=== PATIENT | male | born 1955 | race American Indian/Alaskan Native ===

== ENCOUNTER 2018-04-17 15:12 | Inpatient (IN) | payer MEDICARE ==
--- NOTE | 2018-04-17 16:30 | Emergency Department Report ---
HPI - General Chief Complaint: Weakness Time Seen by Provider: 04/17/18 16:12 - HPI HPI: Room 7 The patient is 62-year-old male presented with a chief complaint weakness. The patient states he's had weakness and shortness of breath since yesterday. Pat jasmyn states he had an intermittent nosebleed throughout the night until early this morning. Patient denies cough or history of fever. Patient denies chest pain but admits to bilateral stump pain from his bilateral AKA's. Location: [See above] Duration: Constant since yesterday Quality: Weakness Severity: Moderate Modifying factors: [see above] Context: [see above] Mode of transportation: [not driving] ED Past Medical Hx - Past Medical History Previous Medical History?: Yes Hx Hypertension: Yes Hx Heart Attack/AMI: Yes Hx Congestive Heart Failure: Yes Hx Diabetes: Yes Hx Renal Disease: Yes (ZULLY) Hx Arthritis: Yes Hx Psychiatric Treatment: Yes (depression) Hx Asthma: Yes Hx COPD: Yes Additional medical history: angina, atrial fib, CAD, DVT, atrial flutter, Anemia, GI bleed, polysubstance abuse, hyperkalemia, hyponatremia, thrombocytopenia, PVD, Alcohol, cocaine, marijuana abuse - Surgical History Past Surgical History?: Yes Hx Coronary Stent: Yes (x4) Hx Pacemaker: Yes Additional Surgical History: Bilateral AKA - Family History Family history: no significant - Social History Smoking Status: Current Every Day Smoker (1/7 pack per day) Substance Use Type: None ED Review of Systems ROS: Stated complaint: WEAKNESS/NOSE BLEED Other details as noted in HPI Constitutional: weakness Eyes: denies: eye pain ENT: denies: throat pain Respiratory: shortness of breath Cardiovascular: denies: chest pain Endocrine: no symptoms reported Gastrointestinal: other (decreased appetite). denies: abdominal pain Genitourinary: denies: dysuria Musculoskeletal: myalgia Neurological: denies: headache Physical Exam - Physical Exam Vital Signs: Vital Signs 04/17/18 15:12 Temperature 98.5 F Pulse Rate 83 Respiratory 17 Rate Blood Pressure 131/40 O2 Sat by Pulse 97 Oximetry Physical Exam: GENERAL: The patient is well-developed well-nourished male lying on stretcher not appearing to be in acute distress. [] HEENT: Normocephalic. Atraumatic. Extraocular motions are intact. Patient has moist mucous membranes. NECK: Supple. Trachea midline CHEST/LUNGS: Clear to auscultation. There is no respiratory distress noted. HEART/CARDIOVASCULAR: Regular. There is no tachycardia. There is no gallop rub or murmur. ABDOMEN: Abdomen is soft, nontender. Patient has normal bowel sounds. There is no abdominal distention. SKIN: There is no rash. There is no diaphoresis. NEURO: The patient is awake, alert, and oriented. The patient is cooperative. The patient has normal speech MUSCULOSKELETAL: There is no evidence of acute injury. ED Course Vital Signs 04/17/18 15:12 Temperature 98.5 F Pulse Rate 83 Respiratory 17 Rate Blood Pressure 131/40 O2 Sat by Pulse 97 Oximetry ED Medical Decision Making - Lab Data Result diagrams: 04/17/18 16:52 04/17/18 16:52 Laboratory Tests 04/17/18 04/17/18 04/17/18 16:52 16:52 16:52 WBC 5.7 RBC 1.85 L Hgb 5.3 L* Hct 15.9 L* MCV 86 MCH 29 MCHC 34 RDW 19.7 H Plt Count 162 Lymph % (Auto) 20.1 [place] % (Auto) 5.7 Eos % (Auto) 0.7 Baso % (Auto) 0.5 Lymph # 1.1 L [place] # 0.3 Eos # 0.0 Baso # 0.0 Seg Neutrophils % 73.0 H Seg Neutrophils # 4.1 PT 59.6 H INR 6.93 H* APTT 69.9 H* D-Dimer 613.63 H Sodium 150 H Potassium 2.9 L* Chloride 111.2 H Carbon Dioxide 25 Anion Gap 17 BUN 47 H Creatinine 1.3 Estimated GFR > 60 BUN/Creatinine Ratio 36 Glucose 119 H Calcium 8.2 L Magnesium Total Bilirubin 0.60 AST 20 ALT 10 Alkaline Phosphatase 82 Total Creatine Kinase 35 L CK-MB (CK-2) 2.0 CK-MB (CK-2) Rel Index 5.7 H Troponin T 0.084 H NT-Pro-B Natriuret Pep 3276 H Total Protein 6.8 Albumin 3.0 L Albumin/Globulin Ratio 0.8 Triglycerides 69 Cholesterol 89 LDL Cholesterol Direct 46 L HDL Cholesterol 35 L Cholesterol/HDL Ratio 2.54 TSH Free T4 Urine Color Urine Turbidity Urine pH Ur Specific [place] Urine Protein Urine Glucose (UA) Urine Ketones Urine Blood Urine Nitrite Urine Bilirubin Urine Urobilinogen Ur Leukocyte Esterase Urine WBC (Auto) Urine RBC (Auto) U Epithel Cells (Auto) Urine Bacteria (Auto) 04/17/18 04/17/18 04/17/18 16:52 16:52 17:34 WBC RBC Hgb Hct MCV MCH MCHC RDW Plt Count Lymph % (Auto) [place] % (Auto) Eos % (Auto) Baso % (Auto) Lymph # Benson # Eos # Baso # Seg Neutrophils % Seg Neutrophils # PT INR APTT D-Dimer Sodium Potassium Chloride Carbon Dioxide Anion Gap BUN Creatinine Estimated GFR BUN/Creatinine Ratio Glucose Calcium Magnesium 1.40 L Total Bilirubin AST ALT Alkaline Phosphatase Total Creatine Kinase CK-MB (CK-2) CK-MB (CK-2) Rel Index Troponin T NT-Pro-B Natriuret Pep Total Protein Albumin Albumin/Globulin Ratio Triglycerides Cholesterol LDL Cholesterol Direct HDL Cholesterol Cholesterol/HDL Ratio TSH 1.390 Free T4 1.51 H Urine Color Yellow Urine Turbidity Clear Urine pH 5.0 Ur Specific [place] 1.009 Urine Protein <15 mg/dl Urine Glucose (UA) Neg Urine Ketones Neg Urine Blood Neg Urine Nitrite Pos Urine Bilirubin Neg Urine Urobilinogen 2.0 Ur Leukocyte Esterase Mod Urine WBC (Auto) 101.0 H Urine RBC (Auto) 1.0 U Epithel Cells (Auto) 1.0 Urine Bacteria (Auto) 1+ - EKG Data -: EKG Interpreted by Me EKG shows normal: sinus rhythm Rate: normal - EKG Data When compared to previous EKG there are: previous EKG unavailable Interpretation: nonspecific ST-T wave hernan (T-wave inversions in V5, V6, 1, aVL) - Radiology Data Radiology results: report reviewed (chest x-ray), image reviewed (chest x-ray) interpreted by me: Chest x-ray-right pleural effusion [facility] [address] [place] [address] XRay Report Signed Patient: ROXANE BARNHART MR#: [id number] : 1955 Acct:[id number] Age/Sex: 62 / M ADM Date: 04/17/18 Loc: ED Attending Dr: Ordering Physician: ANDREY VORA MD Date of Service: 04/17/18 Procedure(s): XR chest 1V ap Accession Number(s): [id number] cc: ANDREY VORA MD Fluoro Time In Minutes: FINAL REPORT EXAM: XR CHEST 1V AP HISTORY: shortness of breath COMPARISON: None. TECHNIQUE: Single frontal view of the chest FINDINGS: Left-sided defibrillator and median sternotomy wires are intact. There is mild cardiomegaly. There are streaky perihilar opacities. There is a small right pleural effusion. No pneumothorax. No acute bony or soft tissue abnormality. There are surgical clips in the right axilla. IMPRESSION: Findings of congestive heart failure, including mild cardiomegaly, interstitial edema, and small right pleural effusion. Transcribed By: DELVIN Dictated By: DK CASTANO MD Electronically Authenticated By: DK CASTANO MD Signed Date/Time: 04/17/181641 DD/ 40 TD/TT: 04/17/181640 - Differential Diagnosis symptomatic anemia, hyponatremia, GI bleed, hypothyroidism Critical care attestation.: If time is entered above; I have spent that time in minutes in the direct care of this critically ill patient, excluding procedure time. ED Disposition Clinical Impression: Weakness, Pleural effusion, Symptomatic anemia, Hypokalemia, UTI (urinary tract infection) Disposition: OP ADMIT IP TO THIS HOSP Is pt being admited?: Yes Does the pt Need Aspirin: No Condition: Fair Time of Disposition: 17:54 (hospitalist paged (Dr Hatch))
--- NOTE | 2018-04-17 16:42 | XRay Report ---
FINAL REPORT EXAM: XR CHEST 1V AP HISTORY: shortness of breath COMPARISON: None. TECHNIQUE: Single frontal view of the chest FINDINGS: Left-sided defibrillator and median sternotomy wires are intact. There is mild cardiomegaly. There are streaky perihilar opacities. There is a small right pleural effusion. No pneumothorax. No acute bony or soft tissue abnormality. There are surgical clips in the right axilla. IMPRESSION: Findings of congestive heart failure, including mild cardiomegaly, interstitial edema, and small righ t pleural effusion.
[2018-04-17 17:06] LABS: Basophils % (Auto) 0.5 % (0.0-1.8); Eosinophils % (Auto) 0.7 % (0.0-4.3); Lymphocytes # (Auto) 1.1 K/mm3 (1.2-5.4); Lymphocytes % (Auto) 20.1 % (13.4-35.0); Mean Corpuscular HGB Conc 34 % (32-34); Mean Corpuscular Volume 86 fl (84-94); Monocytes # (Auto) 0.3 K/mm3 (0.0-0.8); Monocytes % (Auto) 5.7 % (0.0-7.3); Platelet Count 162 K/mm3 (140-440); Red Blood Count 1.85 M/mm3 (3.65-5.03); Red Cell Distribution Width 19.7 % (13.2-15.2)
[2018-04-17] MEDS ORDERED: NORCO 5/325 PO ONE (17:16)
[2018-04-17 17:29] LABS: Alanine Aminotransferase 10 units/L (7-56)
[2018-04-17 17:36] LABS: Free T4 (Free Thyroxine) 1.51 ng/dL (0.76-1.46)
[2018-04-17 17:37] LABS: Hemoglobin 5.3 gm/dl (11.8-15.2)
[2018-04-17] MEDS ORDERED: NACL 0.9% 500 ML 500 ML IV ONE (17:37)
[2018-04-17 17:38] LABS: Hematocrit 15.9 % (35.5-45.6); INR 6.93 (0.87-1.13); Partial Thromboplastin Time 69.9 Sec. (24.2-36.6)
[2018-04-17] MEDS ORDERED: MAGNESIUM SULFATE 2GM/50ML 2 GM/50 ML BAG IV ONE (17:39)
[2018-04-17 17:45] LABS: BUN/Creatinine Ratio 36; Blood Urea Nitrogen 47 mg/dL (9-20); Calcium 8.2 mg/dL (8.4-10.2); Hemolysis Index 5
[2018-04-17] MEDS ORDERED: K-DUR PO ONE (17:54)
[2018-04-17 17:56] LABS: Bacteria,Urine 1+ /HPF (Negative); Bilirubin,Urine NEG (Negative); Blood,Urine NEG (Negative); Color,Urine Yellow (Yellow); Protein,Urine <15 mg/dL mg/dL (Negative)
[2018-04-17 18:00] LABS: Chol/HDL Ratio 2.54 %; HDL Cholesterol 35 mg/dL (40-59); LDL Cholesterol,Direct 46 mg/dL (50-130)
[2018-04-17] MEDS ORDERED: LEVAQUIN 750MG/150ML 750 MG/150 ML BAG IV ONE (18:27)
[2018-04-17] MEDS ORDERED: DILAUDID IV ONE (18:40)
[2018-04-17] MEDS ORDERED: ZOFRAN IV ONE (18:40)
[2018-04-17] MEDS ORDERED: ZOFRAN ONE (18:43)
[2018-04-17] MEDS ORDERED: DILAUDID ONE (18:43)
[2018-04-17] MEDS ORDERED: NACL 0.9% 250ML 250 ML ONE (20:26)
[2018-04-17] MEDS ORDERED: SODIUM CHLORIDE FLUSH SYRINGE 10 ML IV PRN (22:36)
[2018-04-17] MEDS ORDERED: D50W (25GM) Syringe IV PRN (22:36)
--- NOTE | 2018-04-18 00:26 | History and Physical Report ---
History of Present Illness Date of examination: 04/17/18 Date of admission: 04/17/18 18:25 History of present illness: 62-year-old man with a history of hypertension, coronary artery disease, CHF, diabetes, chronic kidney disease, depression, asthma, COPD, A. fib on Coumadin comes emergency room with complaints of nosebleed yesterday 2 days, he had multiple episodes. He currently has no nosebleed Review of systems Constitutional: no weight loss, chills, fever Ears, eyes, nose, mouth and throat: no nasal congestion, no nasal discharge, no sinus pressure, no vision change, no red eye. Neck: No neck pain or rigidity. Cardiovascular: no palpitations, chest pain Respiratory: no cough, shortness of breath Gastrointestinal: no hematochezia, abdominal pain Genitourinary : no frequency , no hematuria Musculoskeletal: no joint swelling or muscle ache Integumentary: no rash, no pruritis Neurological: no parathesias, no focal weakness Endocrine: no cold or heat intolerance, no polyuria or polydipsia Hematologic/Lymphatic: no easy bruising, no easy bleeding, no gland swelling Allergic/Immunologic: no urticaria, no angioedema. PAST MEDICAL HISTORY:hypertension, coronary artery disease, CHF, diabetes, chronic kidney disease, depression, asthma, COPD, A. fib PAST SURGICAL HISTORY: Pacemaker, bilateral AKA SOCIAL HISTORY: Denies alcohol, drugs, tobacco FAMILY HISTORY: Hypertension Medications and Allergies Allergies Allergy/AdvReac Type Severity Reaction Status Date / Time No Known Allergies Allergy Verified 04/17/18 15:59 Active Meds: Active Medications Acetaminophen (Tylenol) 650 mg PO Q4H PRN PRN Reason: Pain MILD(1-3)/Fever >100.5/SCHULZ Dextrose (D50w (25gm) Syringe) 50 ml IV PRN PRN PRN Reason: Hypoglycemia Ceftriaxone Sodium (Rocephin/Ns 1 Gm/50 Ml) 1 gm in 50 mls @ 100 mls/hr IV Q24HR SUN; Protocol Insulin Human Lispro (Humalog) 0 unit SUB-Q ACHS SUN; Protocol Ondansetron HCl (Zofran) 4 mg IV Q8H PRN PRN Reason: Nausea And Vomiting Sodium Chloride (Sodium Chloride Flush Syringe 10 Ml) 10 ml IV BID SUN Sodium Chloride (Sodium Chloride Flush Syringe 10 Ml) 10 ml IV PRN PRN PRN Reason: LINE FLUSH Exam - Physical Exam Narrative exam: General Apperance: The patient lying in bed, breathing comfortable HEENT: Normocephalic, atraumatic. Pupils equally round and reactive to light, EOMI, no sclericterus or JVD or thyromegaly or nodule. , no carotid bruit, mucous membranes moist, no exudate or erythema Heart: S1-S2, regular is rhythm Lungs: Clear to auscultation bilaterally, breathing comfortable Abdomen: Positive bowel sounds, soft, nontender, nondistended, no organomegaly Extremities: Bilateral AKA, No edema cyanosis clubbing Skin: no rash, nodule, warm and dry Neuro: cranial nerves 2-12 intact, speech is fluent, motor/sensory intact - Constitutional Vitals: Temp Pulse Resp BP Pulse Ox 97.6 F 78 17 129/68 98 04/17/18 22:25 04/17/18 22:25 04/17/18 22:25 04/17/18 22:25 04/17/18 22:25 Results - Labs CBC & Chem 7: 04/17/18 16:52 04/17/18 16:52 Labs: Abnormal lab results 04/17/18 04/17/18 04/17/18 Range/Units 16:52 16:52 16:52 RBC 1.85 L (3.65-5.03) M/mm3 Hgb 5.3 L* (11.8-15.2) gm/dl Hct 15.9 L* (35.5-45.6) % RDW 19.7 H (13.2-15.2) % Lymph # 1.1 L (1.2-5.4) K/mm3 Seg Neutrophils % 73.0 H (40.0-70.0) % PT 59.6 H (12.2-14.9) Sec. INR 6.93 H* (0.87-1.13) APTT 69.9 H* (24.2-36.6) Sec. D-Dimer 613.63 H (0-234) ng/mlDDU Sodium 150 H (137-145) mmol/L Potassium 2.9 L* (3.6-5.0) mmol/L Chloride 111.2 H (98-107) mmol/L BUN 47 H (9-20) mg/dL Glucose 119 H (75-100) mg/dL Calcium 8.2 L (8.4-10.2) mg/dL Magnesium (1.7-2.3) mg/dL Total Creatine Kinase 35 L (55-170) units/L CK-MB (CK-2) Rel Index 5.7 H (0-4) Troponin T 0.084 H (0.00-0.029) ng/mL NT-Pro-B Natriuret Pep 3276 H (0-900) pg/mL Albumin 3.0 L (3.9-5) g/dL LDL Cholesterol Direct 46 L (50-130) mg/dL HDL Cholesterol 35 L (40-59) mg/dL Free T4 (0.76-1.46) ng/dL Urine WBC (Auto) (0.0-6.0) /HPF Crossmatch 04/17/18 04/17/18 04/17/18 Range/Units 16:52 16:52 16:52 RBC (3.65-5.03) M/mm3 Hgb (11.8-15.2) gm/dl Hct (35.5-45.6) % RDW (13.2-15.2) % Lymph # (1.2-5.4) K/mm3 Seg Neutrophils % (40.0-70.0) % PT (12.2-14.9) Sec. INR (0.87-1.13) APTT (24.2-36.6) Sec. D-Dimer (0-234) ng/mlDDU Sodium (137-145) mmol/L Potassium (3.6-5.0) mmol/L Chloride (98-107) mmol/L BUN (9-20) mg/dL Glucose (75-100) mg/dL Calcium (8.4-10.2) mg/dL Magnesium 1.40 L (1.7-2.3) mg/dL Total Creatine Kinase (55-170) units/L CK-MB (CK-2) Rel Index (0-4) Troponin T (0.00-0.029) ng/mL NT-Pro-B Natriuret Pep (0-900) pg/mL Albumin (3.9-5) g/dL LDL Cholesterol Direct (50-130) mg/dL HDL Cholesterol (40-59) mg/dL Free T4 1.51 H (0.76-1.46) ng/dL Urine WBC (Auto) (0.0-6.0) /HPF Crossmatch See Detail 04/17/18 04/17/18 Range/Units 17:34 23:08 RBC (3.65-5.03) M/mm3 Hgb (11.8-15.2) gm/dl Hct (35.5-45.6) % RDW (13.2-15.2) % Lymph # (1.2-5.4) K/mm3 Seg Neutrophils % (40.0-70.0) % PT (12.2-14.9) Sec. INR (0.87-1.13) APTT (24.2-36.6) Sec. D-Dimer (0-234) ng/mlDDU Sodium (137-145) mmol/L Potassium (3.6-5.0) mmol/L Chloride (98-107) mmol/L BUN (9-20) mg/dL Glucose (75-100) mg/dL Calcium (8.4-10.2) mg/dL Magnesium (1.7-2.3) mg/dL Total Creatine Kinase 39 L (55-170) units/L CK-MB (CK-2) Rel Index 5.1 H (0-4) Troponin T (0.00-0.029) ng/mL NT-Pro-B Natriuret Pep (0-900) pg/mL Albumin (3.9-5) g/dL LDL Cholesterol Direct (50-130) mg/dL HDL Cholesterol (40-59) mg/dL Free T4 (0.76-1.46) ng/dL Urine WBC (Auto) 101.0 H (0.0-6.0) /HPF Crossmatch - Imaging and Cardiology EKG: image reviewed Chest x-ray: report reviewed Assessment and Plan Assessment Blood loss anemia Nosebleed, resolved Urinary tract infection Coagulopathy Hypernatremia Coronary artery disease Hypertension CHF Diabetes Chronic kidney disease Depression COPD A. fib Plan Transfuse packed red blood cells Monitor PT/INR, hold coumadin Start IV Rocephin, follow cultures Continue appropriate outpatient medication DVT prophylaxis
[2018-04-18] MEDS ORDERED: NACL 0.9% 500 ML 500 ML IV SCH (02:31)
[2018-04-18] MEDS: TYLENOL PO PRN (02:39)
[2018-04-18] MEDS: HumaLOG SUB-Q SCH ×4 (08:29→22:16)
[2018-04-18] MEDS: MORPHINE IV PRN ×4 (09:20→23:56)
[2018-04-18] MEDS: SODIUM CHLORIDE FLUSH SYRINGE 10 ML IV SCH ×2 (09:23→22:16)
[2018-04-18] MEDS: ROCEPHIN/NS 1 GM/50 ML 1 GM/50 ML BAG IV SCH (10:30)
--- NOTE | 2018-04-18 12:12 | Consultation ---
History of Present Illness Consult date: 04/18/18 Requesting physician: JEANETTE GARZA Consult reason: congestive heart failure History of present illness: The patient is well-known to me from many years ago. However, he has not been to our local office for a few years now. It appears that he has been hospitalized multiple times at [facility] and even recently. He claims that following his last discharge from rehabilitation, his INR has not been checked. He presents to the ER with a 2 day history of epistaxis which he claims produced significant amount of clots. He has also noticed melanotic stools for about 2 weeks. In addition, he complains of worsening of chronic dyspnea as well as chronic orthopnea. There is no chest pain. Past History Past Medical History: atrial fib (PAF/Flutter), arrhythmia (AVNRT; Failed abla tion attempt for AFlutter), CAD, diabetes, heart failure (Chronic HFrEF), hypertension, other (Ischemic CMP, EF 30-35% in 03/05; Gastric ulcer; Hep C) Past Surgical History: CABG, PTCA, Other (s/p Bilateral AKA; ICD) Social history: denies: smoking, alcohol abuse Family history: denies: CAD Medications and Allergies Allergies Allergy/AdvReac Type Severity Reaction Status Date / Time No Known Allergies Allergy Verified 04/17/18 15:59 Active Meds: Active Medications Acetaminophen (Tylenol) 650 mg PO Q4H PRN PRN Reason: Pain MILD(1-3)/Fever >100.5/SCHULZ Last Admin: 04/18/18 02:39 Dose: 650 mg Documented by: Dextrose (D50w (25gm) Syringe) 50 ml IV PRN PRN PRN Reason: Hypoglycemia Ceftriaxone Sodium (Rocephin/Ns 1 Gm/50 Ml) 1 gm in 50 mls @ 100 mls/hr IV Q24HR SUN; Protocol Last Admin: 04/18/18 10:30 Dose: 100 mls/hr Documented by: Sodium Chloride (Nacl 0.9% 500 Ml) 500 mls @ 50 mls/hr IV DIRECT SUN Insulin Human Lispro (Humalog) 0 unit SUB-Q ACHS SUN; Protocol Last Admin: 04/18/18 08:29 Dose: Not Given Documented by: Morphine Sulfate (Morphine) 2 mg IV Q4H PRN PRN Reason: Pain, Moderate (4-6) Last Admin: 04/18/18 09:20 Dose: 2 mg Documented by: Ondansetron HCl (Zofran) 4 mg IV Q8H PRN PRN Reason: Nausea And Vomiting Sodium Chloride (Sodium Chloride Flush Syringe 10 Ml) 10 ml IV BID SUN Last Admin: 04/18/18 09:23 Dose: 10 ml Documented by: Sodium Chloride (Sodium Chloride Flush Syringe 10 Ml) 10 ml IV PRN PRN PRN Reason: LINE FLUSH Review of Systems Constitutional: no fever, no chills Ears, nose, mouth and throat: epistaxis, no ear pain, no ear discharge, no sore throat Cardiovascular: orthopnea, shortness of breath, dyspnea on exertion, no chest pain Respiratory: shortness of breath, dyspnea on exertion, no cough, no hemoptysis Gastrointestinal: nausea, no abdominal pain, no vomiting, no diarrhea, no constipation Genitourinary Male: no dysuria, no hematuria, no urinary frequency Musculoskeletal: no neck stiffness, no neck pain, no myalgias Integumentary: no rash, no pruritis Neurological: no weakness, no parathesias, no headaches Endocrine: no cold intolerance, no heat intolerance Hematologic/Lymphatic: easy bleeding, no easy bruising Allergic/Immunologic: no urticaria, no angioedema Physical Examination Vital Signs Last Vital Signs Temp 98.5 F 04/18/18 06:00 Pulse 83 04/18/18 07:38 Resp 18 04/18/18 07:38 BP 110/55 04/18/18 07:38 Pulse Ox 100 04/18/18 07:38 General appearance: no acute distress HEENT: Positive: EOMI, Normocephaly, Mucus Membranes Moist Neck: Positive: neck supple, trachea midline, JVD/HJR (elevated) Cardiac: Positive: Reg Rate and Rhythm, S1/S2 Lungs: Positive: clear to auscultation Neuro: Positive: Grossly Intact Abdomen: Positive: Soft, Active Bowel Sounds. Negative: Tender Skin: Positive: Clear. Negative: Rash Musculoskeletal: Normal Range of Motion Extremities: Present: Other (s/p bilateral AKA). Absent: edema Results 04/17/18 16:52 04/17/18 16:52 Cardiac Enzymes 04/17/18 04/17/18 Range/Units 16:52 23:08 AST 20 (5-40) units/L CK-MB (CK-2) 2.0 2.0 (0.0-4.0) ng/mL Coagulation 04/17/18 Range/Units 16:52 PT 59.6 H (12.2-14.9) Sec. INR 6.93 H* (0.87-1.13) APTT 69.9 H* (24.2-36.6) Sec. Lipids 04/17/18 Range/Units 16:52 Triglycerides 69 (2-149) mg/dL Cholesterol 89 (50-199) mg/dL HDL Cholesterol 35 L (40-59) mg/dL Cholesterol/HDL Ratio 2.54 % CBC 04/17/18 Range/Units 16:52 WBC 5.7 (4.5-11.0) K/mm3 RBC 1.85 L (3.65-5.03) M/mm3 Hgb 5.3 L* (11.8-15.2) gm/dl Hct 15.9 L* (35.5-45.6) % Plt Count 162 (140-440) K/mm3 Lymph # 1.1 L (1.2-5.4) K/mm3 [place] # 0.3 (0.0-0.8) K/mm3 Eos # 0.0 (0.0-0.4) K/mm3 Baso # 0.0 (0.0-0.1) K/mm3 Comprehensive Metabolic Panel 04/17/18 Range/Units 16:52 Sodium 150 H (137-145) mmol/L Potassium 2.9 L* (3.6-5.0) mmol/L Chloride 111.2 H (98-107) mmol/L Carbon Dioxide 25 (22-30) mmol/L BUN 47 H (9-20) mg/dL Creatinine 1.3 (0.8-1.5) mg/dL Glucose 119 H (75-100) mg/dL Calcium 8.2 L (8.4-10.2) mg/dL AST 20 (5-40) units/L ALT 10 (7-56) units/L Alkaline Phosphatase 82 (35-129) units/L Total Protein 6.8 (6.3-8.2) g/dL Albumin 3.0 L (3.9-5) g/dL - Imaging and Cardiology EKG: image reviewed EKG interpretations - Telemetry EKG Rhythm: Sinus Rhythm - EKG Sinus rhythms and dysrhythmias: sinus rhythm Repolarization changes or abnormalities: ST or T wave suggestive of ischemia Assessment and Plan Consider PRBC transfusion. His Guideline-Directed cardiac medications will be resumed as tolerated. Need to also exclude GI bleed. - Patient Problems (1) Epistaxis Current Visit: Yes Status: Acute (2) Melena Current Visit: Yes Status: Acute (3) Severe anemia Current Visit: Yes Status: Acute (4) Supratherapeutic INR Current Visit: Yes Status: Acute (5) Acute on chronic HFrEF (heart failure with reduced ejection fraction) Current Visit: Yes Status: Acute (6) Ischemic cardiomyopathy Current Visit: Yes Status: Acute (7) CAD (coronary artery disease) Current Visit: Yes Status: Chronic Qualifiers: Coronary Disease-Associated Artery/Lesion type: [place] artery (8) Hx of CABG Current Visit: Yes Status: Chronic (9) AICD (automatic cardioverter/defibrillator) present Current Visit: Yes Status: Acute (10) PAF (paroxysmal atrial fibrillation) Current Visit: Yes Status: Chronic (11) H/O gastric ulcer Current Visit: Yes Status: Resolved (12) UTI (urinary tract infection) Current Visit: Yes Status: Acute (13) S/P AKA (above knee amputation) bilateral Current Visit: Yes Status: Acute (14) Diabetes mellitus Current Visit: Yes Status: Acute
--- NOTE | 2018-04-18 12:27 | Progress Note ---
Assessment and Plan Assessment and plan: Severe anemia due to acute blood loss. Epistaxis and possible GI loss hemoglobin 5.3 and only 5.9 after 2 Units PRBC. Will transfuse 2 units PRBC more Coagulopathy with INR now 9, due to Coumadin Give FFP and Vitamin K I discussed with Cardiology Hold Coumadin Epistaxis due to coagulopathy. patient stated he was having bleeding with clots from nose Melena stool. Consulted GI to evaluate Atrial fibrillation, Cooumadin on hold due to active bleeding CAD No chest pain Diabetes mellitus type 2. Fingerstick glucose Chronic systolic heart failure Depression UTI Started on ceftriaxone Full code status History Interval history: Epistaxis No chest pain Dark stools Hospitalist Physical - Physical exam Narrative exam: GEN: Not in acute distress, lying in bed, malnourished HEENT: Normocephalic, atraumatic, Neck: supple, No JVD Lungs: Clear to auscultation bilaterally, no wheeze Heart:S1 and S2 regular, no murmurs, rubs or gallop, Abd:soft, non tender, non distended, normal bowel sounds Ext: No edema, no clubbing or cyanosis Neuro: Awake,alert, oriented x 3, No focal neurological signs - Constitutional Vitals: Temp Pulse Resp BP Pulse Ox 98.5 F 83 18 110/55 100 04/18/18 06:00 04/18/18 07:38 04/18/18 07:38 04/18/18 07:38 04/18/18 07:38 General appearance: Present: no acute distress Results - Labs CBC & Chem 7: 04/18/18 13:09 04/18/18 13:09 Labs: Laboratory Last Values WBC 5.7 K/mm3 (4.5-11.0) 04/17/18 16:52 RBC 1.85 M/mm3 (3.65-5.03) L 04/17/18 16:52 Hgb 5.3 gm/dl (11.8-15.2) L* 04/17/18 16:52 Hct 15.9 % (35.5-45.6) L* 04/17/18 16:52 MCV 86 fl (84-94) 04/17/18 16:52 MCH 29 pg (28-32) 04/17/18 16:52 MCHC 34 % (32-34) 04/17/18 16:52 RDW 19.7 % (13.2-15.2) H 04/17/18 16:52 Plt Count 162 K/mm3 (140-440) 04/17/18 16:52 Lymph % (Auto) 20.1 % (13.4-35.0) 04/17/18 16:52 [place] % (Auto) 5.7 % (0.0-7.3) 04/17/18 16:52 Eos % (Auto) 0.7 % (0.0-4.3) 04/17/18 16:52 Baso % (Auto) 0.5 % (0.0-1.8) 04/17/18 16:52 Lymph # 1.1 K/mm3 (1.2-5.4) L 04/17/18 16:52 [place] # 0.3 K/mm3 (0.0-0.8) 04/17/18 16:52 Eos # 0.0 K/mm3 (0.0-0.4) 04/17/18 16:52 Baso # 0.0 K/mm3 (0.0-0.1) 04/17/18 16:52 Seg Neutrophils % 73.0 % (40.0-70.0) H 04/17/18 16:52 Seg Neutrophils # 4.1 K/mm3 (1.8-7.7) 04/17/18 16:52 PT 59.6 Sec. (12.2-14.9) H 04/17/18 16:52 INR 6.93 (0.87-1.13) H* 04/17/18 16:52 APTT 69.9 Sec. (24.2-36.6) H* 04/17/18 16:52 D-Dimer 613.63 ng/mlDDU (0-234) H 04/17/18 16:52 Sodium 150 mmol/L (137-145) H 04/17/18 16:52 Potassium 2.9 mmol/L (3.6-5.0) L* 04/17/18 16:52 Chloride 111.2 mmol/L (98-107) H 04/17/18 16:52 Carbon Dioxide 25 mmol/L (22-30) 04/17/18 16:52 Anion Gap 17 mmol/L 04/17/18 16:52 BUN 47 mg/dL (9-20) H 04/17/18 16:52 Creatinine 1.3 mg/dL (0.8-1.5) 04/17/18 16:52 Estimated GFR > 60 ml/min 04/17/18 16:52 BUN/Creatinine Ratio 36 % 04/17/18 16:52 Glucose 119 mg/dL (75-100) H 04/17/18 16:52 POC Glucose 134 (70-105) H 04/18/18 10:41 Calcium 8.2 mg/dL (8.4-10.2) L 04/17/18 16:52 Magnesium 1.40 mg/dL (1.7-2.3) L 04/17/18 16:52 Total Bilirubin 0.60 mg/dL (0.1-1.2) 04/17/18 16:52 AST 20 units/L (5-40) 04/17/18 16:52 ALT 10 units/L (7-56) 04/17/18 16:52 Alkaline Phosphatase 82 units/L (35-129) 04/17/18 16:52 Total Creatine Kinase 39 units/L (55-170) L 04/17/18 23:08 CK-MB (CK-2) 2.0 ng/mL (0.0-4.0) 04/17/18 23:08 CK-MB (CK-2) Rel Index 5.1 (0-4) H 04/17/18 23:08 Troponin T 0.065 ng/mL (0.00-0.029) H D 04/17/18 23:08 NT-Pro-B Natriuret Pep 3276 pg/mL (0-900) H 04/17/18 16:52 Total Protein 6.8 g/dL (6.3-8.2) 04/17/18 16:52 Albumin 3.0 g/dL (3.9-5) L 04/17/18 16:52 Albumin/Globulin Ratio 0.8 % 04/17/18 16:52 Triglycerides 69 mg/dL (2-149) 04/17/18 16:52 Cholesterol 89 mg/dL (50-199) 04/17/18 16:52 LDL Cholesterol Direct 46 mg/dL (50-130) L 04/17/18 16:52 HDL Cholesterol 35 mg/dL (40-59) L 04/17/18 16:52 Cholesterol/HDL Ratio 2.54 % 04/17/18 16:52 TSH 1.390 mlU/mL (0.270-4.200) 04/17/18 16:52 Free T4 1.51 ng/dL (0.76-1.46) H 04/17/18 16:52 Urine Color Yellow (Yellow) 04/17/18 17:34 Urine Turbidity Clear (Clear) 04/17/18 17:34 Urine pH 5.0 (5.0-7.0) 04/17/18 17:34 Ur Specific [place] 1.009 (1.003-1.030) 04/17/18 17:34 Urine Protein <15 mg/dl mg/dL (Negative) 04/17/18 17:34 Urine Glucose (UA) Neg mg/dL (Negative) 04/17/18 17:34 Urine Ketones Neg mg/dL (Negative) 04/17/18 17:34 Urine Blood Neg (Negative) 04/17/18 17:34 Urine Nitrite Pos (Negative) 04/17/18 17:34 Urine Bilirubin Neg (Negative) 04/17/18 17:34 Urine Urobilinogen 2.0 mg/dL (<2.0) 04/17/18 17:34 Ur Leukocyte Esterase Mod (Negative) 04/17/18 17:34 Urine WBC (Auto) 101.0 /HPF (0.0-6.0) H 04/17/18 17:34 Urine RBC (Auto) 1.0 /HPF (0.0-6.0) 04/17/18 17:34 U Epithel Cells (Auto) 1.0 /HPF (0-13.0) 04/17/18 17:34 Urine Bacteria (Auto) 1+ /HPF (Negative) 04/17/18 17:34 Blood Type A POSITIVE 04/17/18 16:52 Antibody Screen Negative 04/17/18 16:52 Crossmatch See Detail 04/17/18 16:52
[2018-04-18 13:26] LABS: Basophils % (Auto) 0.4 % (0.0-1.8); Eosinophils % (Auto) 0.4 % (0.0-4.3); Lymphocytes # (Auto) 1.9 K/mm3 (1.2-5.4); Lymphocytes % (Auto) 18.5 % (13.4-35.0); Mean Corpuscular HGB Conc 34 % (32-34); Mean Corpuscular Volume 88 fl (84-94); Monocytes # (Auto) 0.6 K/mm3 (0.0-0.8); Monocytes % (Auto) 5.3 % (0.0-7.3); Platelet Count 109 K/mm3 (140-440); Red Blood Count 1.99 M/mm3 (3.65-5.03); Red Cell Distribution Width 16.1 % (13.2-15.2)
[2018-04-18 13:44] LABS: Hematocrit 17.5 % (35.5-45.6); Hemoglobin 5.9 gm/dl (11.8-15.2); INR 9.23 (0.87-1.13); Partial Thromboplastin Time 60.4 Sec. (24.2-36.6)
[2018-04-18 13:47] LABS: BUN/Creatinine Ratio 42; Blood Urea Nitrogen 54 mg/dL (9-20); Calcium 7.7 mg/dL (8.4-10.2); Hemolysis Index 16
[2018-04-18] MEDS ORDERED: NACL 0.9% 500 ML 500 ML IV NR (13:48)
[2018-04-18] MEDS ORDERED: PROTONIX IV SCH (14:00)
[2018-04-18] MEDS ORDERED: VITAMIN K (ADULT ONLY) SUB-Q STA (14:03)
[2018-04-18] MEDS: DEMADEX PO SCH (14:17)
--- NOTE | 2018-04-18 14:41 | Gastroenterology Consultation ---
Addendum entered and electronically signed by FARAZ SALMERON MD 04/18/18 18:09: pt seen and examined, chart reviewed, consult below reviewed - pt w/ signs GI bleed with epigastric pain and high INR - possible UGI bleed vss p.e.: nad abd: soft - possible EGD in am - other rec as outlined below Original Note: History of Present Illness - Reason for Consult Consult date: 04/18/18 anemia, melena, no coumadin - History of Present Illness Patient is a 62 y/o male with PMH of HTN, CAD, Afib (on coumadin), heart failure, DM, CKD, depression, asthma, and COPD who presented to ED with c/o nosebleed. Upon admission he was found to be severely anemic with supratherapeutic INR and is now having melena to which GI has been consulted. This afternoon patient was resting in bed, ill appearing, but w/o acute distress. He reports 1 episode of hematemesis this am and black stools x 2 weeks. Admit to associated epigastric pain and mild SOB (chronic). No fever, CP, or hematochezia. Denies a hx of liver disease or PUD, however according to chart review has a hx of hep C and peptic ulcer (noted to be poor historian). He is unsure if he has ever had an EGD. Last colonoscopy several years ago per pt reports (results unknown). by mouth antibiotics Past History Past Medical History: atrial fib (PAF/Flutter), arrhythmia (AVNRT; Failed ablation attempt for AFlutter), CAD, diabetes, heart failure (Chronic HFrEF), hy pertension, other (Ischemic CMP, EF 30-35% in 03/05; Gastric ulcer; Hep C) Past Surgical History: CABG, PTCA, Other (s/p Bilateral AKA; ICD) Social history: denies: smoking, alcohol abuse Family history: denies: CAD Medications and Allergies Allergies Allergy/AdvReac Type Severity Reaction Status Date / Time No Known Allergies Allergy Verified 04/17/18 15:59 Active Meds: Active Medications Acetaminophen (Tylenol) 650 mg PO Q4H PRN PRN Reason: Pain MILD(1-3)/Fever >100.5/SCHULZ Last Admin: 04/18/18 02:39 Dose: 650 mg Documented by: Carvedilol (Coreg) 3.125 mg PO BID [facility] Dextrose (D50w (25gm) Syringe) 50 ml IV PRN PRN PRN Reason: Hypoglycemia Ceftriaxone Sodium (Rocephin/Ns 1 Gm/50 Ml) 1 gm in 50 mls @ 100 mls/hr IV Q24HR [facility]; Protocol Last Admin: 04/18/18 10:30 Dose: 100 mls/hr Documented by: Sodium Chloride (Nacl 0.9% 500 Ml) 500 mls @ 50 mls/hr IV DIRECT [facility] Sodium Chloride (Nacl 0.9% 500 Ml) 500 mls @ 0 mls/hr IV ONCE ONE Stop: 04/18/18 15:01 Last Admin: 04/18/18 14:17 Dose: 50 mls/hr Documented by: Sodium Chloride (Nacl 0.9% 500 Ml) 500 mls @ 0 mls/hr IV ONCE NR Stop: 04/18/18 23:59 Insulin Human Lispro (Humalog) 0 unit SUB-Q ACHS [facility]; Protocol Last Admin: 04/18/18 08:29 Dose: Not Given Documented by: Morphine Sulfate (Morphine) 2 mg IV Q4H PRN PRN Reason: Pain, Moderate (4-6) Last Admin: 04/18/18 09:20 Dose: 2 mg Documented by: Ondansetron HCl (Zofran) 4 mg IV Q8H PRN PRN Reason: Nausea And Vomiting Pantoprazole Sodium (Protonix) 40 mg IV BID [facility] Last Admin: 04/18/18 14:17 Dose: 40 mg Documented by: Potassium Chloride (K-Dur) 10 meq PO QDAY [facility] Sodium Chloride (Sodium Chloride Flush Syringe 10 Ml) 10 ml IV BID [facility] Last Admin: 04/18/18 09:23 Dose: 10 ml Documented by: Sodium Chloride (Sodium Chloride Flush Syringe 10 Ml) 10 ml IV PRN PRN PRN Reason: LINE FLUSH Torsemide (Demadex) 10 mg PO DAILY [facility] Last Admin: 04/18/18 14:17 Dose: 10 mg Documented by: medications reviewed/updated as required Review of Systems - Review of Systems All systems: negative Respiratory: shortness of breath Gastrointestinal: abdominal pain (epigastric), hematemesis, melena Exam - Constitutional Vital Signs: Temp Pulse Resp BP Pulse Ox 97.3 F L 87 18 122/60 100 04/18/18 12:15 04/18/18 12:15 04/18/18 12:15 04/18/18 12:15 04/18/18 07:38 General appearance: mild distress, cachectic - Respiratory Respiratory: bilateral: diminished - Cardiovascular Rhythm: regular Heart Sounds: Present: S1 & S2 - Gastrointestinal General gastrointestinal: Present: soft, tender (slight TTP in epigastric), non-distended, normal bowel sounds Rectal Exam: other (black stool in diaper upon exam) - Neurologic Neurological: alert and oriented x3 - Labs CBC & Chem 7: 04/18/18 13:09 04/18/18 13:09 Lab Results: Laboratory Results - last 24 hr 04/17/18 04/17/18 04/17/18 16:52 16:52 16:52 WBC 5.7 RBC 1.85 L Hgb 5.3 L* Hct 15.9 L* MCV 86 MCH 29 MCHC 34 RDW 19.7 H Plt Count 162 Lymph % (Auto) 20.1 [place] % (Auto) 5.7 Eos % (Auto) 0.7 Baso % (Auto) 0.5 Lymph # 1.1 L [place] # 0.3 Eos # 0.0 Baso # 0.0 Seg Neutrophils % 73.0 H Seg Neutrophils # 4.1 PT 59.6 H INR 6.93 H* APTT 69.9 H* D-Dimer 613.63 H Sodium 150 H Potassium 2.9 L* Chloride 111.2 H Carbon Dioxide 25 Anion Gap 17 BUN 47 H Creatinine 1.3 Estimated GFR > 60 BUN/Creatinine Ratio 36 Glucose 119 H POC Glucose Calcium 8.2 L Magnesium Total Bilirubin 0.60 AST 20 ALT 10 Alkaline Phosphatase 82 Total Creatine Kinase 35 L CK-MB (CK-2) 2.0 CK-MB (CK-2) Rel Index 5.7 H Troponin T 0.084 H NT-Pro-B Natriuret Pep 3276 H Total Protein 6.8 Albumin 3.0 L Albumin/Globulin Ratio 0.8 Triglycerides 69 Cholesterol 89 LDL Cholesterol Direct 46 L HDL Cholesterol 35 L Cholesterol/HDL Ratio 2.54 TSH Free T4 Urine Color Urine Turbidity Urine pH Ur Specific [place] Urine Protein Urine Glucose (UA) Urine Ketones Urine Blood Urine Nitrite Urine Bilirubin Urine Urobilinogen Ur Leukocyte Esterase Urine WBC (Auto) Urine RBC (Auto) U Epithel Cells (Auto) Urine Bacteria (Auto) Blood Type Antibody Screen Crossmatch 04/17/18 04/17/18 04/17/18 16:52 16:52 16:52 WBC RBC Hgb Hct MCV MCH MCHC RDW Plt Count Lymph % (Auto) [place] % (Auto) Eos % (Auto) Baso % (Auto) Lymph # [place] # Eos # Baso # Seg Neutrophils % Seg Neutrophils # PT INR APTT D-Dimer Sodium Potassium Chloride Carbon Dioxide Anion Gap BUN Creatinine Estimated GFR BUN/Creatinine Ratio Glucose POC Glucose Calcium Magnesium 1.40 L Total Bilirubin AST ALT Alkaline Phosphatase Total Creatine Kinase CK-MB (CK-2) CK-MB (CK-2) Rel Index Troponin T NT-Pro-B Natriuret Pep Total Protein Albumin Albumin/Globulin Ratio Triglycerides Cholesterol LDL Cholesterol Direct HDL Cholesterol Cholesterol/HDL Ratio TSH 1.390 Free T4 1.51 H Urine Color Urine Turbidity Urine pH Ur Specific [place] Urine Protein Urine Glucose (UA) Urine Ketones Urine Blood Urine Nitrite Urine Bilirubin Urine Urobilinogen Ur Leukocyte Esterase Urine WBC (Auto) Urine RBC (Auto) U Epithel Cells (Auto) Urine Bacteria (Auto) Blood Type A POSITIVE Antibody Screen Negative Crossmatch See Detail 04/17/18 04/17/18 04/17/18 17:34 23:08 23:08 WBC RBC Hgb Hct MCV MCH MCHC RDW Plt Count Lymph % (Auto) [place] % (Auto) Eos % (Auto) Baso % (Auto) Lymph # [place] # Eos # Baso # Seg Neutrophils % Seg Neutrophils # PT INR APTT D-Dimer Sodium Potassium Chloride Carbon Dioxide Anion Gap BUN Creatinine Estimated GFR BUN/Creatinine Ratio Glucose POC Glucose Calcium Magnesium Total Bilirubin AST ALT Alkaline Phosphatase Total Creatine Kinase 39 L CK-MB (CK-2) 2.0 CK-MB (CK-2) Rel Index 5.1 H Troponin T 0.065 H D NT-Pro-B Natriuret Pep Total Protein Albumin Albumin/Globulin Ratio Triglycerides Cholesterol LDL Cholesterol Direct HDL Cholesterol Cholesterol/HDL Ratio TSH Free T4 Urine Color Yellow Urine Turbidity Clear Urine pH 5.0 Ur Specific [place] 1.009 Urine Protein <15 mg/dl Urine Glucose (UA) Neg Urine Ketones Neg Urine Blood Neg Urine Nitrite Pos Urine Bilirubin Neg Urine Urobilinogen 2.0 Ur Leukocyte Esterase Mod Urine WBC (Auto) 101.0 H Urine RBC (Auto) 1.0 U Epithel Cells (Auto) 1.0 Urine Bacteria (Auto) 1+ Blood Type Antibody Screen Crossmatch 04/18/18 04/18/18 04/18/18 06:31 10:41 13:09 WBC 10.5 RBC 1.99 L Hgb 5.9 L* Hct 17.5 L* MCV 88 MCH 30 MCHC 34 RDW 16.1 H Plt Count 109 L Lymph % (Auto) 18.5 [place] % (Auto) 5.3 Eos % (Auto) 0.4 Baso % (Auto) 0.4 Lymph # 1.9 [place] # 0.6 Eos # 0.0 Baso # 0.0 Seg Neutrophils % 75.4 H Seg Neutrophils # 7.9 H PT INR APTT D-Dimer Sodium Potassium Chloride Carbon Dioxide Anion Gap BUN Creatinine Estimated GFR BUN/Creatinine Ratio Glucose POC Glucose 146 H 134 H Calcium Magnesium Total Bilirubin AST ALT Alkaline Phosphatase Total Creatine Kinase CK-MB (CK-2) CK-MB (CK-2) Rel Index Troponin T NT-Pro-B Natriuret Pep Total Protein Albumin Albumin/Globulin Ratio Triglycerides Cholesterol LDL Cholesterol Direct HDL Cholesterol Cholesterol/HDL Ratio TSH Free T4 Urine Color Urine Turbidity Urine pH Ur Specific [place] Urine Protein Urine Glucose (UA) Urine Ketones Urine Blood Urine Nitrite Urine Bilirubin Urine Urobilinogen Ur Leukocyte Esterase Urine WBC (Auto) Urine RBC (Auto) U Epithel Cells (Auto) Urine Bacteria (Auto) Blood Type Antibody Screen Crossmatch 04/18/18 04/18/18 04/18/18 13:09 13:09 13:09 WBC RBC Hgb Hct MCV MCH MCHC RDW Plt Count Lymph % (Auto) [place] % (Auto) Eos % (Auto) Baso % (Auto) Lymph # [place] # Eos # Baso # Seg Neutrophils % Seg Neutrophils # PT 74.2 H INR 9.23 H* APTT 60.4 H* D-Dimer Sodium 143 Potassium 4.2 D Chloride 109.0 H Carbon Dioxide 21 L Anion Gap 17 BUN 54 H Creatinine 1.3 Estimated GFR > 60 BUN/Creatinine Ratio 42 Glucose 133 H POC Glucose Calcium 7.7 L Magnesium Total Bilirubin AST ALT Alkaline Phosphatase Total Creatine Kinase CK-MB (CK-2) CK-MB (CK-2) Rel Index Troponin T 0.048 H D NT-Pro-B Natriuret Pep Total Protein Albumin Albumin/Globulin Ratio Triglycerides Cholesterol LDL Cholesterol Direct HDL Cholesterol Cholesterol/HDL Ratio TSH Free T4 Urine Color Urine Turbidity Urine pH Ur Specific [place] Urine Protein Urine Glucose (UA) Urine Ketones Urine Blood Urine Nitrite Urine Bilirubin Urine Urobilinogen Ur Leukocyte Esterase Urine WBC (Auto) Urine RBC (Auto) U Epithel Cells (Auto) Urine Bacteria (Auto) Blood Type Antibody Screen Crossmatch 04/18/18 13:09 WBC RBC Hgb Hct MCV MCH MCHC RDW Plt Count Lymph % (Auto) [place] % (Auto) Eos % (Auto) Baso % (Auto) Lymph # [place] # Eos # Baso # Seg Neutrophils % Seg Neutrophils # PT INR APTT D-Dimer Sodium Potassium Chloride Carbon Dioxide Anion Gap BUN Creatinine Estimated GFR BUN/Creatinine Ratio Glucose POC Glucose Calcium Magnesium 1.80 Total Bilirubin AST ALT Alkaline Phosphatase Total Creatine Kinase 34 L CK-MB (CK-2) 2.0 CK-MB (CK-2) Rel Index 5.8 H Troponin T NT-Pro-B Natriuret Pep Total Protein Albumin Albumin/Globulin Ratio Triglycerides Cholesterol LDL Cholesterol Direct HDL Cholesterol Cholesterol/HDL Ratio TSH Free T4 Urine Color Urine Turbidity Urine pH Ur Specific [place] Urine Protein Urine Glucose (UA) Urine Ketones Urine Blood Urine Nitrite Urine Bilirubin Urine Urobilinogen Ur Leukocyte Esterase Urine WBC (Auto) Urine RBC (Auto) U Epithel Cells (Auto) Urine Bacteria (Auto) Blood Type Antibody Screen Crossmatch Assessment and Plan 1.GI bleed 2.melena/hematemesis 3.severe anemia 4.supratherapeutic INR 5.CAD (s/p CABG) 6 heart failure (s/p AICD) 7.Afib 8.h/o PUD? 9.h/o hep C? -LFTs WNL, plt 106 (162 on admission) -INR 9.23- FFP and vit K pending -H/H 5.9/17.5 -transfusion PRBCs pending -continue to monitor H/H and transfuse as needed -hold blood thinning medications (coumadin on hold) -patient reports hematemesis x 1 episode today and melena x 2 weeks-black stool in diaper upon exam -etiology unclear- possible ulcer vs other (there is a possible hx of previous peptic ulcer and hep C per chart) -will tentively schedule for EGD in am pending is social INR <2 and medically stable -start on protonix drip -start on octreotide drip for reported hx of hep c -keep NPO -currently HD stable- monitor closely-low threshold to transfer to ICU -continue supportive care -will follow
[2018-04-18] MEDS ORDERED: NACL 0.9% 500 ML 500 ML IV ONE (15:00)
[2018-04-18] MEDS ORDERED: PROTONIX 80 MG in NACL 0.9% 100 ML IV SCH (16:00)
[2018-04-18] MEDS: SandoSTATIN 500 MCG in NACL 0.9% 100 ML IV SCH (16:09)
[2018-04-18] MEDS: PROTONIX IV SCH (22:16)
[2018-04-18] MEDS: COREG PO SCH (22:16)
[2018-04-19] MEDS: MORPHINE IV PRN ×3 (04:21→22:09)
[2018-04-19] MEDS ORDERED: LASIX IV ONE (06:30)
[2018-04-19] MEDS: HumaLOG SUB-Q SCH ×4 (08:06→22:07)
[2018-04-19] MEDS: SandoSTATIN 500 MCG in NACL 0.9% 100 ML IV SCH (08:07)
[2018-04-19 09:08] LABS: Basophils % (Auto) 0.4 % (0.0-1.8); Eosinophils % (Auto) 0.4 % (0.0-4.3); Hematocrit 20.9 % (35.5-45.6); Hemoglobin 7.3 gm/dl (11.8-15.2); Lymphocytes # (Auto) 2.1 K/mm3 (1.2-5.4); Lymphocytes % (Auto) 21.2 % (13.4-35.0); Mean Corpuscular HGB Conc 35 % (32-34); Mean Corpuscular Volume 88 fl (84-94); Monocytes # (Auto) 0.9 K/mm3 (0.0-0.8); Monocytes % (Auto) 8.7 % (0.0-7.3); Red Blood Count 2.37 M/mm3 (3.65-5.03); Red Cell Distribution Width 15.2 % (13.2-15.2)
[2018-04-19 09:11] LABS: Platelet Count 73 K/mm3 (140-440)
[2018-04-19 09:26] LABS: INR 2.16 (0.87-1.13)
[2018-04-19 09:32] LABS: Albumin 2.2 g/dL (3.9-5); Calcium 7.9 mg/dL (8.4-10.2)
[2018-04-19] MEDS: SODIUM CHLORIDE FLUSH SYRINGE 10 ML IV SCH ×2 (09:54→23:59)
[2018-04-19] MEDS: COREG PO SCH ×2 (09:54→22:10)
[2018-04-19] MEDS: PROTONIX IV SCH ×2 (09:54→22:06)
[2018-04-19] MEDS: DEMADEX PO SCH (10:00)
[2018-04-19] MEDS: K-DUR PO SCH (10:00)
[2018-04-19] MEDS: ROCEPHIN/NS 1 GM/50 ML 1 GM/50 ML BAG IV SCH (10:02)
--- NOTE | 2018-04-19 10:28 | Progress Note ---
Assessment and Plan Cont Guideline-Directed cardiac medications as tolerated. For EGD today. The patient has been seen in conjunction with Dr. Berry who agrees with the assessment and plan of care. - Patient Problems (1) Epistaxis Current Visit: Yes Status: Acute (2) Melena Current Visit: Yes Status: Acute (3) Severe anemia Current Visit: Yes Status: Acute (4) Supratherapeutic INR Current Visit: Yes Status: Acute (5) Acute on chronic HFrEF (heart failure with reduced ejection fraction) Current Visit: Yes Status: Acute (6) Ischemic cardiomyopathy Current Visit: Yes Status: Acute (7) CAD (coronary artery disease) Current Visit: Yes Status: Chronic Qualifiers: Coronary Disease-Associated Artery/Lesion type: [place] artery (8) Hx of CABG Current Visit: Yes Status: Chronic (9) AICD (automatic cardioverter/defibrillator) present Current Visit: Yes Status: Acute (10) PAF (paroxysmal atrial fibrillation) Current Visit: Yes Status: Chronic (11) H/O gastric ulcer Current Visit: Yes Status: Resolved (12) UTI (urinary tract infection) Current Visit: Yes Status: Acute (13) S/P AKA (above knee amputation) bilateral Current Visit: Yes Status: Acute (14) Diabetes mellitus Current Visit: Yes Status: Acute Subjective Date of service: 04/19/18 Principal diagnosis: GI bleed Interval history: pt resting in bed, no current cardiac complaints. NPO for EGD today. Objective Last Vital Signs Temp 97.9 F 04/19/18 08:52 Pulse 86 04/19/18 08:52 Resp 18 04/19/18 08:52 BP 146/60 04/19/18 08:52 Pulse Ox 100 04/19/18 08:52 - Physical Examination HEENT: Positive: EOMI, Normocephaly, Mucus Membranes Moist Neck: Positive: neck supple, trachea midline, JVD/HJR (elevated) Cardiac: Positive: Reg Rate and Rhythm, S1/S2 Lungs: Positive: Decreased Breath Sounds Neuro: Positive: Grossly Intact Abdomen: Positive: Soft, Active Bowel Sounds. Negative: Tender Skin: Positive: Clear. Negative: Rash Musculoskeletal: Normal Range of Motion Extremities: Present: Other (s/p bilateral AKA). Absent: edema - Labs and Meds Cardiac Enzymes 04/18/18 04/19/18 Range/Units 13:09 08:27 AST 18 (5-40) units/L CK-MB (CK-2) 2.0 (0.0-4.0) ng/mL Coagulation 04/18/18 04/19/18 Range/Units 13:09 08:27 PT 74.2 H 24.5 H (12.2-14.9) Sec. INR 9.23 H* 2.16 H (0.87-1.13) APTT 60.4 H* (24.2-36.6) Sec. CBC 04/18/18 04/19/18 Range/Units 13: 08:27 WBC 10.5 9.8 (4.5-11.0) K/mm3 RBC 1.99 L 2.37 L (3.65-5.03) M/mm3 Hgb 5.9 L* 7.3 L (11.8-15.2) gm/dl Hct 17.5 L* 20.9 L (35.5-45.6) % Plt Count 109 L 73 L (140-440) K/mm3 Lymph # 1.9 2.1 (1.2-5.4) K/mm3 [place] # 0.6 0.9 H (0.0-0.8) K/mm3 Eos # 0.0 0.0 (0.0-0.4) K/mm3 Baso # 0.0 0.0 (0.0-0.1) K/mm3 Comprehensive Metabolic Panel 04/18/18 04/19/18 Range/Units 13: 08:27 Sodium 143 143 (137-145) mmol/L Potassium 4.2 D 4.3 (3.6-5.0) mmol/L Chloride 109.0 H 109.9 H (98-107) mmol/L Carbon Dioxide 21 L 20 L (22-30) mmol/L BUN 54 H 62 H (9-20) mg/dL Creatinine 1.3 1.7 H (0.8-1.5) mg/dL Glucose 133 H 152 H (75-100) mg/dL Calcium 7.7 L 7.9 L (8.4-10.2) mg/dL AST 18 (5-40) units/L ALT 13 (7-56) units/L Alkaline Phosphatase 47 (35-129) units/L Total Protein 4.8 L D (6.3-8.2) g/dL Albumin 2.2 L (3.9-5) g/dL - Imaging and Cardiology EKG: image reviewed - EKG Sinus rhythms and dysrhythmias: sinus rhythm Repolarization changes or abnormalities: ST or T wave suggestive of ischemia
[2018-04-19] MEDS ORDERED: NACL 0.9% 500 ML 500 ML IV SCH ×2 (13:14→16:31)
--- NOTE | 2018-04-19 13:16 | Progress Note ---
Assessment and Plan Assessment and plan: Severe anemia due to acute blood loss. Epistaxis and possible GI loss hemoglobin now 7.3 after PRBC transfusions Coagulopathy . INR is now 2.1 after FFP and Vitamin K I discussed with Cardiology Hold Coumadin Acute GI bleed EGD revealed tear at GE junction Epistaxis due to coagulopathy. patient stated he was having bleeding with clots from nose Atrial fibrillation, Cooumadin on hold due to active bleeding CAD No chest pain Diabetes mellitus type 2. Fingerstick glucose Chronic systolic heart failure Depression UTI Started on ceftriaxone Full code status History Interval history: Epistaxis No chest pain Dark stools Hospitalist Physical - Physical exam Narrative exam: GEN: Not in acute distress, lying in bed, malnourished HEENT: Normocephalic, atraumatic, Neck: supple, No JVD Lungs: Clear to auscultation bilaterally, no wheeze Heart:S1 and S2 regular, no murmurs, rubs or gallop, Abd:soft, non tender, non distended, normal bowel sounds Ext: No edema, no clubbing or cyanosis Neuro: Awake,alert, oriented x 3, No focal neurological signs - Constitutional Vitals: Temp Pulse Resp BP Pulse Ox 97.6 F 96 H 20 115/49 100 04/19/18 11:40 04/19/18 11:41 04/19/18 11:41 04/19/18 11:41 04/19/18 11:41 General appearance: Present: no acute distress Results - Labs CBC & Chem 7: 04/20/18 09:52 04/20/18 09:58 Labs: Laboratory Last Values WBC 9.8 K/mm3 (4.5-11.0) 04/19/18 08:27 RBC 2.37 M/mm3 (3.65-5.03) L 04/19/18 08:27 Hgb 7.3 gm/dl (11.8-15.2) L 04/19/18 08:27 Hct 20.9 % (35.5-45.6) L 04/19/18 08:27 MCV 88 fl (84-94) 04/19/18 08:27 MCH 31 pg (28-32) 04/19/18 08:27 MCHC 35 % (32-34) H 04/19/18 08:27 RDW 15.2 % (13.2-15.2) 04/19/18 08:27 Plt Count 73 K/mm3 (140-440) L 04/19/18 08:27 Lymph % (Auto) 21.2 % (13.4-35.0) 04/19/18 08:27 [place] % (Auto) 8.7 % (0.0-7.3) H 04/19/18 08:27 Eos % (Auto) 0.4 % (0.0-4.3) 04/19/18 08:27 Baso % (Auto) 0.4 % (0.0-1.8) 04/19/18 08:27 Lymph # 2.1 K/mm3 (1.2-5.4) 04/19/18 08:27 [place] # 0.9 K/mm3 (0.0-0.8) H 04/19/18 08:27 Eos # 0.0 K/mm3 (0.0-0.4) 04/19/18 08:27 Baso # 0.0 K/mm3 (0.0-0.1) 04/19/18 08:27 Seg Neutrophils % 69.3 % (40.0-70.0) 04/19/18 08:27 Seg Neutrophils # 6.8 K/mm3 (1.8-7.7) 04/19/18 08:27 PT 24.5 Sec. (12.2-14.9) H 04/19/18 08:27 INR 2.16 (0.87-1.13) H 04/19/18 08:27 APTT 60.4 Sec. (24.2-36.6) H* 04/18/18 13:09 D-Dimer 613.63 ng/mlDDU (0-234) H 04/17/18 16:52 Sodium 143 mmol/L (137-145) 04/19/18 08:27 Potassium 4.3 mmol/L (3.6-5.0) 04/19/18 08:27 Chloride 109.9 mmol/L (98-107) H 04/19/18 08:27 Carbon Dioxide 20 mmol/L (22-30) L 04/19/18 08:27 Anion Gap 17 mmol/L 04/19/18 08:27 BUN 62 mg/dL (9-20) H 04/19/18 08:27 Creatinine 1.7 mg/dL (0.8-1.5) H 04/19/18 08:27 Estimated GFR 50 ml/min 04/19/18 08:27 BUN/Creatinine Ratio 36 % 04/19/18 08:27 Glucose 152 mg/dL (75-100) H 04/19/18 08:27 POC Glucose 166 (70-105) H 04/19/18 11:41 Calcium 7.9 mg/dL (8.4-10.2) L 04/19/18 08:27 Magnesium 1.80 mg/dL (1.7-2.3) 04/18/18 13:09 Total Bilirubin 0.70 mg/dL (0.1-1.2) 04/19/18 08:27 AST 18 units/L (5-40) 04/19/18 08:27 ALT 13 units/L (7-56) 04/19/18 08:27 Alkaline Phosphatase 47 units/L (35-129) 04/19/18 08:27 Total Creatine Kinase 34 units/L (55-170) L 04/18/18 13:09 CK-MB (CK-2) 2.0 ng/mL (0.0-4.0) 04/18/18 13:09 CK-MB (CK-2) Rel Index 5.8 (0-4) H 04/18/18 13:09 Troponin T 0.048 ng/mL (0.00-0.029) H D 04/18/18 13:09 NT-Pro-B Natriuret Pep 3276 pg/mL (0-900) H 04/17/18 16:52 Total Protein 4.8 g/dL (6.3-8.2) L D 04/19/18 08:27 Albumin 2.2 g/dL (3.9-5) L 04/19/18 08:27 Albumin/Globulin Ratio 0.8 % 04/19/18 08:27 Triglycerides 69 mg/dL (2-149) 04/17/18 16:52 Cholesterol 89 mg/dL (50-199) 04/17/18 16:52 LDL Cholesterol Direct 46 mg/dL (50-130) L 04/17/18 16:52 HDL Cholesterol 35 mg/dL (40-59) L 04/17/18 16:52 Cholesterol/HDL Ratio 2.54 % 04/17/18 16:52 TSH 1.390 mlU/mL (0.270-4.200) 04/17/18 16:52 Free T4 1.51 ng/dL (0.76-1.46) H 04/17/18 16:52 Urine Color Yellow (Yellow) 04/17/18 17:34 Urine Turbidity Clear (Clear) 04/17/18 17:34 Urine pH 5.0 (5.0-7.0) 04/17/18 17:34 Ur Specific [place] 1.009 (1.003-1.030) 04/17/18 17:34 Urine Protein <15 mg/dl mg/dL (Negative) 04/17/18 17:34 Urine Glucose (UA) Neg mg/dL (Negative) 04/17/18 17:34 Urine Ketones Neg mg/dL (Negative) 04/17/18 17:34 Urine Blood Neg (Negative) 04/17/18 17:34 Urine Nitrite Pos (Negative) 04/17/18 17:34 Urine Bilirubin Neg (Negative) 04/17/18 17:34 Urine Urobilinogen 2.0 mg/dL (<2.0) 04/17/18 17:34 Ur Leukocyte Esterase Mod (Negative) 04/17/18 17:34 Urine WBC (Auto) 101.0 /HPF (0.0-6.0) H 04/17/18 17:34 Urine RBC (Auto) 1.0 /HPF (0.0-6.0) 04/17/18 17:34 U Epithel Cells (Auto) 1.0 /HPF (0-13.0) 04/17/18 17:34 Urine Bacteria (Auto) 1+ /HPF (Negative) 04/17/18 17:34 Blood Type A POSITIVE 04/17/18 16:52 Antibody Screen Negative 04/17/18 16:52 Crossmatch See Detail 04/17/18 16:52 Nutrition/Malnutrition Assess - Dietary Evaluation Nutrition/Malnutrition Findings: Nutrition Notes Start: 04/18/18 13:01 Freq: Status: Active Protocol: Document 04/18/18 13:02 CT (Rec: 04/18/18 13:51 CT [id number]) Co-Sign 04/18/18 13:02 LP Nutrition Notes Need for Assessment generated from: Low BMI Initial or Follow up Assessment Current Diagnosis CKD(stage I-IV) Coronary Artery Disease Diabetes Hypertension Heart Failure Other Pertinent Diagnosis COPD Current Diet Clear Liquid Diet Labs/Tests Glucose: 134 K: 2.9 BUN: 47 Pertinent Medications Insulin Height 5 ft 7 in Weight 47.99 kg [place] Body Weight (kg) 67.27 BMI 16.5 Weight Status Underweight Subjective/Other Information RD screen for low BMI. Pt soiled himself at time of visit. Unable to complete interview. Burn Absent Trauma Absent #1 Nutrition Diagnosis Inadequate energy intake Etiology increased energy requirements/ increased nutrient needs d/t prolonged catabolic illness. As Evidenced by Signs and Symptoms BMI 16.6 Is patient on ventilator? No Is Patient Ambulatory and/or Out of Bed No REE-([facility]-confined to bed) 1497.516 Kcal/Kg value to use for calculation 36 Approximate Energy Requirements Using 1728 kcal/Kg Additional Notes PRO: 58-67g PRO (1.2-1.4 g/kg) Fluid: 1 ml/kcal Nutrition Intervention Change Diet Order: Advance as medically feasible Add Supplement/Snack (indicate name/kcal Ensure Clear BID /protein ) Provides kCal: 480 Provides Protein (gm) 16 Goal #1 Diet Advancement Goal #2 Weight maintenance/gain Anticipated Discharge Needs: Consistent CHO/Renal Follow-Up By: 04/22/18 Additional Comments F/U: diet advancement, intakes
[2018-04-19] MEDS ORDERED: MORPHINE ONE (14:37)
[2018-04-19] MEDS: NACL 0.9% 1000 ML 1,000 ML IV SCH (14:40)
--- NOTE | 2018-04-19 14:51 | Anesthesia Consultation ---
Anesthesia Consult and Med Hx Date of service: 04/19/18 - Airway Anesthetic Teeth Evaluation: Edentulous ROM Head & Neck: Adequate Mental/Hyoid Distance: Adequate Mallampati Class: Class III Intubation Access Assessment: Probably Good - Pulmonary Exam CTA: Yes - Cardiac Exam Cardiac Exam: RRR - Pre-Operative Health Status ASA Pre-Surgery Classification: ASA3 Proposed Anesthetic Plan: MAC - Pulmonary Hx Smoking: Yes (current smoker 1 pack in a 3days) Hx Asthma: Yes COPD: Yes Hx Pneumonia: No Hx Sleep Apnea: No (high score JAVON) - Cardiovascular System Hx Hypertension: Yes Hx Coronary Artery Disease: Yes Hx Heart Attack/AMI: Yes (3yrs ago) Hx Angina: No Hx Percutaneous Transluminal Coronary Angioplasty (PTCA): No Hx Pacemaker: Yes Hx Internal Defibrillator: No Hx Valvular Heart Disease: No Hx Heart Murmur: No Hx Peripheral Vascular Disease: Yes - Central Nervous System Hx Seizures: No CVA: No Hx Psychiatric Problems: No - Gastrointestinal Hx Ulcer: No - Endocrine Hx Renal Disease: No Hx End Stage Renal Disease: No - Other Systems Hx Alcohol Use: Yes Hx Substance Use: Yes
[2018-04-19] MEDS ORDERED: DIPRIVAN 10 MG/ML IV ONE (15:27)
[2018-04-19] MEDS ORDERED: NACL 0.9% 100 ML ONE (15:48)
[2018-04-19] MEDS ORDERED: ADRENALIN IV ONE (15:49)
--- NOTE | 2018-04-19 15:57 | Post Operative Note ---
Pre-op diagnosis: gi bleed Post-op diagnosis: same Findings: EGD: hiatal hernia - tear extending g-e junction with active slow bleeding from visible vessel gastric cardia lesser curvature side, epi 1:10k (6cc)/heater probe applied w/ good results -bood gastric fundus - negative other Procedure: EGD Anesthesia: MAC Surgeon: FARAZ SALMERON Estimated blood loss: none Pathology: list Specimen disposition: to lab Condition: stable Disposition: floor
[2018-04-19] MEDS ORDERED: NACL 0.9% 1000 ML 1,000 ML ONE (16:17)
[2018-04-19] MEDS ORDERED: WATER FOR IRRIG STERILE ONE (16:20)
[2018-04-19] MEDS ORDERED: SUBLIMAZE ONE (16:21)
[2018-04-19] MEDS ORDERED: AMIDATE IV ONE (16:21)
[2018-04-19] MEDS ORDERED: NACL 0.9% 500 ML 500 ML IV ONE (17:56)
[2018-04-19 18:06] LABS: Hematocrit 25.7 % (35.5-45.6); Hemoglobin 8.5 gm/dl (11.8-15.2)
[2018-04-19 18:26] LABS: INR 2.72 (0.87-1.13)
--- NOTE | 2018-04-19 18:32 | Operative Report ---
PROCEDURE: EGD with bleeding therapy. INDICATIONS: 1. Anemia. 2. GI bleed. MEDICATIONS: Propofol per PLANETARIUM TECHNICIAN. COMPLICATIONS: None. DESCRIPTION OF PROCEDURE: The patient brought to procedure suite. The patient had the procedure discussed with him at length. All risks, complications, and benefits discussed, which the patient signed for the procedure to be performed. The patient was placed in left lateral decubitus position. Mouth block was placed in the patient's oral cavity. After adequate sedation medication as above, endoscope was introduced into the mouth and brought to level of the second portion of duodenum. Retroflexion view performed. The patient's vital signs remained stable throughout the procedure. FINDINGS: There was noted to be a medium hiatal hernia at the GE junction going towards the lesser curvature. There was noted to be a tear. At distal end of this, medium size tear, there was noted to be actively slow bleeding visible vessel. There was noted to be fresh blood in the gastric fundus. The stomach otherwise appeared to be normal. Duodenum appeared to be normal. Retroflexion view performed in the stomach showed no other pathology other than noted above. Especially using standard technique, epinephrine 1:10,000 dilution total of 6 mL applied with hemostasis. A Gold Probe was then applied to the visible vessel with good result. Postprocedure, the patient was satisfactory. The patient tolerated the procedure well. No complications during the procedure. IMPRESSION: 1. Hiatal hernia. 2. Tear at the GE junction with active bleeding from a visible vessel, the gastric cardia on the lesser curvature side. 3. Bleeding therapy as noted above. 4. Some fresh blood noted in the gastric fundus. 5. Otherwise, benign EGD. RECOMMENDATIONS: 1. Follow hematocrit and transfuse as needed. 2. PPI IV b.i.d. 3. Can start clear liquids later today if no further signs of bleeding. 4. We will follow up in a.m. JOB# [id number] [facility]
--- NOTE | 2018-04-19 18:47 | Post Anesthesia Evaluation ---
- Post Anesthesia Evaluation Patient Participated: Yes Airway Patent: Yes Stable Respiratory Function: Yes Temp > 96.8F: Yes Pain Manageable: Yes Adequeate Hydration: Yes Anesthesia Complications: No Other Comments: Patient was taken to PACU after EGD. Immediately upon arrival patient coughed up a large volume of partially clotted blood. There did not seem to be active bleeding but patient was taken to OR where he was induced, intubated and scoped by Dr Castrejon. There was no active bleeding per proceeduralist. After stable recovery period he was discharged back to [facility].
[2018-04-20] MEDS: NACL 0.9% 1000 ML 1,000 ML IV SCH (01:51)
[2018-04-20] MEDS: MORPHINE IV PRN ×4 (01:52→20:40)
[2018-04-20] MEDS: HumaLOG SUB-Q SCH ×4 (08:58→21:20)
[2018-04-20 10:29] LABS: Hematocrit 22.3 % (35.5-45.6); Hemoglobin 7.4 gm/dl (11.8-15.2); Mean Corpuscular HGB Conc 33 % (32-34); Mean Corpuscular Volume 92 fl (84-94); Red Blood Count 2.42 M/mm3 (3.65-5.03); Red Cell Distribution Width 15.3 % (13.2-15.2)
[2018-04-20 10:30] LABS: Platelet Count 57 K/mm3 (140-440)
[2018-04-20 10:37] LABS: INR 1.68 (0.87-1.13)
--- NOTE | 2018-04-20 10:38 | Progress Note ---
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 Continue present management. Subjective Date of service: 04/20/18 Principal diagnosis: GI bleed Interval history: patient is comfortable,no cardiac complaints.telemetry showing S.R. Objective Vital Signs Temp Pulse Resp BP Pulse Ox 04/20/18 08:21 97.8 F 78 14 133/52 100 04/20/18 06:38 18 04/20/18 06:08 18 04/20/18 04:52 97.3 F L 70 16 136/54 100 04/20/18 02:22 18 04/20/18 01:52 18 04/20/18 01:22 98.1 F 80 18 140/64 100 04/20/18 01:00 98.1 F 82 18 148/72 100 04/20/18 00:30 98 F 78 18 150/68 100 04/20/18 00:29 98.0 F 78 18 150/68 100 04/20/18 00:02 97.4 F L 18 153/72 04/20/18 00:00 97.4 F L 80 18 153/72 100 04/19/18 23:45 97.3 F L 78 18 141/58 100 04/19/18 23:07 97.4 F L 86 20 143/65 100 04/19/18 22:10 91 H 170/85 04/19/18 19:23 97.5 F L 91 H 16 170/85 100 04/19/18 19:00 98.8 F 91 H 14 165/80 100 04/19/18 18:30 93 H 16 161/75 100 04/19/18 18:15 88 14 156/71 100 04/19/18 18:00 97.1 F L 90 14 163/83 100 04/19/18 17:45 90 14 168/82 100 04/19/18 17:40 90 16 164/85 100 04/19/18 17:35 91 H 16 165/85 100 04/19/18 17:30 91 H 18 158/82 100 04/19/18 17:24 98.4 F 91 H 18 157/81 100 04/19/18 14:48 97.5 F L 95 H 15 148/59 100 04/19/18 14:27 97.5 F L 95 H 15 148/59 100 04/19/18 11:41 96 H 20 115/49 100 04/19/18 11:40 97.6 F - Physical Examination HEENT: Positive: EOMI, Normocephaly, Mucus Membranes Moist Neck: Positive: neck supple, trachea midline, JVD/HJR (elevated) Cardiac: Positive: Reg Rate and Rhythm Neuro: Positive: Grossly Intact Abdomen: Positive: Soft, Active Bowel Sounds. Negative: Tender Skin: Positive: Clear. Negative: Rash Musculoskeletal: Normal Range of Motion Extremities: Present: Other (s/p bilateral AKA). Absent: edema - Labs and Meds Coagulation 04/19/18 Range/Units 17:53 PT 29.2 H (12.2-14.9) Sec. INR 2.72 H (0.87-1.13) CBC 04/19/18 04/20/18 Range/Units 17:53 09:52 WBC 8.7 (4.5-11.0) K/mm3 RBC 2.42 L (3.65-5.03) M/mm3 Hgb 8.5 L 7.4 L (11.8-15.2) gm/dl Hct 25.7 L 22.3 L (35.5-45.6) % Plt Count 57 L (140-440) K/mm3 - Imaging and Cardiology EKG: image reviewed - EKG Sinus rhythms and dysrhythmias: sinus rhythm Repolarization changes or abnormalities: ST or T wave suggestive of ischemia
[2018-04-20 10:40] LABS: Albumin 2.5 g/dL (3.9-5); Calcium 7.4 mg/dL (8.4-10.2)
[2018-04-20] MEDS ORDERED: LASIX IV ONE (10:46)
[2018-04-20] MEDS: PROTONIX IV SCH ×2 (10:48→21:19)
[2018-04-20] MEDS: ROCEPHIN/NS 1 GM/50 ML 1 GM/50 ML BAG IV SCH (10:48)
[2018-04-20] MEDS: K-DUR PO SCH (10:49)
[2018-04-20] MEDS: DEMADEX PO SCH (10:49)
[2018-04-20] MEDS: SODIUM CHLORIDE FLUSH SYRINGE 10 ML IV SCH ×2 (10:58→21:19)
[2018-04-20] MEDS: COREG PO SCH ×2 (10:58→21:19)
--- NOTE | 2018-04-20 11:37 | Consultation ---
History of Present Illness - Reason for Consult Consult date: 04/20/18 acute renal failure Requesting physician: SEE DIALLO - History of Present Illness 62-year-old man with a history of hypertension, coronary artery disease, CHF, diabetes, chronic kidney disease, depression, asthma, COPD, A. fib on Coumadin comes emergency room with complaints of nosebleed yesterday 2 days, he had multiple episodes. His serum creatinine was noted to be 1.3 on admission. H owever it bumped up to 1.7 and therefore this consultation. He was also found to be severely anemic with a hemoglobin of 5.3. He had an EGD done which showed active bleeding from gastroesophageal junction which was injected with epinephrine with good results. He has also received packed RBC transfusion as well as fresh frozen plasma. He does have a history of chronic atrial fibrillation and is on anticoagulation. Patient is a poor historian unable to get detailed information from him. Patie nt denies knowledge of renal dysfunction. He denies any nonsteroidal intake. Denies any difficulty with urination. 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; Gastric ulcer; Hep C) Past Surgical History: CABG, PTCA, Other (s/p Bilateral AKA; ICD) Social history: denies: smoking, alcohol abuse Family history: denies: CAD Medications and Allergies Allergies Allergy/AdvReac Type Severity Reaction Status Date / Time No Known Allergies Allergy Verified 04/17/18 15:59 Active Meds: Active Medications Acetaminophen (Tylenol) 650 mg PO Q4H PRN PRN Reason: Pain MILD(1-3)/Fever >100.5/SCHULZ Last Admin: 04/18/18 02:39 Dose: 650 mg Documented by: Carvedilol (Coreg) 3.125 mg PO BID [facility] Last Admin: 04/20/18 10:58 Dose: 3.125 mg Documented by: Dextrose (D50w (25gm) Syringe) 50 ml IV PRN PRN PRN Reason: Hypoglycemia Ceftriaxone Sodium (Rocephin/Ns 1 Gm/50 Ml) 1 gm in 50 mls @ 100 mls/hr IV Q24HR [facility]; Protocol Last Admin: 04/20/18 10:48 Dose: 100 mls/hr Documented by: Sodium Chloride (Nacl 0.9% 1000 Ml) 1,000 mls @ 50 mls/hr IV DIRECT [facility] Last Admin: 04/20/18 01:51 Dose: 50 mls/hr Documented by: Insulin Human Lispro (Humalog) 0 unit SUB-Q ACHS [facility]; Protocol Last Admin: 04/20/18 08:58 Dose: Not Given Documented by: Morphine Sulfate (Morphine) 2 mg IV Q4H PRN PRN Reason: Pain, Moderate (4-6) Last Admin: 04/20/18 06:08 Dose: 2 mg Documented by: Ondansetron HCl (Zofran) 4 mg IV Q8H PRN PRN Reason: Nausea And Vomiting Pantoprazole Sodium (Protonix) 40 mg IV BID [facility] Last Admin: 04/20/18 10:48 Dose: 40 mg Documented by: Potassium Chloride (K-Dur) 10 meq PO QDAY [facility] Last Admin: 04/20/18 10:49 Dose: 10 meq Documented by: Sodium Chloride (Sodium Chloride Flush Syringe 10 Ml) 10 ml IV BID [facility] Last Admin: 04/20/18 10:58 Dose: 10 ml Documented by: Sodium Chloride (Sodium Chloride Flush Syringe 10 Ml) 10 ml IV PRN PRN PRN Reason: LINE FLUSH Torsemide (Demadex) 10 mg PO DAILY [facility] Last Admin: 04/20/18 10:49 Dose: 10 mg Documented by: Review of Systems All systems: negative (negative except as noted above) Exam - Vital Signs Vital signs: Vital Signs Temp Pulse Resp BP Pulse Ox 98.5 F 83 17 131/40 97 04/17/18 15:12 04/17/18 15:12 04/17/18 15:12 04/17/18 15:12 04/17/18 15:12 - General Appearance General appearance: well-developed, well-nourished, appears stated age EENT: PERRL, mucous membranes moist Neck: Present: neck supple, trachea midline. Absent: JVD/HJR, Masses Respiratory: Clear to Ascultation Heart: irregularly irregular, normal heart rate, S1S2, no murmurs Gastrointestinal: Present: normal, normoactive bowel sounds Integumentary: other (bilateral above-knee amputation) Results - Lab Results 04/20/18 09:52 04/20/18 09:58 Most recent lab results Calcium 7.4 mg/dL (8.4-10.2) L 04/20/18 09:58 Magnesium 1.80 mg/dL (1.7-2.3) 04/18/18 13:09 Assessment and Plan Impression * Acute renal failure * GI bleed * Hypertension * Coronary artery disease. Status post bypass surgery * Chronic atrial fibrillation * Cardiomyopathy. Ejection fraction of 30-35% * Hepatitis C * History of congestive heart failure Recommendations * Patient's serum creatinine was 1.3 on admission. Unclear if he has underlying chronic kidney disease. * Bump in creatinine most likely secondary to GI bleed. * Check a UA as well as a fractional excretion of sodium * Renal ultrasound to assess kidney size and echogenicity and to rule out obstruction * Hold diuretics for the next 24 hours and monitor his fluid status and renal function * Avoid nephrotoxins * The patient has an active urine sediment, he will need additional workup * Monitor fluid status and electrolytes closely * Thank you very much for the consultation. Shall follow her along with you
[2018-04-20] MEDS ORDERED: NACL 0.9% 500 ML 500 ML IV ONE ×2 (12:01→13:42)
--- NOTE | 2018-04-20 13:43 | Progress Note ---
Assessment and Plan 1. GI bleed - due to Aimee-Rivera tear based on EGD x 2 yesterday. Treated the first time for active bleed. Pt also compromised by elevated INR and low platelets. Currently hemodynamically stable. No clear evidence of ongoing bleed. - discussed with Dr. Veras - would give plt to keep count > 60K - monitor INR and keep < 1.6 - monitor H/H and transfuse as needed - CTA contraindicated by kidneys - if evidence of ongoing bleed, will repeat EGD. Subjective Date of service: 04/20/18 Principal diagnosis: GI bleed Interval history: Pt complains of liquid black diarrhea frequently, into his diaper. No frequent changes per RN. Otherwise, no abd pain, N/V. Objective - Constitutional Vitals: Vital Signs - 12hr 04/20/18 04/20/18 04/20/18 01:52 02:22 04:52 Temperature 97.3 F L Pulse Rate 70 Respiratory 18 18 16 Rate Blood Pressure 136/54 O2 Sat by Pulse 100 Oximetry 04/20/18 04/20/18 04/20/18 06:08 06:38 08:21 Temperature 97.8 F Pulse Rate 78 Respiratory 18 18 14 Rate Blood Pressure 133/52 O2 Sat by Pulse 100 Oximetry 04/20/18 11:52 Temperature Pulse Rate 69 Respiratory Rate Blood Pressure 128/47 O2 Sat by Pulse 100 Oximetry General appearance: Present: no acute distress - EENT Eyes: PERRL, EOM intact ENT: hearing intact - Respiratory Respiratory effort: normal Extremity abnormal: other (s/p bilat AKA.) - Gastrointestinal General gastrointestinal: Present: soft, non-tender - Labs CBC & Chem 7: 04/20/18 09:52 04/20/18 09:58 Labs: Abnormal lab results 04/17/18 04/19/18 04/19/18 Range/Units 16:52 17:53 17:53 RBC (3.65-5.03) M/mm3 Hgb 8.5 L (11.8-15.2) gm/dl Hct 25.7 L (35.5-45.6) % RDW (13.2-15.2) % Plt Count (140-440) K/mm3 PT 29.2 H (12.2-14.9) Sec. INR 2.72 H (0.87-1.13) Potassium (3.6-5.0) mmol/L Chloride (98-107) mmol/L Carbon Dioxide (22-30) mmol/L BUN (9-20) mg/dL Creatinine (0.8-1.5) mg/dL Glucose (75-100) mg/dL POC Glucose (70-105) Calcium (8.4-10.2) mg/dL NT-Pro-B Natriuret Pep (0-900) pg/mL Total Protein (6.3-8.2) g/dL Albumin (3.9-5) g/dL Crossmatch See Detail 04/19/18 04/20/18 04/20/18 Range/Units 21:42 06:13 09:52 RBC 2.42 L (3.65-5.03) M/mm3 Hgb 7.4 L (11.8-15.2) gm/dl Hct 22.3 L (35.5-45.6) % RDW 15.3 H (13.2-15.2) % Plt Count 57 L (140-440) K/mm3 PT (12.2-14.9) Sec. INR (0.87-1.13) Potassium (3.6-5.0) mmol/L Chloride (98-107) mmol/L Carbon Dioxide (22-30) mmol/L BUN (9-20) mg/dL Creatinine (0.8-1.5) mg/dL Glucose (75-100) mg/dL POC Glucose 255 H 117 H (70-105) Calcium (8.4-10.2) mg/dL NT-Pro-B Natriuret Pep (0-900) pg/mL Total Protein (6.3-8.2) g/dL Albumin (3.9-5) g/dL Crossmatch 04/20/18 04/20/18 04/20/18 Range/Units 09:58 09:58 09:58 RBC (3.65-5.03) M/mm3 Hgb (11.8-15.2) gm/dl Hct (35.5-45.6) % RDW (13.2-15.2) % Plt Count (140-440) K/mm3 PT 20.2 H (12.2-14.9) Sec. INR 1.68 H (0.87-1.13) Potassium 3.5 L (3.6-5.0) mmol/L Chloride 110.0 H (98-107) mmol/L Carbon Dioxide 18 L (22-30) mmol/L BUN 56 H (9-20) mg/dL Creatinine 1.7 H (0.8-1.5) mg/dL Glucose 135 H (75-100) mg/dL POC Glucose (70-105) Calcium 7.4 L (8.4-10.2) mg/dL NT-Pro-B Natriuret Pep 3465 H (0-900) pg/mL Total Protein 4.7 L (6.3-8.2) g/dL Albumin 2.5 L (3.9-5) g/dL Crossmatch 04/20/18 Range/Units 12:26 RBC (3.65-5.03) M/mm3 Hgb (11.8-15.2) gm/dl Hct (35.5-45.6) % RDW (13.2-15.2) % Plt Count (140-440) K/mm3 PT (12.2-14.9) Sec. INR (0.87-1.13) Potassium (3.6-5.0) mmol/L Chloride (98-107) mmol/L Carbon Dioxide (22-30) mmol/L BUN (9-20) mg/dL Creatinine (0.8-1.5) mg/dL Glucose (75-100) mg/dL POC Glucose 157 H (70-105) Calcium (8.4-10.2) mg/dL NT-Pro-B Natriuret Pep (0-900) pg/mL Total Protein (6.3-8.2) g/dL Albumin (3.9-5) g/dL Crossmatch Medications & Allergies - Medications Allergies/Adverse Reactions: Allergies No Known Allergies Allergy (Verified 04/17/18 15:59) Active Medications: Generic Name Dose Route Start Last Admin Trade Name Freq PRN Reason Stop Dose Admin Acetaminophen 650 mg 04/17/18 22:36 04/18/18 02:39 Tylenol PO 650 mg Q4H PRN Administration Pain MILD(1-3)/Fever >100.5/SCHULZ Carvedilol 3.125 mg 04/18/18 22:00 04/20/18 10:58 Coreg PO 3.125 mg BID [facility] Administration Dextrose 50 ml 04/17/18 22:36 D50w (25gm) Syringe IV PRN PRN Hypoglycemia Ceftriaxone Sodium 1 gm in 50 mls @ 100 mls/hr 04/18/18 10:00 04/20/18 10:48 Rocephin/Ns 1 Gm/50 Ml IV 100 mls/hr Q24HR [facility] Administration Protocol Sodium Chloride 1,000 mls @ 50 mls/hr 04/19/18 12:00 04/20/18 01:51 Nacl 0.9% 1000 Ml IV 50 mls/hr DIRECT [facility] Administration Insulin Human Lispro 0 unit 04/18/18 07:30 04/20/18 08:58 Humalog SUB-Q Not Given ACHS [facility] Protocol Morphine Sulfate 2 mg 04/18/18 08:36 04/20/18 06:08 Morphine IV 2 mg Q4H PRN Administration Pain, Moderate (4-6) Ondansetron HCl 4 mg 04/17/18 22:36 Zofran IV Q8H PRN Nausea And Vomiting Pantoprazole Sodium 40 mg 04/18/18 22:00 04/20/18 10:48 Protonix IV 40 mg BID [facility] Administration Potassium Chloride 10 meq 04/19/18 10:00 04/20/18 10:49 K-Dur PO 10 meq QDAY [facility] Administration Sodium Chloride 10 ml 04/18/18 10:00 04/20/18 10:58 Sodium Chloride Flush Syringe 10 Ml IV 10 ml BID [facility] Administration Sodium Chloride 10 ml 04/17/18 22:36 Sodium Chloride Flush Syringe 10 Ml IV PRN PRN LINE FLUSH
--- NOTE | 2018-04-20 13:43 | Progress Note ---
Assessment and Plan Assessment and plan: Severe anemia due to acute blood loss. Epistaxis and possible GI loss hemoglobin now 7.4 today after PRBC transfusions Will transfuse 2 units PRBC more discussed with GI Physician Coagulopathy . INR is now 1.68 after FFP and Vitamin K I discussed with Cardiology Hold Coumadin Acute GI bleed EGD revealed tear at GE junction s/p cautery Epistaxis due to coagulopathy. patient stated he was having bleeding with clots from nose Atrial fibrillation, Cooumadin on hold due to active bleeding Thrombocytopenia. Transfuse 1 unit CAD No chest pain Diabetes mellitus type 2. Fingerstick glucose Chronic systolic heart failure. Give Lasix iv Depression UTI Started on ceftriaxone Full code status History Interval history: Black stools EGD yesterday Hospitalist Physical - Physical exam Narrative exam: GEN: Not in acute distress, lying in bed, malnourished HEENT: Normocephalic, atraumatic, Neck: supple, No JVD Lungs: Clear to auscultation bilaterally, no wheeze Heart:S1 and S2 regular, no murmurs, rubs or gallop, Abd:soft, non tender, non distended, normal bowel sounds Ext: Bilateral AKA, no cyanosis Neuro: Awake,alert, oriented x 3, No focal neurological signs - Constitutional Vitals: Temp Pulse Resp BP Pulse Ox 97.8 F 69 14 128/47 100 04/20/18 08:21 04/20/18 11:52 04/20/18 08:21 04/20/18 11:52 04/20/18 11:52 General appearance: Present: no acute distress Results - Labs CBC & Chem 7: 04/21/18 06:19 04/21/18 06:19 Labs: Laboratory Last Values WBC 8.7 K/mm3 (4.5-11.0) 04/20/18 09:52 RBC 2.42 M/mm3 (3.65-5.03) L 04/20/18 09:52 Hgb 7.4 gm/dl (11.8-15.2) L 04/20/18 09:52 Hct 22.3 % (35.5-45.6) L 04/20/18 09:52 MCV 92 fl (84-94) 04/20/18 09:52 MCH 31 pg (28-32) 04/20/18 09:52 MCHC 33 % (32-34) 04/20/18 09:52 RDW 15.3 % (13.2-15.2) H 04/20/18 09:52 Plt Count 57 K/mm3 (140-440) L 04/20/18 09:52 Lymph % (Auto) 21.2 % (13.4-35.0) 04/19/18 08:27 [place] % (Auto) 8.7 % (0.0-7.3) H 04/19/18 08:27 Eos % (Auto) 0.4 % (0.0-4.3) 04/19/18 08:27 Baso % (Auto) 0.4 % (0.0-1.8) 04/19/18 08:27 Lymph # 2.1 K/mm3 (1.2-5.4) 04/19/18 08:27 [place] # 0.9 K/mm3 (0.0-0.8) H 04/19/18 08:27 Eos # 0.0 K/mm3 (0.0-0.4) 04/19/18 08:27 Baso # 0.0 K/mm3 (0.0-0.1) 04/19/18 08:27 Seg Neutrophils % 69.3 % (40.0-70.0) 04/19/18 08:27 Seg Neutrophils # 6.8 K/mm3 (1.8-7.7) 04/19/18 08:27 PT 20.2 Sec. (12.2-14.9) H 04/20/18 09:58 INR 1.68 (0.87-1.13) H 04/20/18 09:58 APTT 60.4 Sec. (24.2-36.6) H* 04/18/18 13:09 D-Dimer 613.63 ng/mlDDU (0-234) H 04/17/18 16:52 Sodium 143 mmol/L (137-145) 04/20/18 09:58 Potassium 3.5 mmol/L (3.6-5.0) L 04/20/18 09:58 Chloride 110.0 mmol/L (98-107) H 04/20/18 09:58 Carbon Dioxide 18 mmol/L (22-30) L 04/20/18 09:58 Anion Gap 19 mmol/L 04/20/18 09:58 BUN 56 mg/dL (9-20) H 04/20/18 09:58 Creatinine 1.7 mg/dL (0.8-1.5) H 04/20/18 09:58 Estimated GFR 50 ml/min 04/20/18 09:58 BUN/Creatinine Ratio 33 % 04/20/18 09:58 Glucose 135 mg/dL (75-100) H 04/20/18 09:58 POC Glucose 157 (70-105) H 04/20/18 12:26 Calcium 7.4 mg/dL (8.4-10.2) L 04/20/18 09:58 Magnesium 1.80 mg/dL (1.7-2.3) 04/18/18 13:09 Total Bilirubin 0.60 mg/dL (0.1-1.2) 04/20/18 09:58 AST 20 units/L (5-40) 04/20/18 09:58 ALT 12 units/L (7-56) 04/20/18 09:58 Alkaline Phosphatase 46 units/L (35-129) 04/20/18 09:58 Total Creatine Kinase 34 units/L (55-170) L 04/18/18 13:09 CK-MB (CK-2) 2.0 ng/mL (0.0-4.0) 04/18/18 13:09 CK-MB (CK-2) Rel Index 5.8 (0-4) H 04/18/18 13:09 Troponin T 0.048 ng/mL (0.00-0.029) H D 04/18/18 13:09 NT-Pro-B Natriuret Pep 3465 pg/mL (0-900) H 04/20/18 09:58 Total Protein 4.7 g/dL (6.3-8.2) L 04/20/18 09:58 Albumin 2.5 g/dL (3.9-5) L 04/20/18 09:58 Albumin/Globulin Ratio 1.1 % 04/20/18 09:58 Triglycerides 69 mg/dL (2-149) 04/17/18 16:52 Cholesterol 89 mg/dL (50-199) 04/17/18 16:52 LDL Cholesterol Direct 46 mg/dL (50-130) L 04/17/18 16:52 HDL Cholesterol 35 mg/dL (40-59) L 04/17/18 16:52 Cholesterol/HDL Ratio 2.54 % 04/17/18 16:52 TSH 1.390 mlU/mL (0.270-4.200) 04/17/18 16:52 Free T4 1.51 ng/dL (0.76-1.46) H 04/17/18 16:52 Urine Color Yellow (Yellow) 04/17/18 17:34 Urine Turbidity Clear (Clear) 04/17/18 17:34 Urine pH 5.0 (5.0-7.0) 04/17/18 17:34 Ur Specific [place] 1.009 (1.003-1.030) 04/17/18 17:34 Urine Protein <15 mg/dl mg/dL (Negative) 04/17/18 17:34 Urine Glucose (UA) Neg mg/dL (Negative) 04/17/18 17:34 Urine Ketones Neg mg/dL (Negative) 04/17/18 17:34 Urine Blood Neg (Negative) 04/17/18 17:34 Urine Nitrite Pos (Negative) 04/17/18 17:34 Urine Bilirubin Neg (Negative) 04/17/18 17:34 Urine Urobilinogen 2.0 mg/dL (<2.0) 04/17/18 17:34 Ur Leukocyte Esterase Mod (Negative) 04/17/18 17:34 Urine WBC (Auto) 101.0 /HPF (0.0-6.0) H 04/17/18 17:34 Urine RBC (Auto) 1.0 /HPF (0.0-6.0) 04/17/18 17:34 U Epithel Cells (Auto) 1.0 /HPF (0-13.0) 04/17/18 17:34 Urine Bacteria (Auto) 1+ /HPF (Negative) 04/17/18 17:34 Blood Type A POSITIVE 04/17/18 16:52 Antibody Screen Negative 04/17/18 16:52 Crossmatch See Detail 04/17/18 16:52 Nutrition/Malnutrition Assess - Dietary Evaluation Nutrition/Malnutrition Findings: Nutrition Notes Start: 04/18/18 13:01 Freq: Status: Active Protocol: Document 04/18/18 13:02 CT (Rec: 04/18/18 13:51 CT [id number]) Co-Sign 04/18/18 13:02 LP Nutrition Notes Need for Assessment generated from: Low BMI Initial or Follow up Assessment Current Diagnosis CKD(stage I-IV) Coronary Artery Disease Diabetes Hypertension Heart Failure Other Pertinent Diagnosis COPD Current Diet Clear Liquid Diet Labs/Tests Glucose: 134 K: 2.9 BUN: 47 Pertinent Medications Insulin Height 5 ft 7 in Weight 47.99 kg [place] Body Weight (kg) 67.27 BMI 16.5 Weight Status Underweight Subjective/Other Information RD screen for low BMI. Pt soiled himself at time of visit. Unable to complete interview. Burn Absent Trauma Absent #1 Nutrition Diagnosis Inadequate energy intake Etiology increased energy requirements/ increased nutrient needs d/t prolonged catabolic illness. As Evidenced by Signs and Symptoms BMI 16.6 Is patient on ventilator? No Is Patient Ambulatory and/or Out of Bed No REE-([facility]-confined to bed) 1497.516 Kcal/Kg value to use for calculation 36 Approximate Energy Requirements Using 1728 kcal/Kg Additional Notes PRO: 58-67g PRO (1.2-1.4 g/kg) Fluid: 1 ml/kcal Nutrition Intervention Change Diet Order: Advance as medically feasible Add Supplement/Snack (indicate name/kcal Ensure Clear BID /protein ) Provides kCal: 480 Provides Protein (gm) 16 Goal #1 Diet Advancement Goal #2 Weight maintenance/gain Anticipated Discharge Needs: Consistent CHO/Renal Follow-Up By: 04/22/18 Additional Comments F/U: diet advancement, intakes
--- NOTE | 2018-04-20 20:16 | Ultrasound Report ---
FINAL REPORT EXAM: US RENAL BILAT HISTORY: ZULLY COMPARISON: None available. TECHNIQUE: Several real-time grayscale and color Doppler images were obtained. FINDINGS: Right kidney measures 11.1 x 4.9 x 6.8 centimeters. Cortex 1.5 centimeters. Left kidney measures 11.4 x 4.9 x 4.9 centimeters. Cortex 1.7 centimeters. No gross focal renal lesio n or hydronephrosis. There is vascular flow to the bilateral kidneys. Punctate nonobstructive renal c alculi could be obscured by renal sinus fat. Visualized urinary bladder is unremarkable. Partial visualization of bilateral pleural effusions. IMPRESSION: No gross focal renal lesion hydronephrosis. Partial visualization of bilateral pleural effusions.
[2018-04-20 21:57] LABS: Bilirubin,Urine NEG (Negative); Blood,Urine NEG (Negative); Color,Urine Straw (Yellow); Protein,Urine <15 mg/dL mg/dL (Negative); Urobilinogen,Urine < 2.0 mg/dL (<2.0)
[2018-04-20 22:02] LABS: Creatinine,Urine 13.1 mg/dL (0.1-20.0); Fractional Sodium Excretion 8.2
[2018-04-21] MEDS: MORPHINE IV PRN ×3 (00:41→13:02)
[2018-04-21 07:01] LABS: Hematocrit 30.3 % (35.5-45.6); Hemoglobin 10.2 gm/dl (11.8-15.2); Mean Corpuscular HGB Conc 34 % (32-34); Mean Corpuscular Volume 92 fl (84-94); Red Blood Count 3.29 M/mm3 (3.65-5.03); Red Cell Distribution Width 14.8 % (13.2-15.2)
[2018-04-21 07:10] LABS: INR 1.42 (0.87-1.13)
[2018-04-21 07:16] LABS: BUN/Creatinine Ratio 28; Blood Urea Nitrogen 36 mg/dL (9-20); Calcium 7.3 mg/dL (8.4-10.2); Hemolysis Index 8
[2018-04-21 07:25] LABS: Platelet Count 80 K/mm3 (140-440)
[2018-04-21] MEDS: HumaLOG SUB-Q SCH ×4 (08:06→22:10)
--- NOTE | 2018-04-21 08:16 | Event Note ---
Date: 04/21/18 [id number]
[2018-04-21] MEDS: NACL 0.9% 1000 ML 1,000 ML IV SCH (09:03)
--- NOTE | 2018-04-21 11:47 | Progress Note ---
Assessment and Plan Assessment and plan: Severe anemia due to acute blood loss from acute GI bleed and epistaxis hemoglobin now 10.2 after total 8 Units PRBC transfused Coagulopathy . INR is now 1.4 after FFP and Vitamin K Continue to hold Coumadin Acute GI bleed EGD revealed tear at GE junction s/p cautery will start clear liquid diet Epistaxis due to coagulopathy. patient stated he was having bleeding with clots from nose Atrial fibrillation, Cooumadin on hold due to active bleeding Thrombocytopenia. Transfused 1 unit CAD No chest pain Diabetes mellitus type 2. Fingerstick glucose Chronic systolic heart failure. Give Lasix iv prn ZULLY, Now resolved Discussed with Nephrology Depression UTI Started on ceftriaxone Full code status History Interval history: patient with acute GI bleed last dark stools was yesterday, hungry, asking about food Hospitalist Physical - Physical exam Narrative exam: GEN: Not in acute distress, lying in bed, malnourished HEENT: Normocephalic, atraumatic, Neck: supple, No JVD Lungs: Clear to auscultation bilaterally, no wheeze Heart:S1 and S2 regular, no murmurs, rubs or gallop, Abd:soft, non tender, non distended, normal bowel sounds Ext: Bilateral AKA, no cyanosis Neuro: Awake,alert, oriented x 3, No focal neurological signs - Constitutional Vitals: Temp Pulse Resp BP Pulse Ox 98.2 F 74 18 138/62 100 04/21/18 04:30 04/21/18 04:30 04/21/18 05:12 04/21/18 04:30 04/21/18 04:30 General appearance: Present: no acute distress Results - Labs CBC & Chem 7: 04/21/18 06:19 04/21/18 06:19 Labs: Laboratory Last Values WBC 7.0 K/mm3 (4.5-11.0) 04/21/18 06:19 RBC 3.29 M/mm3 (3.65-5.03) L 04/21/18 06:19 Hgb 10.2 gm/dl (11.8-15.2) L 04/21/18 06:19 Hct 30.3 % (35.5-45.6) L D 04/21/18 06:19 MCV 92 fl (84-94) 04/21/18 06:19 MCH 31 pg (28-32) 04/21/18 06:19 MCHC 34 % (32-34) 04/21/18 06:19 RDW 14.8 % (13.2-15.2) 04/21/18 06:19 Plt Count 80 K/mm3 (140-440) L 04/21/18 06:19 Lymph % (Auto) 21.2 % (13.4-35.0) 04/19/18 08:27 [place] % (Auto) 8.7 % (0.0-7.3) H 04/19/18 08:27 Eos % (Auto) 0.4 % (0.0-4.3) 04/19/18 08:27 Baso % (Auto) 0.4 % (0.0-1.8) 04/19/18 08:27 Lymph # 2.1 K/mm3 (1.2-5.4) 04/19/18 08:27 [place] # 0.9 K/mm3 (0.0-0.8) H 04/19/18 08:27 Eos # 0.0 K/mm3 (0.0-0.4) 04/19/18 08:27 Baso # 0.0 K/mm3 (0.0-0.1) 04/19/18 08:27 Seg Neutrophils % 69.3 % (40.0-70.0) 04/19/18 08:27 Seg Neutrophils # 6.8 K/mm3 (1.8-7.7) 04/19/18 08:27 PT 17.8 Sec. (12.2-14.9) H 04/21/18 06:19 INR 1.42 (0.87-1.13) H 04/21/18 06:19 APTT 60.4 Sec. (24.2-36.6) H* 04/18/18 13:09 D-Dimer 613.63 ng/mlDDU (0-234) H 04/17/18 16:52 Sodium 144 mmol/L (137-145) 04/21/18 06:19 Potassium 2.6 mmol/L (3.6-5.0) L* D 04/21/18 06:19 Chloride 108.9 mmol/L (98-107) H 04/21/18 06:19 Carbon Dioxide 22 mmol/L (22-30) 04/21/18 06:19 Anion Gap 16 mmol/L 04/21/18 06:19 BUN 36 mg/dL (9-20) H 04/21/18 06:19 Creatinine 1.3 mg/dL (0.8-1.5) 04/21/18 06:19 Estimated GFR > 60 ml/min 04/21/18 06:19 BUN/Creatinine Ratio 28 % 04/21/18 06:19 Glucose 115 mg/dL (75-100) H 04/21/18 06:19 POC Glucose 112 (70-105) H 04/21/18 06:16 Calcium 7.3 mg/dL (8.4-10.2) L 04/21/18 06:19 Magnesium 1.80 mg/dL (1.7-2.3) 04/18/18 13:09 Total Bilirubin 0.60 mg/dL (0.1-1.2) 04/20/18 09:58 AST 20 units/L (5-40) 04/20/18 09:58 ALT 12 units/L (7-56) 04/20/18 09:58 Alkaline Phosphatase 46 units/L (35-129) 04/20/18 09:58 Total Creatine Kinase 34 units/L (55-170) L 04/18/18 13:09 CK-MB (CK-2) 2.0 ng/mL (0.0-4.0) 04/18/18 13:09 CK-MB (CK-2) Rel Index 5.8 (0-4) H 04/18/18 13:09 Troponin T 0.048 ng/mL (0.00-0.029) H D 04/18/18 13:09 NT-Pro-B Natriuret Pep 3465 pg/mL (0-900) H 04/20/18 09:58 Total Protein 4.7 g/dL (6.3-8.2) L 04/20/18 09:58 Albumin 2.5 g/dL (3.9-5) L 04/20/18 09:58 Albumin/Globulin Ratio 1.1 % 04/20/18 09:58 Triglycerides 69 mg/dL (2-149) 04/17/18 16:52 Cholesterol 89 mg/dL (50-199) 04/17/18 16:52 LDL Cholesterol Direct 46 mg/dL (50-130) L 04/17/18 16:52 HDL Cholesterol 35 mg/dL (40-59) L 04/17/18 16:52 Cholesterol/HDL Ratio 2.54 % 04/17/18 16:52 TSH 1.390 mlU/mL (0.270-4.200) 04/17/18 16:52 Free T4 1.51 ng/dL (0.76-1.46) H 04/17/18 16:52 Urine Color Straw (Yellow) 04/20/18 11:40 Urine Turbidity Clear (Clear) 04/20/18 11:40 Urine pH 6.0 (5.0-7.0) 04/20/18 11:40 Ur Specific [place] 1.005 (1.003-1.030) 04/20/18 11:40 Urine Protein <15 mg/dl mg/dL (Negative) 04/20/18 11:40 Urine Glucose (UA) Neg mg/dL (Negative) 04/20/18 11:40 Urine Ketones Neg mg/dL (Negative) 04/20/18 11:40 Urine Blood Neg (Negative) 04/20/18 11:40 Urine Nitrite Neg (Negative) 04/20/18 11:40 Urine Bilirubin Neg (Negative) 04/20/18 11:40 Urine Urobilinogen < 2.0 mg/dL (<2.0) 04/20/18 11:40 Ur Leukocyte Esterase Tr (Negative) 04/20/18 11:40 Urine WBC (Auto) 1.0 /HPF (0.0-6.0) 04/20/18 11:40 Urine RBC (Auto) 1.0 /HPF (0.0-6.0) 04/20/18 11:40 U Epithel Cells (Auto) < 1.0 /HPF (0-13.0) 04/20/18 11:40 Urine Bacteria (Auto) 1+ /HPF (Negative) 04/17/18 17:34 Urine Creatinine 13.1 mg/dL (0.1-20.0) 04/20/18 11:41 Urine Sodium 98 mmol/L 04/20/18 11:41 Fraction Sodium Excret 8.2 04/20/18 11:41 Blood Type A POSITIVE 04/20/18 19:00 Antibody Screen Negative 04/20/18 19:00 Crossmatch See Detail 04/20/18 19:00 Nutrition/Malnutrition Assess - Dietary Evaluation Nutrition/Malnutrition Findings: Nutrition Notes Start: 04/18/18 13:01 Freq: Status: Active Protocol: Document 04/18/18 13:02 CT (Rec: 04/18/18 13:51 CT [id number]) Co-Sign 04/18/18 13:02 LP Nutrition Notes Need for Assessment generated from: Low BMI Initial or Follow up Assessment Current Diagnosis CKD(stage I-IV) Coronary Artery Disease Diabetes Hypertension Heart Failure Other Pertinent Diagnosis COPD Current Diet Clear Liquid Diet Labs/Tests Glucose: 134 K: 2.9 BUN: 47 Pertinent Medications Insulin Height 5 ft 7 in Weight 47.99 kg [place] Body Weight (kg) 67.27 BMI 16.5 Weight Status Underweight Subjective/Other Information RD screen for low BMI. Pt soiled himself at time of visit. Unable to complete interview. Burn Absent Trauma Absent #1 Nutrition Diagnosis Inadequate energy intake Etiology increased energy requirements/ increased nutrient needs d/t prolonged catabolic illness. As Evidenced by Signs and Symptoms BMI 16.6 Is patient on ventilator? No Is Patient Ambulatory and/or Out of Bed No REE-([place]-confined to bed) 1497.516 Kcal/Kg value to use for calculation 36 Approximate Energy Requirements Using 1728 kcal/Kg Additional Notes PRO: 58-67g PRO (1.2-1.4 g/kg) Fluid: 1 ml/kcal Nutrition Intervention Change Diet Order: Advance as medically feasible Add Supplement/Snack (indicate name/kcal Ensure Clear BID /protein ) Provides kCal: 480 Provides Protein (gm) 16 Goal #1 Diet Advancement Goal #2 Weight maintenance/gain Anticipated Discharge Needs: Consistent CHO/Renal Follow-Up By: 04/22/18 Additional Comments F/U: diet advancement, intakes
--- NOTE | 2018-04-21 12:14 | Progress Note ---
Assessment and Plan Impression * Acute renal failure * GI bleed * Hypertension * Coronary artery disease. Status post bypass surgery * Chronic atrial fibrillation * Cardiomyopathy. Ejection fraction of 30-35% * Hepatitis C * History of congestive heart failure Recommendations * Renal function much improved. Serum creatinine down to 1.3. It was also the same on admission. May be his baseline. * Renal ultrasound is normal * He is urine does not show any dipstick blood or protein and fractional excretion of sodium is 8.2% * He may have underlying chronic kidney disease * He is currently NPO and clinically does not appear to be volume depleted * Continue to hold his diuretics for now * Avoid nephrotoxins * Monitor fluid status and electrolytes closely * Further plan as per GI services Subjective Date of service: 04/21/18 Principal diagnosis: GI bleed Interval history: Patient complains of being hungry. Denies any hematochezia or melena. Denies any nausea or vomiting. No shortness of breath. Objective - Vital Signs Vital signs: Vital Signs - 12hr 04/21/18 04/21/18 04/21/18 00:25 00:27 00:41 Temperature 97.8 F 97.8 F Pulse Rate 71 71 Respiratory 18 18 18 Rate Blood Pressure 154/66 154/66 O2 Sat by Pulse 100 100 Oximetry 04/21/18 04/21/18 04/21/18 00:55 01:11 01:24 Temperature 98.4 F Pulse Rate 72 77 Respiratory 18 18 18 Rate Blood Pressure 136/58 138/60 O2 Sat by Pulse 100 100 Oximetry 04/21/18 04/21/18 04/21/18 01:25 01:37 01:38 Temperature 98.2 F 98.2 F 98.2 F Pulse Rate 73 79 75 Respiratory 19 18 18 Rate Blood Pressure 138/60 144/56 144/56 O2 Sat by Pulse 100 100 100 Oximetry 04/21/18 04/21/18 04/21/18 01:45 02:00 02:30 Temperature 98.2 F 97.9 F 98.3 F Pulse Rate 79 73 77 Respiratory 18 18 18 Rate Blood Pressure 144/56 137/56 139/55 O2 Sat by Pulse 100 100 100 Oximetry 04/21/18 04/21/18 04/21/18 02:39 03:00 03:30 Temperature 98.3 F 98.2 F 98.0 F Pulse Rate 76 78 78 Respiratory 18 18 18 Rate Blood Pressure 139/55 142/62 137/64 O2 Sat by Pulse 100 100 100 Oximetry 04/21/18 04/21/18 04/21/18 04:00 04:04 04:30 Temperature 98 F 98.0 F 98.2 F Pulse Rate 77 74 74 Respiratory 18 18 18 Rate Blood Pressure 135/60 135/60 138/62 O2 Sat by Pulse 100 100 100 Oximetry 04/21/18 04/21/18 04:42 05:12 Temperature Pulse Rate Respiratory 18 18 Rate Blood Pressure O2 Sat by Pulse Oximetry - General Appearance General appearance: well-developed, well-nourished, appears stated age EENT: PERRL, mucous membranes moist Neck: no JVD, no thyromegaly, no carotid bruit, supple Respiratory: Present: Clear to Ascultation Cardiology: regular, normal heart rate Gastrointestinal: normal, normoactive bowel sounds Integumentary: other (bilateral above-knee amputation) - Lab 04/21/18 06:19 04/21/18 06:19 Most recent lab results Calcium 7.3 mg/dL (8.4-10.2) L 04/21/18 06:19 Magnesium 1.80 mg/dL (1.7-2.3) 04/18/18 13:09 Urine Creatinine 13.1 mg/dL (0.1-20.0) 04/20/18 11:41 Urine Sodium 98 mmol/L 04/20/18 11:41 Medications & Allergies - Medications Allergies/Adverse Reactions: Allergies No Known Allergies Allergy (Verified 04/17/18 15:59) Active Medications: Generic Name Dose Route Start Last Admin Trade Name Blaise PRN Reason Stop Dose Admin Acetaminophen 650 mg 04/17/18 22:36 04/18/18 02:39 Tylenol PO 650 mg Q4H PRN Administration Pain MILD(1-3)/Fever >100.5/SCHULZ Carvedilol 3.125 mg 04/18/18 22:00 04/20/18 21:19 Coreg PO 3.125 mg BID SUN Administration Dextrose 50 ml 04/17/18 22:36 D50w (25gm) Syringe IV PRN PRN Hypoglycemia Ceftriaxone Sodium 1 gm in 50 mls @ 100 mls/hr 04/18/18 10:00 04/20/18 10:48 Rocephin/Ns 1 Gm/50 Ml IV 100 mls/hr Q24HR SUN Administration Protocol Sodium Chloride 1,000 mls @ 50 mls/hr 04/19/18 12:00 04/21/18 09:03 Nacl 0.9% 1000 Ml IV 50 mls/hr DIRECT SUN Administration Potassium Chloride 10 meq in 100 mls @ 100 mls/hr 04/21/18 09:00 Kcl 10meq/100ml IV 04/21/18 12:59 Q1H SUN Insulin Human Lispro 0 unit 04/18/18 07:30 04/21/18 08:06 Humalog SUB-Q Not Given ACHS SUN Protocol Morphine Sulfate 2 mg 04/18/18 08:36 04/21/18 04:42 Morphine IV 2 mg Q4H PRN Administration Pain, Moderate (4-6) Ondansetron HCl 4 mg 04/17/18 22:36 Zofran IV Q8H PRN Nausea And Vomiting Pantoprazole Sodium 40 mg 04/18/18 22:00 04/20/18 21:19 Protonix IV 40 mg BID SUN Administration Potassium Chloride 10 meq 04/19/18 10:00 04/20/18 10:49 K-Dur PO 10 meq QDAY SUN Administration Sodium Chloride 10 ml 04/18/18 10:00 04/20/18 21:19 Sodium Chloride Flush Syringe 10 Ml IV 10 ml BID SUN Administration Sodium Chloride 10 ml 04/17/18 22:36 Sodium Chloride Flush Syringe 10 Ml IV PRN PRN LINE FLUSH
[2018-04-21] MEDS: KCL 10MEQ/100ML 10 MEQ/100 ML BAG IV SCH ×2 (12:59→13:00)
[2018-04-21] MEDS: K-DUR PO SCH (13:01)
[2018-04-21] MEDS: COREG PO SCH ×2 (13:02→22:10)
[2018-04-21] MEDS: PROTONIX IV SCH ×2 (13:02→22:10)
[2018-04-21] MEDS: ROCEPHIN/NS 1 GM/50 ML 1 GM/50 ML BAG IV SCH (13:03)
[2018-04-21] MEDS: SODIUM CHLORIDE FLUSH SYRINGE 10 ML IV SCH ×2 (13:03→22:11)
[2018-04-21] MEDS: TYLENOL PO PRN (14:10)
[2018-04-21 14:27] LABS: Iron 76 ug/dL (49-181); Total Iron Binding Capacity 210 mcg/dL (250-450)
[2018-04-21 14:52] LABS: Partial Thromboplastin Time 31.8 Sec. (24.2-36.6)
--- NOTE | 2018-04-21 15:10 | Progress Note ---
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 Continue present management. 04/21/2018 >patient received blood transfusion and platelets,in S.R,anticoagulation on hold because of GI bleed,cardiac herbert stable. Subjective Date of service: 04/21/18 Principal diagnosis: GI bleed Interval history: patient is comfortable,no cardiac complaints.telemetry showing S.R. 04/21/2018>Patient says he is hungry and wants to eat.No cardiac symptoms. Objective Vital Signs Temp Pulse Pulse Pulse Pulse Resp Resp 04/21/18 13:02 77 04/21/18 10:00 77 77 77 19 04/21/18 05:12 18 04/21/18 04:42 18 04/21/18 04:30 98.2 F 74 18 04/21/18 04:04 98.0 F 74 18 04/21/18 04:00 98 F 77 18 04/21/18 03:30 98.0 F 78 18 04/21/18 03:00 98.2 F 78 18 04/21/18 02:39 98.3 F 76 18 04/21/18 02:30 98.3 F 77 18 04/21/18 02:00 97.9 F 73 18 04/21/18 01:45 98.2 F 79 18 04/21/18 01:38 98.2 F 75 18 04/21/18 01:37 98.2 F 79 18 04/21/18 01:25 98.2 F 73 19 04/21/18 01:24 77 18 04/21/18 01:11 18 04/21/18 00:55 98.4 F 72 18 04/21/18 00:41 18 04/21/18 00:27 97.8 F 71 18 04/21/18 00:25 97.8 F 71 18 04/21/18 00:10 97.4 F L 68 04/20/18 23:43 97.9 F 71 18 04/20/18 21:19 72 04/20/18 21:10 18 04/20/18 21:00 18 04/20/18 20:50 18 04/20/18 20:40 18 04/20/18 20:25 70 04/20/18 19:38 98.4 F 72 18 04/20/18 16:45 63 04/20/18 16:30 75 04/20/18 16:16 79 04/20/18 16:00 98.7 F 74 18 04/20/18 15:46 77 04/20/18 15:37 98.6 F 81 18 04/20/18 15:30 79 04/20/18 15:15 80 BP Pulse Ox 04/21/18 13:02 144/73 04/21/18 10:00 97 04/21/18 05:12 04/21/18 04:42 04/21/18 04:30 138/62 100 04/21/18 04:04 135/60 100 04/21/18 04:00 135/60 100 04/21/18 03:30 137/64 100 04/21/18 03:00 142/62 100 04/21/18 02:39 139/55 100 04/21/18 02:30 139/55 100 04/21/18 02:00 137/56 100 04/21/18 01:45 144/56 100 04/21/18 01:38 144/56 100 04/21/18 01:37 144/56 100 04/21/18 01:25 138/60 100 04/21/18 01:24 138/60 100 04/21/18 01:11 04/21/18 00:55 136/58 100 04/21/18 00:41 04/21/18 00:27 154/66 100 04/21/18 00:25 154/66 100 04/21/18 00:10 148/62 100 04/20/18 23:43 140/58 100 04/20/18 21:19 153/70 04/20/18 21:10 04/20/18 21:00 04/20/18 20:50 100 04/20/18 20:40 04/20/18 20:25 04/20/18 19:38 153/70 100 04/20/18 16:45 131/59 44 L 04/20/18 16:30 134/54 100 04/20/18 16:16 143/56 100 04/20/18 16:00 151/74 99 04/20/18 15:46 132/54 99 04/20/18 15:37 145/60 99 04/20/18 15:30 143/60 100 04/20/18 15:15 152/66 100 - Physical Examination HEENT: Positive: EOMI, Normocephaly, Mucus Membranes Moist Neck: Positive: neck supple, trachea midline. Negative: JVD/HJR, Masses Cardiac: Positive: Regular Rhythm Lungs: Positive: Normal Breath Sounds Neuro: Positive: Grossly Intact Abdomen: Positive: Soft, Active Bowel Sounds. Negative: Tender Skin: Positive: Clear. Negative: Rash Musculoskeletal: Normal Range of Motion Extremities: Present: Other (s/p bilateral AKA). Absent: edema - Labs and Meds Coagulation 04/21/18 04/21/18 Range/Units 06:19 13:30 PT 17.8 H (12.2-14.9) Sec. INR 1.42 H (0.87-1.13) APTT 31.8 (24.2-36.6) Sec. CBC 04/21/18 Range/Units 06:19 WBC 7.0 (4.5-11.0) K/mm3 RBC 3.29 L (3.65-5.03) M/mm3 Hgb 10.2 L (11.8-15.2) gm/dl Hct 30.3 L D (35.5-45.6) % Plt Count 80 L (140-440) K/mm3 Comprehensive Metabolic Panel 04/20/18 04/21/18 Range/Units 11:41 06:19 Sodium 139 144 (137-145) mmol/L Potassium 2.6 L* D (3.6-5.0) mmol/L Chloride 108.9 H (98-107) mmol/L Carbon Dioxide 22 (22-30) mmol/L BUN 36 H (9-20) mg/dL Creatinine 1.4 1.3 (0.8-1.5) mg/dL Glucose 115 H (75-100) mg/dL Calcium 7.3 L (8.4-10.2) mg/dL - Imaging and Cardiology EKG: image reviewed - Telemetry EKG Rhythm: Sinus Rhythm - EKG Sinus rhythms and dysrhythmias: sinus rhythm Repolarization changes or abnormalities: ST or T wave suggestive of ischemia
--- NOTE | 2018-04-21 16:22 | Progress Note ---
Assessment and Plan 1. GI bleed - due to Aimee-Rivera tear based on EGD x 2 yesterday. Resolved. H/H stable. Doing well. - advance diet, and if tolerated, may discharge to home with outpatient follow up. - discussed with Dr. Veras - would give plt to keep count > 60K Subjective Date of service: 04/21/18 Principal diagnosis: GI bleed Interval history: Pt feels much better. Hungry. Diarrhea resolved. No GI bleed. Objective - Constitutional Vitals: Vital Signs - 12hr 04/21/18 04/21/18 04/21/18 04:30 04:42 05:12 Temperature 98.2 F Pulse Rate 74 Pulse Rate [ Apical] Pulse Rate [ Left Radial] Pulse Rate [ Right Radial] Respiratory 18 18 18 Rate Blood Pressure 138/62 O2 Sat by Pulse 100 Oximetry 04/21/18 04/21/18 10:00 13:02 Temperature Pulse Rate 77 Pulse Rate [ 77 Apical] Pulse Rate [ 77 Left Radial] Pulse Rate [ 77 Right Radial] Respiratory 19 Rate Blood Pressure 144/73 O2 Sat by Pulse 97 Oximetry General appearance: Present: no acute distress - EENT Eyes: PERRL, EOM intact ENT: hearing intact - Respiratory Respiratory effort: normal - Gastrointestinal General gastrointestinal: Present: soft, non-tender - Labs CBC & Chem 7: 04/21/18 06:19 04/21/18 06:19 Labs: Abnormal lab results 04/17/18 04/20/18 04/20/18 Range/Units 16:52 16:54 19:00 RBC (3.65-5.03) M/mm3 Hgb (11.8-15.2) gm/dl Hct (35.5-45.6) % Plt Count (140-440) K/mm3 PT (12.2-14.9) Sec. INR (0.87-1.13) Fibrinogen (211-480) mg/dl Potassium (3.6-5.0) mmol/L Chloride (98-107) mmol/L BUN (9-20) mg/dL Glucose (75-100) mg/dL POC Glucose 217 H (70-105) Calcium (8.4-10.2) mg/dL TIBC (250-450) mcg/dL Crossmatch See Detail See Detail 04/20/18 04/21/18 04/21/18 Range/Units 20:43 06:16 06:19 RBC (3.65-5.03) M/mm3 Hgb (11.8-15.2) gm/dl Hct (35.5-45.6) % Plt Count (140-440) K/mm3 PT (12.2-14.9) Sec. INR (0.87-1.13) Fibrinogen (211-480) mg/dl Potassium 2.6 L* D (3.6-5.0) mmol/L Chloride 108.9 H (98-107) mmol/L BUN 36 H (9-20) mg/dL Glucose 115 H (75-100) mg/dL POC Glucose 163 H 112 H (70-105) Calcium 7.3 L (8.4-10.2) mg/dL TIBC (250-450) mcg/dL Crossmatch 04/21/18 04/21/18 04/21/18 Range/Units 06:19 06:19 12:02 RBC 3.29 L (3.65-5.03) M/mm3 Hgb 10.2 L (11.8-15.2) gm/dl Hct 30.3 L D (35.5-45.6) % Plt Count 80 L (140-440) K/mm3 PT 17.8 H (12.2-14.9) Sec. INR 1.42 H (0.87-1.13) Fibrinogen (211-480) mg/dl Potassium (3.6-5.0) mmol/L Chloride (98-107) mmol/L BUN (9-20) mg/dL Glucose (75-100) mg/dL POC Glucose 160 H (70-105) Calcium (8.4-10.2) mg/dL TIBC (250-450) mcg/dL Crossmatch 04/21/18 04/21/18 Range/Units 13:30 13:30 RBC (3.65-5.03) M/mm3 Hgb (11.8-15.2) gm/dl Hct (35.5-45.6) % Plt Count (140-440) K/mm3 PT (12.2-14.9) Sec. INR (0.87-1.13) Fibrinogen 202 L (211-480) mg/dl Potassium (3.6-5.0) mmol/L Chloride (98-107) mmol/L BUN (9-20) mg/dL Glucose (75-100) mg/dL POC Glucose (70-105) Calcium (8.4-10.2) mg/dL TIBC 210 L (250-450) mcg/dL Crossmatch Medications & Allergies - Medications Allergies/Adverse Reactions: Allergies No Known Allergies Allergy (Verified 04/17/18 15:59) Active Medications: Generic Name Dose Route Start Last Admin Trade Name Freq PRN Reason Stop Dose Admin Acetaminophen 650 mg 04/17/18 22:36 04/21/18 14:10 Tylenol PO 650 mg Q4H PRN Administration Pain MILD(1-3)/Fever >100.5/SCHULZ Carvedilol 3.125 mg 04/18/18 22:00 04/21/18 13:02 Coreg PO 3.125 mg BID SUN Administration Dextrose 50 ml 04/17/18 22:36 D50w (25gm) Syringe IV PRN PRN Hypoglycemia Ceftriaxone Sodium 1 gm in 50 mls @ 100 mls/hr 04/18/18 10:00 04/21/18 13:03 Rocephin/Ns 1 Gm/50 Ml IV 100 mls/hr Q24HR SUN Administration Protocol Sodium Chloride 1,000 mls @ 50 mls/hr 04/19/18 12:00 04/21/18 09:03 Nacl 0.9% 1000 Ml IV 50 mls/hr DIRECT SUN Administration Insulin Human Lispro 0 unit 04/18/18 07:30 04/21/18 13:01 Humalog SUB-Q 3 unit ACHS SUN Administration Protocol Morphine Sulfate 2 mg 04/18/18 08:36 04/21/18 13:02 Morphine IV 2 mg Q4H PRN Administration Pain, Moderate (4-6) Ondansetron HCl 4 mg 04/17/18 22:36 Zofran IV Q8H PRN Nausea And Vomiting Pantoprazole Sodium 40 mg 04/18/18 22:00 04/21/18 13:02 Protonix IV 40 mg BID SUN Administration Potassium Chloride 10 meq 04/19/18 10:00 04/21/18 13:01 K-Dur PO 10 meq QDAY SUN Administration Sodium Chloride 10 ml 04/18/18 10:00 04/21/18 13:03 Sodium Chloride Flush Syringe 10 Ml IV 10 ml BID SUN Administration Sodium Chloride 10 ml 04/17/18 22:36 Sodium Chloride Flush Syringe 10 Ml IV PRN PRN LINE FLUSH
--- NOTE | 2018-04-21 22:54 | Consultation ---
REFERRING PHYSICIAN: Dr. Veras. REASON FOR CONSULTATION: Low platelets. HISTORY OF PRESENT ILLNESS: I saw this patient, a 62-year-old male in the medical floor. The patient came to the hospital because of nosebleed. He has past history of hypertension, coronary artery disease, CHF, diabetes, CKD, depression, asthma, COPD, and atrial fibrillation, on Coumadin. The nosebleed has been happening for 2 days. When he came, the INR was elevated. Vitamin K was given and INR did not improve. Plasma was given. His hemoglobin was also low. He received multiple transfusions. He has undergone endoscopic procedure by GI team. The patient is n.p.o. Because of bleeding, I discussed with Dr. Veras regarding the patient. The patient's platelet count had gone down. Platelet transfusion was given. I have been asked to evaluate the patient for thrombocytopenia. At this time, no headache. History of nosebleed present. The patient later had melena and GI was consulted. He also had hematemesis. No history of liver disease, notes mention hepatitis C and peptic ulcer disease. At this time, no headache, no visual disturbances, no chest pain, no shortness of breath. No abdominal pain. He is hungry. He has bilateral AKA. PAST MEDICAL HISTORY: Atrial flutter/fibrillation, coronary artery disease, diabetes, heart failure, hypertension, ejection fraction of 30%, gastric ulcer, and hepatitis C. PAST SURGICAL HISTORY: PTCA, CABG, and bilateral AKA. SOCIAL HISTORY: No history of tobacco or alcohol usage. ALLERGIES: None. MEDICATIONS: Include Coreg, ceftriaxone, insulin, and Zofran. PHYSICAL EXAMINATION: VITAL SIGNS: Temperature is 98, pulse 77, respirations 19, and BP 144/73. HEENT: Pallor present. No icterus. NECK: No neck lymph nodes. HEART: S1, S2. LUNGS: Clear to auscultation. ABDOMEN: Soft. Bilateral AKA. NEUROLOGIC: Alert, awake, and answers questions appropriately. LABORATORY DATA: White count 7, hemoglobin 10, MCV 92, and platelet 80. The patient's platelet was 57 before transfusion and before that 73. At admission on 04/17/2018, platelet was 162 and hemoglobin was 5.3. INR was 6.93 at admission, later 9 and the latest was 1.42, fibrinogen 202, PTT 31. Serum iron 76, potassium 2.6, creatinine 1.3, bilirubin is not elevated. B12 is 612, folate 8, and ferritin 236. RADIOLOGY: Chest x-ray and renal ultrasounds were done. IMPRESSION: 1. The patient has a history of hepatitis C. At admission, platelet was 160s and the lowest was 57. He received platelet transfusion. LFTs are not abnormal. At this time, there is no nosebleed and the elevated INR may have had a role in the nosebleed, this may be a consumption coagulopathy causing low platelet. Fibrinogen is not very low. We will observe the patient's platelet trend. 2. Elevated INR secondary to Coumadin. The patient is being followed by primary. The question arises if at some time he can be changed to Eliquis 2.5. 3. Gastrointestinal bleed. GI team following the patient. 4. History of hypertension. 5. History of coronary artery disease. 6. History of congestive heart failure. 7. History of diabetes. 8. History of chronic kidney disease. 9. History of depression. 10. History of chronic obstructive pulmonary disease/asthma. 11. History of atrial fibrillation. 12. Bilateral above knee amputation. 13. I will follow the patient's platelet trend. At this time, we will observe the patient. JOB# [id number] NM/NTS
[2018-04-22] MEDS: MORPHINE IV PRN ×4 (01:56→23:59)
[2018-04-22 05:41] LABS: Hematocrit 30.5 % (35.5-45.6); Hemoglobin 10.4 gm/dl (11.8-15.2); Mean Corpuscular HGB Conc 34 % (32-34); Mean Corpuscular Volume 93 fl (84-94); Red Blood Count 3.27 M/mm3 (3.65-5.03); Red Cell Distribution Width 15.1 % (13.2-15.2)
[2018-04-22 05:47] LABS: Platelet Count 71 K/mm3 (140-440)
[2018-04-22 06:03] LABS: BUN/Creatinine Ratio 20; Blood Urea Nitrogen 20 mg/dL (9-20); Calcium 7.3 mg/dL (8.4-10.2); Hemolysis Index 7
[2018-04-22] MEDS: HumaLOG SUB-Q SCH ×4 (07:45→21:48)
--- NOTE | 2018-04-22 07:51 | Hem/Onc Progress Note ---
Assessment and Plan 1. The patient has a history of hepatitis C. At admission, platelet was 160s and the lowest was 57. He received platelet transfusion. LFTs are not abnormal. At this time, there is no nosebleed and the elevated INR may have had a role in the nosebleed, this may be a consumption coagulopathy causing low platelet. Fibrinogen is not very low. We will observe the patient's platelet trend. 2. Elevated INR secondary to Coumadin. The patient is being followed by primary. The question arises if at some time he can be changed to Eliquis 2.5. 3. Gastrointestinal bleed. GI team following the patient. 4. History of hypertension. 5. History of coronary artery disease. 6. History of congestive heart failure. 7. History of diabetes. 8. History of chronic kidney disease. 9. History of depression. 10. History of chronic obstructive pulmonary disease/asthma. 11. History of atrial fibrillation. 12. Bilateral above knee amputation. 13. I will follow the patient's platelet trend. At this time, we will observe the patient. 04/22 - plt 71 - will follow trend - d/w dr Veras - Patient Problems (1) Thrombocytopenia Current Visit: Yes Status: Acute (2) Anemia Current Visit: Yes Status: Acute Qualifiers: Anemia type: iron deficiency Iron deficiency anemia type: chronic blood loss Qualified Code(s): D50.0 - Iron deficiency anemia secondary to blood loss (chronic) Subjective Date of service: 04/22/18 Principal diagnosis: anemia - low Interval history: eating no bleeding Objective - Constitutional Vitals: Last Vital Signs Temp 97.8 F 04/22/18 04:53 Pulse 79 04/22/18 04:53 Resp 18 04/22/18 04:53 BP 148/70 04/22/18 04:53 Pulse Ox 98 04/22/18 04:53 Pain Intensity (0-10): denies any pain General appearance: no acute distress Performance status: 3-limited selfcare (AKA) - EENT Eyes: EOM intact ENT: clear oral mucosa Lymph node exam: negative cervical - Neck Neck: normal ROM - Respiratory Respiratory effort: Positive: normal Respiratory: bilateral: CTA - Cardiovascular Heart Sounds: Present: S1 & S2 Extremities: No edema (arms) - Gastrointestinal General gastrointestinal: Present: soft, non-tender Rectal Exam: deferred - Genitourinary Male genitourinary: Present: deferred - Integumentary Integumentary: warm - Musculoskeletal Musculoskeletal: other (b/l AKA) - Neurologic Neurologic: moves all extremities - Labs Lab Results: Laboratory Results - last 24 hr 04/21/18 04/21/18 04/21/18 12:02 13:30 13:30 WBC RBC Hgb Hct MCV MCH MCHC RDW Plt Count APTT Fibrinogen Sodium Potassium Chloride Carbon Dioxide Anion Gap BUN Creatinine Estimated GFR BUN/Creatinine Ratio Glucose POC Glucose 160 H Calcium Iron 76 TIBC 210 L Ferritin 236.2 Vitamin B12 Folate 04/21/18 04/21/18 04/21/18 13:30 13:30 13:30 WBC RBC Hgb Hct MCV MCH MCHC RDW Plt Count APTT 31.8 Fibrinogen 202 L Sodium Potassium Chloride Carbon Dioxide Anion Gap BUN Creatinine Estimated GFR BUN/Creatinine Ratio Glucose POC Glucose Calcium Iron TIBC Ferritin Vitamin B12 612.5 Folate 8.55 04/21/18 04/21/18 04/22/18 17:18 20:15 05:12 WBC RBC Hgb Hct MCV MCH MCHC RDW Plt Count APTT Fibrinogen Sodium 140 Potassium 3.2 L D Chloride 109.1 H Carbon Dioxide 20 L Anion Gap 14 BUN 20 Creatinine 1.0 Estimated GFR > 60 BUN/Creatinine Ratio 20 Glucose 126 H POC Glucose 127 H 110 H Calcium 7.3 L Iron TIBC Ferritin Vitamin B12 Folate 04/22/18 04/22/18 05:12 05:59 WBC 6.2 RBC 3.27 L Hgb 10.4 L Hct 30.5 L MCV 93 MCH 32 MCHC 34 RDW 15.1 Plt Count 71 L APTT Fibrinogen Sodium Potassium Chloride Carbon Dioxide Anion Gap BUN Creatinine Estimated GFR BUN/Creatinine Ratio Glucose POC Glucose 108 H Calcium Iron TIBC Ferritin Vitamin B12 Folate Medications & Allergies - Medications Allergies/Adverse Reactions: Allergies No Known Allergies Allergy (Verified 04/17/18 15:59) Home Medications: Home Medications Medication Instructions Recorded Confirmed Last Taken Type Albuterol Sulfate [Ventolin HFA] 2 puff IH Q4H PRN 04/22/18 04/22/18 Unknown History Aspirin [Adult Low Dose Aspirin EC] 81 mg PO DAILY 04/22/18 04/22/18 Unknown History AtorvaSTATin [Lipitor] 20 mg PO QHS 04/22/18 04/22/18 Unknown History Carvedilol [Coreg] 3.125 mg PO BID 04/22/18 04/22/18 Unknown History Container,Empty [Nasal [place] 1 spray INNOSTRIL BID PRN 04/22/18 04/22/18 Unknown History Bottle] Diclofenac Sodium [Voltaren] 1 gm TP QHS 04/22/18 04/22/18 Unknown History Docusate Sodium [Colace CAP] 1 tab PO TID 04/22/18 04/22/18 Unknown History Lidocaine [Lidoderm] 1 each TP QAM 04/22/18 04/22/18 Unknown History Multivitamin [Multiple Vitamins] 1 each PO DAILY 04/22/18 04/22/18 Unknown History Pantoprazole [Protonix TAB] 40 mg PO DAILY 04/22/18 04/22/18 Unknown History Potassium Chloride [Klor-Con M10] 10 meq PO DAILY 04/22/18 04/22/18 Unknown History RX: Acetaminophen 2 tab PO Q4H PRN MDD 3000 mg/day 04/22/18 04/22/18 Unknown History RX: Ferrous Gluconate 324 mg PO 3XW 04/22/18 04/22/18 Unknown History RX: Nitroglycerin 0.4 mg SL Q5M PRN 04/22/18 04/22/18 Unknown History RX: Sodium Bicarbonate 2 tab PO DAILY 04/22/18 04/22/18 Unknown History Sennosides [Senna Laxative] 2 tab PO BID 04/22/18 04/22/18 Unknown History Tamsulosin HCl [Flomax] 0.4 mg PO QHS 04/22/18 04/22/18 Unknown History Torsemide [Demadex] 10 mg PO QDAY 04/22/18 04/22/18 Unknown History Tramadol HCl [Ultram] 50 mg PO Q6H 04/22/18 04/22/18 Unknown History Warfarin Sodium [Coumadin] 2.5 mg PO DAILY 04/22/18 04/22/18 Unknown History busPIRone [Buspar] 5 mg PO BID 04/22/18 04/22/18 Unknown History Active Medications: Generic Name Dose Route Start Last Admin Trade Name Freq PRN Reason Stop Dose Admin Acetaminophen 650 mg 04/17/18 22:36 04/21/18 14:10 Tylenol PO 650 mg Q4H PRN Administration Pain MILD(1-3)/Fever >100.5/SCHULZ Carvedilol 3.125 mg 04/18/18 22:00 04/21/18 22:10 Coreg PO 3.125 mg BID SUN Administration Dextrose 50 ml 04/17/18 22:36 D50w (25gm) Syringe IV PRN PRN Hypoglycemia Ceftriaxone Sodium 1 gm in 50 mls @ 100 mls/hr 04/18/18 10:00 04/21/18 13:03 Rocephin/Ns 1 Gm/50 Ml IV 100 mls/hr Q24HR SUN Administration Protocol Sodium Chloride 1,000 mls @ 50 mls/hr 04/19/18 12:00 04/21/18 09:03 Nacl 0.9% 1000 Ml IV 50 mls/hr DIRECT SUN Administration Potassium Chloride 10 meq in 100 mls @ 100 mls/hr 04/22/18 08:00 Kcl 10meq/100ml IV 04/22/18 09:59 Q1H SUN Insulin Human Lispro 0 unit 04/18/18 07:30 04/22/18 07:45 Humalog SUB-Q Not Given ACHS SUN Protocol Morphine Sulfate 2 mg 04/18/18 08:36 04/22/18 01:56 Morphine IV 2 mg Q4H PRN Administration Pain, Moderate (4-6) Ondansetron HCl 4 mg 04/17/18 22:36 Zofran IV Q8H PRN Nausea And Vomiting Pantoprazole Sodium 40 mg 04/18/18 22:00 04/21/18 22:10 Protonix IV 40 mg BID SUN Administration Potassium Chloride 10 meq 04/19/18 10:00 04/21/18 13:01 K-Dur PO 10 meq QDAY SUN Administration Potassium Chloride 40 meq 04/22/18 08:00 K-Dur PO 04/22/18 12:01 Q4H SUN Sodium Chloride 10 ml 04/18/18 10:00 04/21/18 22:11 Sodium Chloride Flush Syringe 10 Ml IV 10 ml BID SUN Administration Sodium Chloride 10 ml 04/17/18 22:36 Sodium Chloride Flush Syringe 10 Ml IV PRN PRN LINE FLUSH
--- NOTE | 2018-04-22 08:26 | Progress Note ---
Assessment and Plan Impression * Acute renal failure * GI bleed * Hypertension * Coronary artery disease. Status post bypass surgery * Chronic atrial fibrillation * Cardiomyopathy. Ejection fraction of 30-35% * Hepatitis C * History of congestive heart failure Recommendations * Renal function much improved. Serum creatinine down to 1.0. Most likely his baseline . * Renal ultrasound is normal * He is urine does not show any dipstick blood or protein and fractional excretion of sodium is 8.2% * Patient clinically appears euvolemic * Continue to hold his diuretics for now * Avoid nephrotoxins * Monitor fluid status and electrolytes closely * Further plan as per GI services * Shall follow him peripherally Subjective Date of service: 04/22/18 Principal diagnosis: GI bleed Interval history: Patient feels much better today. Denies any shortness of breath. No nausea vo miting or diarrhea. Objective - Vital Signs Vital signs: Vital Signs - 12hr 04/21/18 04/21/18 04/22/18 22:10 23:21 01:56 Temperature 98.2 F Pulse Rate 84 82 Respiratory 20 18 Rate Respiratory Rate [Bilateral Knee] Blood Pressure 118/56 140/62 O2 Sat by Pulse 99 Oximetry 04/22/18 04/22/18 04/22/18 02:02 02:26 04:53 Temperature 97.8 F Pulse Rate 79 Respiratory 18 18 Rate Respiratory 18 Rate [Bilateral Knee] Blood Pressure 148/70 O2 Sat by Pulse 98 Oximetry 04/22/18 08:16 Temperature 98.3 F Pulse Rate 78 Respiratory 18 Rate Respiratory Rate [Bilateral Knee] Blood Pressure 137/108 O2 Sat by Pulse 99 Oximetry - General Appearance General appearance: well-developed, well-nourished, appears stated age EENT: PERRL, mucous membranes moist Neck: no JVD, no thyromegaly, no carotid bruit, supple Respiratory: Present: Clear to Ascultation Cardiology: regular, normal heart rate Gastrointestinal: normal, normoactive bowel sounds Integumentary: other (bilateral above-knee amputation) - Lab 04/22/18 05:12 04/22/18 05:12 Most recent lab results Calcium 7.3 mg/dL (8.4-10.2) L 04/22/18 05:12 Magnesium 1.80 mg/dL (1.7-2.3) 04/18/18 13:09 Urine Creatinine 13.1 mg/dL (0.1-20.0) 04/20/18 11:41 Urine Sodium 98 mmol/L 04/20/18 11:41 Medications & Allergies - Medications Allergies/Adverse Reactions: Allergies No Known Allergies Allergy (Verified 04/17/18 15:59) Home Medications: Home Medications Medication Instructions Recorded Confirmed Last Taken Type Acetaminophen 2 tab PO Q4H PRN MDD 3000 mg/day 04/22/18 04/22/18 Unknown History Albuterol Sulfate [Ventolin HFA] 2 puff IH Q4H PRN 04/22/18 04/22/18 Unknown History Aspirin [Adult Low Dose Aspirin EC] 81 mg PO DAILY 04/22/18 04/22/18 Unknown History AtorvaSTATin [Lipitor] 20 mg PO QHS 04/22/18 04/22/18 Unknown History Carvedilol [Coreg] 3.125 mg PO BID 04/22/18 04/22/18 Unknown History Container,Empty [Nasal [place] 1 spray INNOSTRIL BID PRN 04/22/18 04/22/18 Unknown History Bottle] Diclofenac Sodium [Voltaren] 1 gm TP QHS 04/22/18 04/22/18 Unknown History Docusate Sodium [Colace CAP] 1 tab PO TID 04/22/18 04/22/18 Unknown History Ferrous Gluconate 324 mg PO 3XW 04/22/18 04/22/18 Unknown History Lidocaine [Lidoderm] 1 each TP QAM 04/22/18 04/22/18 Unknown History Multivitamin [Multiple Vitamins] 1 each PO DAILY 04/22/18 04/22/18 Unknown Histo ry Nitroglycerin 0.4 mg SL Q5M PRN 04/22/18 04/22/18 Unknown History Pantoprazole [Protonix TAB] 40 mg PO DAILY 04/22/18 04/22/18 Unknown History Potassium Chloride [Klor-Con M10] 10 meq PO DAILY 04/22/18 04/22/18 Unknown History Sennosides [Senna Laxative] 2 tab PO BID 04/22/18 04/22/18 Unknown History Sodium Bicarbonate 2 tab PO DAILY 04/22/18 04/22/18 Unknown History Tamsulosin HCl [Flomax] 0.4 mg PO QHS 04/22/18 04/22/18 Unknown History Torsemide [Demadex] 10 mg PO QDAY 04/22/18 04/22/18 Unknown History Tramadol HCl [Ultram] 50 mg PO Q6H 04/22/18 04/22/18 Unknown History Warfarin Sodium [Coumadin] 2.5 mg PO DAILY 04/22/18 04/22/18 Unknown History busPIRone [Buspar] 5 mg PO BID 04/22/18 04/22/18 Unknown History Active Medications: Generic Name Dose Route Start Last Admin Trade Name Freq PRN Reason Stop Dose Admin Acetaminophen 650 mg 04/17/18 22:36 04/21/18 14:10 Tylenol PO 650 mg Q4H PRN Administration Pain MILD(1-3)/Fever >100.5/SCHULZ Carvedilol 3.125 mg 04/18/18 22:00 04/21/18 22:10 Coreg PO 3.125 mg BID SUN Administration Dextrose 50 ml 04/17/18 22:36 D50w (25gm) Syringe IV PRN PRN Hypoglycemia Ceftriaxone Sodium 1 gm in 50 mls @ 100 mls/hr 04/18/18 10:00 04/21/18 13:03 Rocephin/Ns 1 Gm/50 Ml IV 100 mls/hr Q24HR SUN Administration Protocol Sodium Chloride 1,000 mls @ 50 mls/hr 04/19/18 12:00 04/21/18 09:03 Nacl 0.9% 1000 Ml IV 50 mls/hr DIRECT SUN Administration Potassium Chloride 10 meq in 100 mls @ 100 mls/hr 04/22/18 08:00 Kcl 10meq/100ml IV 04/22/18 09:59 Q1H SUN Insulin Human Lispro 0 unit 04/18/18 07:30 04/22/18 07:45 Humalog SUB-Q Not Given ACHS SUN Protocol Morphine Sulfate 2 mg 04/18/18 08:36 04/22/18 01:56 Morphine IV 2 mg Q4H PRN Administration Pain, Moderate (4-6) Ondansetron HCl 4 mg 04/17/18 22:36 Zofran IV Q8H PRN Nausea And Vomiting Pantoprazole Sodium 40 mg 04/18/18 22:00 04/21/18 22:10 Protonix IV 40 mg BID SUN Administration Potassium Chloride 10 meq 04/19/18 10:00 04/21/18 13:01 K-Dur PO 10 meq QDAY SUN Administration Potassium Chloride 40 meq 04/22/18 09:00 K-Dur PO 04/22/18 13:01 Q4H SUN Sodium Chloride 10 ml 04/18/18 10:00 04/21/18 22:11 Sodium Chloride Flush Syringe 10 Ml IV 10 ml BID SUN Administration Sodium Chloride 10 ml 04/17/18 22:36 Sodium Chloride Flush Syringe 10 Ml IV PRN PRN LINE FLUSH
[2018-04-22] MEDS: K-DUR PO SCH ×3 (08:42→13:14)
[2018-04-22] MEDS: KCL 10MEQ/100ML 10 MEQ/100 ML BAG IV SCH ×2 (08:43→10:00)
[2018-04-22] MEDS: TYLENOL PO PRN ×2 (10:31→22:51)
[2018-04-22] MEDS: COREG PO SCH ×2 (10:32→21:48)
[2018-04-22] MEDS: PROTONIX IV SCH (10:32)
[2018-04-22] MEDS: ROCEPHIN/NS 1 GM/50 ML 1 GM/50 ML BAG IV SCH (10:33)
[2018-04-22] MEDS: SODIUM CHLORIDE FLUSH SYRINGE 10 ML IV SCH ×2 (10:33→21:48)
--- NOTE | 2018-04-22 12:58 | Gastroenterology Progress Note ---
Assessment and Plan 1.GI bleed -2/2 M-W tear based on EGD x 2 -H/H stable, plt 71, INR 1.42 -no active signs of bleeding -clinically, patient is w/o GI complaints. Denies abd pain or N/V. Tolerating diet -okay to resume anticoagulation if needed per cardiology recommendations in 1 week -continue PPI and supportive care -okay to be d/c per GI standpoint with f/u in clinic ~2 weeks -will sign off, please call if needed Subjective Date of service: 04/22/18 Principal diagnosis: GI bleed Interval history: No active signs of bleeding overnight or this am. Objective - Constitutional Vitals: Temp Pulse Resp BP Pulse Ox 98.3 F 78 19 137/108 98 04/22/18 08:16 04/22/18 10:32 04/22/18 10:00 04/22/18 10:32 04/22/18 10:00 General appearance: no acute distress - Respiratory Respiratory effort: normal - Gastrointestinal General gastrointestinal: Present: soft, non-tender, non-distended, normal bowel sounds - Neurologic Neurological: alert and oriented x3 - Labs CBC & Chem 7: 04/22/18 05:12 04/22/18 05:12 Labs: Laboratory Results - last 24 hr 04/21/18 04/21/18 04/21/18 13:30 13:30 13:30 WBC RBC Hgb Hct MCV MCH MCHC RDW Plt Count APTT Fibrinogen Sodium Potassium Chloride Carbon Dioxide Anion Gap BUN Creatinine Estimated GFR BUN/Creatinine Ratio Glucose POC Glucose Calcium Iron 76 TIBC 210 L Ferritin 236.2 Vitamin B12 612.5 Folate 04/21/18 04/21/18 04/21/18 13:30 13:30 17:18 WBC RBC Hgb Hct MCV MCH MCHC RDW Plt Count APTT 31.8 Fibrinogen 202 L Sodium Potassium Chloride Carbon Dioxide Anion Gap BUN Creatinine Estimated GFR BUN/Creatinine Ratio Glucose POC Glucose 127 H Calcium Iron TIBC Ferritin Vitamin B12 Folate 8.55 04/21/18 04/22/18 04/22/18 20:15 05:12 05:12 WBC 6.2 RBC 3.27 L Hgb 10.4 L Hct 30.5 L MCV 93 MCH 32 MCHC 34 RDW 15.1 Plt Count 71 L APTT Fibrinogen Sodium 140 Potassium 3.2 L D Chloride 109.1 H Carbon Dioxide 20 L Anion Gap 14 BUN 20 Creatinine 1.0 Estimated GFR > 60 BUN/Creatinine Ratio 20 Glucose 126 H POC Glucose 110 H Calcium 7.3 L Iron TIBC Ferritin Vitamin B12 Folate 04/22/18 05:59 WBC RBC Hgb Hct MCV MCH MCHC RDW Plt Count APTT Fibrinogen Sodium Potassium Chloride Carbon Dioxide Anion Gap BUN Creatinine Estimated GFR BUN/Creatinine Ratio Glucose POC Glucose 108 H Calcium Iron TIBC Ferritin Vitamin B12 Folate
--- NOTE | 2018-04-22 14:09 | Progress Note ---
Assessment and Plan Cont Guideline-Directed cardiac medications as tolerated. S/p EGD, H/H stable. Per GI team, okay to resume anticoagulation if needed per cardiology recommendations in 1 week. Pt has been on coumadin. He presented with supratherapeutic INR and reports that consistent monitoring of his INR was an issue in the rehab facility. Pt is a candiade for NOAC - Eliquis. Will plan to convert to Eliquis 5mg BID in 1 week per GI recs. The patient has been seen in conjunction with Dr. Mendez who agrees with the assessment and plan of care. - Patient Problems (1) Epistaxis Current Visit: Yes Status: Acute (2) Melena Current Visit: Yes Status: Acute (3) Severe anemia Current Visit: Yes Status: Acute (4) Supratherapeutic INR Current Visit: Yes Status: Acute (5) Acute on chronic HFrEF (heart failure with reduced ejection fraction) Current Visit: Yes Status: Acute (6) Ischemic cardiomyopathy Current Visit: Yes Status: Acute (7) CAD (coronary artery disease) Current Visit: Yes Status: Chronic Qualifiers: Coronary Disease-Associated Artery/Lesion type: [place] artery (8) Hx of CABG Current Visit: Yes Status: Chronic (9) AICD (automatic cardioverter/defibrillator) present Current Visit: Yes Status: Acute (10) PAF (paroxysmal atrial fibrillation) Current Visit: Yes Status: Chronic (11) H/O gastric ulcer Current Visit: Yes Status: Resolved (12) UTI (urinary tract infection) Current Visit: Yes Status: Acute (13) S/P AKA (above knee amputation) bilateral Current Visit: Yes Status: Acute (14) Diabetes mellitus Current Visit: Yes Status: Acute Subjective Date of service: 04/22/18 Principal diagnosis: GI bleed Interval history: pt resting in bed, no current cardiac complaints. in SR with PVCs overnight on telemetry. Objective Last Vital Signs Temp 98.3 F 04/22/18 08:16 Pulse 78 04/22/18 10:32 Resp 19 04/22/18 10:00 BP 137/108 04/22/18 10:32 Pulse Ox 98 04/22/18 10:00 - Physical Examination General: No Apparent Distress HEENT: Positive: EOMI, Normocephaly, Mucus Membranes Moist Neck: Positive: neck supple, trachea midline. Negative: JVD/HJR, Masses Cardiac: Positive: Reg Rate and Rhythm, S1/S2 Lungs: Positive: Decreased Breath Sounds Neuro: Positive: Grossly Intact Abdomen: Positive: Soft, Active Bowel Sounds. Negative: Tender Skin: Positive: Clear. Negative: Rash Musculoskeletal: Normal Range of Motion Extremities: Present: Other (s/p bilateral AKA). Absent: edema - Labs and Meds Coagulation 04/21/18 Range/Units 13:30 APTT 31.8 (24.2-36.6) Sec. CBC 04/22/18 Range/Units 05:12 WBC 6.2 (4.5-11.0) K/mm3 RBC 3.27 L (3.65-5.03) M/mm3 Hgb 10.4 L (11.8-15.2) gm/dl Hct 30.5 L (35.5-45.6) % Plt Count 71 L (140-440) K/mm3 Comprehensive Metabolic Panel 04/22/18 Range/Units 05:12 Sodium 140 (137-145) mmol/L Potassium 3.2 L D (3.6-5.0) mmol/L Chloride 109.1 H (98-107) mmol/L Carbon Dioxide 20 L (22-30) mmol/L BUN 20 (9-20) mg/dL Creatinine 1.0 (0.8-1.5) mg/dL Glucose 126 H (75-100) mg/dL Calcium 7.3 L (8.4-10.2) mg/dL - Imaging and Cardiology EKG: image reviewed - EKG Sinus rhythms and dysrhythmias: sinus rhythm Repolarization changes or abnormalities: ST or T wave suggestive of ischemia
--- NOTE | 2018-04-22 14:32 | Discharge Summary ---
Providers - Providers Date of Admission: 04/17/18 18:25 Date of discharge: 04/22/18 Attending physician: SEE DIALLO 04/18/18 01:04 Consult to Physician [CONS] Routine Comment: Consulting Provider: ANN MUÑOZ Physician Instructions: Reason For Exam: ab ce 04/18/18 13:49 Consult to Physician [CONS] Routine Comment: Consulting Provider: FARAZ SALMERON Physician Instructions: Reason For Exam: Severe anemia, On Coumadin, coagulopathy 04/19/18 09:55 Consult to Physician [CONS] Routine Comment: Consulting Provider: JUSTINE NAVARRO Physician Instructions: Reason For Exam: ZULLY 04/20/18 13:41 Consult to Physician [CONS] Routine Comment: Consulting Provider: GARRY ALVAREZ Physician Instructions: Reason For Exam: Thrombocytopenia Primary care physician: ADALBERTO UP Hospitalization Condition: Fair Disposition: DC-01 TO HOME OR SELFCARE - Discharge Diagnoses (1) Acute on chronic HFrEF (heart failure with reduced ejection fraction) Status: Acute Core Measure Documentation - Palliative Care Palliative Care/ Comfort Measures: Not Applicable - Core Measures Any of the following diagnoses?: none Exam - Constitutional Vitals: Temp Pulse Resp BP Pulse Ox 98.3 F 78 19 137/108 98 04/22/18 08:16 04/22/18 10:32 04/22/18 10:00 04/22/18 10:32 04/22/18 10:00 Plan Activity: advance as tolerated Diet: low fat, low cholesterol, low salt, diabetic, other (soft) Additional Instructions: 1.Follow up with PCP in 1 week. 2.Follow up with Dr. Muñoz in 1 week. 3.Follow up with Dr. Phillips GI in 1 week. 4.Spice Mixer to resume Aspirin and Eliquis in office in 1 week. Prescriptions: Pantoprazole [Protonix TAB] 40 mg PO BID #60 tablet
--- NOTE | 2018-04-22 16:30 | Progress Note ---
Assessment and Plan Assessment and plan: Severe anemia due to acute blood loss from acute GI bleed and epistaxis Total 8 units PRBC transfused Coagulopathy . INR is now 1.4 after FFP and Vitamin K Continue to hold Coumadin Acute GI bleed EGD revealed tear at GE junction s/p cautery Started diet Epistaxis due to coagulopathy., resolved patient stated he was having bleeding with clots from nose Atrial fibrillation, Cooumadin on hold due to active bleeding Thrombocytopenia. Transfused 1 unit CAD No chest pain Diabetes mellitus type 2. Fingerstick glucose Acute on Chronic systolic heart failure. Lasix iv prn ZULLY due to ATN Now resolved Discussed with Nephrology Severe Malnutrition, Depression UTI Started on ceftriaxone Full code status Dispo.Patient medically stable, discharge orders put in for dc home, but now wants SNF placement. 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 Aspirin and Eliquis to be started as outpatient in 1 week - Patient Problems (1) Acute on chronic HFrEF (heart failure with reduced ejection fraction) Current Visit: Yes Status: Acute History Interval history: patient with acute GI bleed, now resolved Was to discharge home but now seeking placement Hospitalist Physical - Physical exam Narrative exam: GEN: Not in acute distress, lying in bed, malnourished HEENT: Normocephalic, atraumatic, Neck: supple, No JVD Lungs: Clear to auscultation bilaterally, no wheeze Heart:S1 and S2 regular, no murmurs, rubs or gallop, Abd:soft, non tender, non distended, normal bowel sounds Ext: Bilateral AKA, no cyanosis Neuro: Awake,alert, oriented x 3, No focal neurological signs - Constitutional Vitals: Temp Pulse Resp BP Pulse Ox 98.3 F 78 19 137/108 98 04/22/18 08:16 04/22/18 10:32 04/22/18 10:00 04/22/18 10:32 04/22/18 10:00 General appearance: Present: no acute distress Results - Labs CBC & Chem 7: 04/22/18 05:12 04/22/18 05:12 Labs: Laboratory Last Values WBC 6.2 K/mm3 (4.5-11.0) 04/22/18 05:12 RBC 3.27 M/mm3 (3.65-5.03) L 04/22/18 05:12 Hgb 10.4 gm/dl (11.8-15.2) L 04/22/18 05:12 Hct 30.5 % (35.5-45.6) L 04/22/18 05:12 MCV 93 fl (84-94) 04/22/18 05:12 MCH 32 pg (28-32) 04/22/18 05:12 MCHC 34 % (32-34) 04/22/18 05:12 RDW 15.1 % (13.2-15.2) 04/22/18 05:12 Plt Count 71 K/mm3 (140-440) L 04/22/18 05:12 Lymph % (Auto) 21.2 % (13.4-35.0) 04/19/18 08:27 [place] % (Auto) 8.7 % (0.0-7.3) H 04/19/18 08:27 Eos % (Auto) 0.4 % (0.0-4.3) 04/19/18 08:27 Baso % (Auto) 0.4 % (0.0-1.8) 04/19/18 08:27 Lymph # 2.1 K/mm3 (1.2-5.4) 04/19/18 08:27 [place] # 0.9 K/mm3 (0.0-0.8) H 04/19/18 08:27 Eos # 0.0 K/mm3 (0.0-0.4) 04/19/18 08:27 Baso # 0.0 K/mm3 (0.0-0.1) 04/19/18 08:27 Seg Neutrophils % 69.3 % (40.0-70.0) 04/19/18 08:27 Seg Neutrophils # 6.8 K/mm3 (1.8-7.7) 04/19/18 08:27 PT 17.8 Sec. (12.2-14.9) H 04/21/18 06:19 INR 1.42 (0.87-1.13) H 04/21/18 06:19 APTT 31.8 Sec. (24.2-36.6) 04/21/18 13:30 Fibrinogen 202 mg/dl (211-480) L 04/21/18 13:30 D-Dimer 613.63 ng/mlDDU (0-234) H 04/17/18 16:52 Sodium 140 mmol/L (137-145) 04/22/18 05:12 Potassium 3.2 mmol/L (3.6-5.0) L D 04/22/18 05:12 Chloride 109.1 mmol/L (98-107) H 04/22/18 05:12 Carbon Dioxide 20 mmol/L (22-30) L 04/22/18 05:12 Anion Gap 14 mmol/L 04/22/18 05:12 BUN 20 mg/dL (9-20) 04/22/18 05:12 Creatinine 1.0 mg/dL (0.8-1.5) 04/22/18 05:12 Estimated GFR > 60 ml/min 04/22/18 05:12 BUN/Creatinine Ratio 20 % 04/22/18 05:12 Glucose 126 mg/dL (75-100) H 04/22/18 05:12 POC Glucose 108 (70-105) H 04/22/18 05:59 Calcium 7.3 mg/dL (8.4-10.2) L 04/22/18 05:12 Magnesium 1.80 mg/dL (1.7-2.3) 04/18/18 13:09 Iron 76 ug/dL (49-181) 04/21/18 13:30 TIBC 210 mcg/dL (250-450) L 04/21/18 13:30 Ferritin 236.2 ng/mL (13.0-400.0) 04/21/18 13:30 Total Bilirubin 0.60 mg/dL (0.1-1.2) 04/20/18 09:58 AST 20 units/L (5-40) 04/20/18 09:58 ALT 12 units/L (7-56) 04/20/18 09:58 Alkaline Phosphatase 46 units/L (35-129) 04/20/18 09:58 Total Creatine Kinase 34 units/L (55-170) L 04/18/18 13:09 CK-MB (CK-2) 2.0 ng/mL (0.0-4.0) 04/18/18 13:09 CK-MB (CK-2) Rel Index 5.8 (0-4) H 04/18/18 13:09 Troponin T 0.048 ng/mL (0.00-0.029) H D 04/18/18 13:09 NT-Pro-B Natriuret Pep 3465 pg/mL (0-900) H 04/20/18 09:58 Total Protein 4.7 g/dL (6.3-8.2) L 04/20/18 09:58 Albumin 2.5 g/dL (3.9-5) L 04/20/18 09:58 Albumin/Globulin Ratio 1.1 % 04/20/18 09:58 Triglycerides 69 mg/dL (2-149) 04/17/18 16:52 Cholesterol 89 mg/dL (50-199) 04/17/18 16:52 LDL Cholesterol Direct 46 mg/dL (50-130) L 04/17/18 16:52 HDL Cholesterol 35 mg/dL (40-59) L 04/17/18 16:52 Cholesterol/HDL Ratio 2.54 % 04/17/18 16:52 Vitamin B12 612.5 pg/mL (211-911) 04/21/18 13:30 Folate 8.55 ng/mL (7.3-26.0) 04/21/18 13:30 TSH 1.390 mlU/mL (0.270-4.200) 04/17/18 16:52 Free T4 1.51 ng/dL (0.76-1.46) H 04/17/18 16:52 Urine Color Straw (Yellow) 04/20/18 11:40 Urine Turbidity Clear (Clear) 04/20/18 11:40 Urine pH 6.0 (5.0-7.0) 04/20/18 11:40 Ur Specific [place] 1.005 (1.003-1.030) 04/20/18 11:40 Urine Protein <15 mg/dl mg/dL (Negative) 04/20/18 11:40 Urine Glucose (UA) Neg mg/dL (Negative) 04/20/18 11:40 Urine Ketones Neg mg/dL (Negative) 04/20/18 11:40 Urine Blood Neg (Negative) 04/20/18 11:40 Urine Nitrite Neg (Negative) 04/20/18 11:40 Urine Bilirubin Neg (Negative) 04/20/18 11:40 Urine Urobilinogen < 2.0 mg/dL (<2.0) 04/20/18 11:40 Ur Leukocyte Esterase Tr (Negative) 04/20/18 11:40 Urine WBC (Auto) 1.0 /HPF (0.0-6.0) 04/20/18 11:40 Urine RBC (Auto) 1.0 /HPF (0.0-6.0) 04/20/18 11:40 U Epithel Cells (Auto) < 1.0 /HPF (0-13.0) 04/20/18 11:40 Urine Bacteria (Auto) 1+ /HPF (Negative) 04/17/18 17:34 Urine Creatinine 13.1 mg/dL (0.1-20.0) 04/20/18 11:41 Urine Sodium 98 mmol/L 04/20/18 11:41 Fraction Sodium Excret 8.2 04/20/18 11:41 Blood Type A POSITIVE 04/20/18 19:00 Antibody Screen Negative 04/20/18 19:00 Crossmatch See Detail 04/20/18 19:00 Nutrition/Malnutrition Assess - Dietary Evaluation Nutrition/Malnutrition Findings: Nutrition Notes Start: 04/18/18 13:01 Freq: Status: Active Protocol: Document 04/18/18 13:02 CT (Rec: 04/18/18 13:51 CT [id number]) Co-Sign 04/18/18 13:02 LP Nutrition Notes Need for Assessment generated from: Low BMI Initial or Follow up Assessment Current Diagnosis CKD(stage I-IV) Coronary Artery Disease Diabetes Hypertension Heart Failure Other Pertinent Diagnosis COPD Current Diet Clear Liquid Diet Labs/Tests Glucose: 134 K: 2.9 BUN: 47 Pertinent Medications Insulin Height 5 ft 7 in Weight 47.99 kg [place] Body Weight (kg) 67.27 BMI 16.5 Weight Status Underweight Subjective/Other Information RD screen for low BMI. Pt soiled himself at time of visit. Unable to complete interview. Burn Absent Trauma Absent #1 Nutrition Diagnosis Inadequate energy intake Etiology increased energy requirements/ increased nutrient needs d/t prolonged catabolic illness. As Evidenced by Signs and Symptoms BMI 16.6 Is patient on ventilator? No Is Patient Ambulatory and/or Out of Bed No REE-([facility]-confined to bed) 1497.516 Kcal/Kg value to use for calculation 36 Approximate Energy Requirements Using 1728 kcal/Kg Additional Notes PRO: 58-67g PRO (1.2-1.4 g/kg) Fluid: 1 ml/kcal Nutrition Intervention Change Diet Order: Advance as medically feasible Add Supplement/Snack (indicate name/kcal Ensure Clear BID /protein ) Provides kCal: 480 Provides Protein (gm) 16 Goal #1 Diet Advancement Goal #2 Weight maintenance/gain Anticipated Discharge Needs: Consistent CHO/Renal Follow-Up By: 04/22/18 Additional Comments F/U: diet advancement, intakes - Attestation Statement I have reviewed and agreed w/ Malnutrition eval & tx plan: Yes
[2018-04-22] MEDS: PROTONIX PO SCH (21:48)
[2018-04-22] MEDS: NACL 0.9% 1000 ML 1,000 ML IV SCH (22:52)
[2018-04-22] MEDS: ZOFRAN IV PRN (23:59)
[2018-04-23 07:10] LABS: BUN/Creatinine Ratio 13; Blood Urea Nitrogen 12 mg/dL (9-20); Calcium 7.6 mg/dL (8.4-10.2); Hemolysis Index 13
--- NOTE | 2018-04-23 08:30 | Hem/Onc Progress Note ---
Assessment and Plan 1. The patient has a history of hepatitis C. At admission, platelet was 160s and the lowest was 57. He received platelet transfusion. LFTs are not abnormal. At this time, there is no nosebleed and the elevated INR may have had a role in the nosebleed, this may be a consumption coagulopathy causing low platelet. Fibrinogen is not very low. We will observe the patient's platelet trend. 2. Elevated INR secondary to Coumadin. The patient is being followed by primary. The question arises if at some time he can be changed to Eliquis 2.5. 3. Gastrointestinal bleed. GI team following the patient. 4. History of hypertension. 5. History of coronary artery disease. 6. History of congestive heart failure. 7. History of diabetes. 8. History of chronic kidney disease. 9. History of depression. 10. History of chronic obstructive pulmonary disease/asthma. 11. History of atrial fibrillation. 12. Bilateral above knee amputation. 13. I will follow the patient's platelet trend. At this time, we will observe the patient. 04/22 - plt 71 - will follow trend - d/w dr Veras 04/23 - clinically stable - will follow labs - Patient Problems (1) Thrombocytopenia Current Visit: Yes Status: Acute (2) Anemia Current Visit: Yes Status: Acute Qualifiers: Anemia type: iron deficiency Iron deficiency anemia type: chronic blood loss Qualified Code(s): D50.0 - Iron deficiency anemia secondary to blood loss (chronic) Subjective Date of service: 04/23/18 Principal diagnosis: feeling better Interval history: no bleeding - eating Objective - Constitutional Vitals: Last Vital Signs Temp 98.0 F 04/23/18 04:44 Pulse 96 H 04/23/18 04:44 Resp 20 04/23/18 04:44 BP 151/80 04/23/18 04:44 Pulse Ox 98 04/23/18 04:44 Pain Intensity (0-10): denies any pain General appearance: no acute distress Performance status: 3-limited selfcare - EENT Eyes: EOM intact ENT: clear oral mucosa Lymph node exam: right axillary, negative cervical - Neck Neck: normal ROM - Respiratory Respiratory effort: Positive: normal Respiratory: bilateral: CTA - Cardiovascular Heart Sounds: Present: S1 & S2 Extremities: normal temperature - Gastrointestinal General gastrointestinal: Present: soft, non-tender Rectal Exam: deferred - Genitourinary Male genitourinary: Present: deferred - Musculoskeletal Musculoskeletal: other (b/l AKA) - Neurologic Neurologic: other (moves arm) - Labs Lab Results: Laboratory Results - last 24 hr 04/22/18 04/22/18 04/22/18 12:08 16:37 21:37 Sodium Potassium Chloride Carbon Dioxide Anion Gap BUN Creatinine Estimated GFR BUN/Creatinine Ratio Glucose POC Glucose 143 H 156 H 128 H Calcium 04/23/18 04/23/18 05:41 06:27 Sodium 140 Potassium 3.8 Chloride 109.8 H Carbon Dioxide 18 L Anion Gap 16 BUN 12 Creatinine 0.9 Estimated GFR > 60 BUN/Creatinine Ratio 13 Glucose 123 H POC Glucose 109 H Calcium 7.6 L Medications & Allergies - Medications Allergies/Adverse Reactions: Allergies No Known Allergies Allergy (Verified 04/17/18 15:59) Home Medications: Home Medications Medication Instructions Recorded Confirmed Last Taken Type Acetaminophen 2 tab PO Q4H PRN MDD 3000 mg/day 04/22/18 04/22/18 Unknown History Albuterol Sulfate [Ventolin HFA] 2 puff IH Q4H PRN 04/22/18 04/22/18 Unknown History AtorvaSTATin [Lipitor] 20 mg PO QHS 04/22/18 04/22/18 Unknown History Carvedilol [Coreg] 3.125 mg PO BID 04/22/18 04/22/18 Unknown History Container,Empty [Nasal [place] 1 spray INNOSTRIL BID PRN 04/22/18 04/22/18 Unknown History Bottle] Docusate Sodium [Colace CAP] 1 tab PO TID 04/22/18 04/22/18 Unknown History Ferrous Gluconate 324 mg PO 3XW 04/22/18 04/22/18 Unknown History Lidocaine [Lidoderm] 1 each TP QAM 04/22/18 04/22/18 Unknown History Multivitamin [Multiple Vitamins] 1 each PO DAILY 04/22/18 04/22/18 Unknown History Nitroglycerin 0.4 mg SL Q5M PRN 04/22/18 04/22/18 Unknown History Pantoprazole [Protonix TAB] 40 mg PO BID #60 tablet 04/22/18 Unknown Rx Potassium Chloride [Klor-Con M10] 10 meq PO DAILY 04/22/18 04/22/18 Unknown History Sennosides [Senna Laxative] 2 tab PO BID 04/22/18 04/22/18 Unknown History Sodium Bicarbonate 2 tab PO DAILY 04/22/18 04/22/18 Unknown History Tamsulosin HCl [Flomax] 0.4 mg PO QHS 04/22/18 04/22/18 Unknown History Torsemide [Demadex] 10 mg PO QDAY 04/22/18 04/22/18 Unknown History Tramadol HCl [Ultram] 50 mg PO Q6H 04/22/18 04/22/18 Unknown History busPIRone [Buspar] 5 mg PO BID 04/22/18 04/22/18 Unknown History Active Medications: Generic Name Dose Route Start Last Admin Trade Name Freq PRN Reason Stop Dose Admin Acetaminophen 650 mg 04/17/18 22:36 04/22/18 22:51 Tylenol PO 650 mg Q4H PRN Administration Pain MILD(1-3)/Fever >100.5/SCHULZ Carvedilol 3.125 mg 04/18/18 22:00 04/22/18 21:48 Coreg PO 3.125 mg BID SUN Administration Dextrose 50 ml 04/17/18 22:36 D50w (25gm) Syringe IV PRN PRN Hypoglycemia Ceftriaxone Sodium 1 gm in 50 mls @ 100 mls/hr 04/18/18 10:00 04/22/18 10:33 Rocephin/Ns 1 Gm/50 Ml IV 100 mls/hr Q24HR SUN Administration Protocol Sodium Chloride 1,000 mls @ 50 mls/hr 04/19/18 12:00 04/22/18 22:52 Nacl 0.9% 1000 Ml IV 50 mls/hr DIRECT SUN Administration Insulin Human Lispro 0 unit 04/18/18 07:30 04/22/18 21:48 Humalog SUB-Q Not Given ACHS SUN Protocol Morphine Sulfate 2 mg 04/18/18 08:36 04/22/18 23:59 Morphine IV 2 mg Q4H PRN Administration Pain, Moderate (4-6) Ondansetron HCl 4 mg 04/17/18 22:36 04/22/18 23:59 Zofran IV 4 mg Q8H PRN Administration Nausea And Vomiting Pantoprazole Sodium 40 mg 04/22/18 22:00 04/22/18 21:48 Protonix PO 40 mg BID SUN Administration Potassium Chloride 10 meq 04/19/18 10:00 04/22/18 10:31 K-Dur PO 10 meq QDAY SUN Administration Sodium Chloride 10 ml 04/18/18 10:00 04/22/18 21:48 Sodium Chloride Flush Syringe 10 Ml IV 10 ml BID SUN Administration Sodium Chloride 10 ml 04/17/18 22:36 Sodium Chloride Flush Syringe 10 Ml IV PRN PRN LINE FLUSH
[2018-04-23] MEDS: HumaLOG SUB-Q SCH ×4 (08:52→21:36)
[2018-04-23] MEDS: MORPHINE IV PRN ×2 (09:58→21:35)
[2018-04-23] MEDS: ROCEPHIN/NS 1 GM/50 ML 1 GM/50 ML BAG IV SCH (09:58)
[2018-04-23] MEDS: PROTONIX PO SCH ×2 (09:59→21:35)
[2018-04-23] MEDS: K-DUR PO SCH (09:59)
[2018-04-23] MEDS: COREG PO SCH ×2 (09:59→21:35)
[2018-04-23] MEDS: SODIUM CHLORIDE FLUSH SYRINGE 10 ML IV SCH ×2 (10:02→21:37)
--- NOTE | 2018-04-23 11:40 | Progress Note ---
Assessment and Plan Cont Guideline-Directed cardiac medications as tolerated. S/p EGD, H/H stable. Per GI team, okay to resume anticoagulation if needed per cardiology recommendations in 1 week (resume on 04/29/2018). Pt has been on coumadin. He presented with supratherapeutic INR and reports that consistent monitoring of his INR was an issue at the facility he was living. Pt is a candidate for NOAC - Eliquis. Will plan to convert to Eliquis 5mg BID in 1 week per GI recs. Currently stable cardiac status. Nothing further to add from cardiac perspective at this time. Will sign off. Recommend follow up in our office with Dr. Berry within 3-5 days of hospital discharge ([phone]). The patient has been seen in conjunction with Dr. Mendez who agrees with the assessment and plan of care. - Patient Problems (1) Epistaxis Current Visit: Yes Status: Acute (2) Melena Current Visit: Yes Status: Acute (3) Severe anemia Current Visit: Yes Status: Acute (4) Supratherapeutic INR Current Visit: Yes Status: Acute (5) Acute on chronic HFrEF (heart failure with reduced ejection fraction) Current Visit: Yes Status: Acute (6) Ischemic cardiomyopathy Current Visit: Yes Status: Acute (7) CAD (coronary artery disease) Current Visit: Yes Status: Chronic Qualifiers: Coronary Disease-Associated Artery/Lesion type: [place] artery (8) Hx of CABG Current Visit: Yes Status: Chronic (9) AICD (automatic cardioverter/defibrillator) present Current Visit: Yes Status: Acute (10) PAF (paroxysmal atrial fibrillation) Current Visit: Yes Status: Chronic (11) H/O gastric ulcer Current Visit: Yes Status: Resolved (12) UTI (urinary tract infection) Current Visit: Yes Status: Acute (13) S/P AKA (above knee amputation) bilateral Current Visit: Yes Status: Acute (14) Diabetes mellitus Current Visit: Yes Status: Acute Subjective Date of service: 04/23/18 Principal diagnosis: GI bleed Interval history: pt resting in bed, no current cardiac complaints. in SR with PVCs overnight on telemetry. Objective Last Vital Signs Temp 98.5 F 04/23/18 08:31 Pulse 89 04/23/18 09:59 Resp 18 04/23/18 08:31 BP 142/84 04/23/18 09:59 Pulse Ox 98 04/23/18 04:44 - Physical Examination General: No Apparent Distress HEENT: Positive: EOMI, Normocephaly, Mucus Membranes Moist Neck: Positive: neck supple, trachea midline. Negative: JVD/HJR, Masses Cardiac: Positive: Reg Rate and Rhythm, S1/S2 Lungs: Positive: Decreased Breath Sounds Neuro: Positive: Grossly Intact Abdomen: Positive: Soft, Active Bowel Sounds. Negative: Tender Skin: Positive: Clear. Negative: Rash Musculoskeletal: Normal Range of Motion Extremities: Present: Other (s/p bilateral AKA). Absent: edema - Labs and Meds Comprehensive Metabolic Panel 04/23/18 Range/Units 06:27 Sodium 140 (137-145) mmol/L Potassium 3.8 (3.6-5.0) mmol/L Chloride 109.8 H (98-107) mmol/L Carbon Dioxide 18 L (22-30) mmol/L BUN 12 (9-20) mg/dL Creatinine 0.9 (0.8-1.5) mg/dL Glucose 123 H (75-100) mg/dL Calcium 7.6 L (8.4-10.2) mg/dL - Imaging and Cardiology EKG: image reviewed - EKG Sinus rhythms and dysrhythmias: sinus rhythm Repolarization changes or abnormalities: ST or T wave suggestive of ischemia
[2018-04-24] MEDS: MORPHINE IV PRN ×4 (03:57→19:54)
[2018-04-24 07:17] LABS: BUN/Creatinine Ratio 14; Blood Urea Nitrogen 11 mg/dL (9-20); Calcium 7.8 mg/dL (8.4-10.2); Hemolysis Index 7
[2018-04-24] MEDS: HumaLOG SUB-Q SCH ×4 (08:12→22:30)
--- NOTE | 2018-04-24 08:41 | Hem/Onc Progress Note ---
Assessment and Plan 1. The patient has a history of hepatitis C. At admission, platelet was 160s and the lowest was 57. He received platelet transfusion. LFTs are not abnormal. At this time, there is no nosebleed and the elevated INR may have had a role in the nosebleed, this may be a consumption coagulopathy causing low platelet. Fibrinogen is not very low. We will observe the patient's platelet trend. 2. Elevated INR secondary to Coumadin. The patient is being followed by primary. The question arises if at some time he can be changed to Eliquis 2.5. 3. Gastrointestinal bleed. GI team following the patient. 4. History of hypertension. 5. History of coronary artery disease. 6. History of congestive heart failure. 7. History of diabetes. 8. History of chronic kidney disease. 9. History of depression. 10. History of chronic obstructive pulmonary disease/asthma. 11. History of atrial fibrillation. 12. Bilateral above knee amputation. 13. I will follow the patient's platelet trend. At this time, we will observe the patient. 04/22 - plt 71 - will follow trend - d/w dr Veras 04/23 - clinically stable - will follow labs 04/24 - plt better - OP follow up - Patient Problems (1) Thrombocytopenia Current Visit: Yes Status: Acute (2) Anemia Current Visit: Yes Status: Acute Qualifiers: Anemia type: iron deficiency Iron deficiency anemia type: chronic blood loss Qualified Code(s): D50.0 - Iron deficiency anemia secondary to blood loss (chronic) Subjective Date of service: 04/24/18 Principal diagnosis: low plt Interval history: feeling better Objective - Constitutional Vitals: Last Vital Signs Temp 98.5 F 04/23/18 08:31 Pulse 91 H 04/23/18 20:00 Resp 18 04/23/18 10:00 BP 154/86 04/23/18 17:48 Pulse Ox 96 04/23/18 17:48 Pain Intensity (0-10): denies any pain General appearance: no acute distress Performance status: 3-limited selfcare - EENT Eyes: EOM intact ENT: clear oral mucosa Lymph node exam: negative cervical, negative supraclavicular - Neck Neck: normal ROM - Respiratory Respiratory effort: Positive: normal Respiratory: bilateral: CTA - Cardiovascular Heart Sounds: Present: S1 & S2 Extremities: No edema (arms) Extremity abnormal: other (b/l AKA) - Gastrointestinal General gastrointestinal: Present: soft, non-tender Rectal Exam: deferred - Genitourinary Male genitourinary: Present: deferred - Integumentary Integumentary: warm - Musculoskeletal Musculoskeletal: other (AKA) - Neurologic Neurologic: other (moves upper extremity) - Labs Lab Results: Laboratory Results - last 24 hr 04/23/18 04/23/18 04/23/18 12:27 17:49 20:52 Sodium Potassium Chloride Carbon Dioxide Anion Gap BUN Creatinine Estimated GFR BUN/Creatinine Ratio Glucose POC Glucose 106 H 160 H 177 H Calcium 04/24/18 04/24/18 05:31 06:40 Sodium 142 Potassium 3.6 Chloride 110.8 H Carbon Dioxide 20 L Anion Gap 15 BUN 11 Creatinine 0.8 Estimated GFR > 60 BUN/Creatinine Ratio 14 Glucose 102 H POC Glucose 101 Calcium 7.8 L Medications & Allergies - Medications Allergies/Adverse Reactions: Allergies No Known Allergies Allergy (Verified 04/17/18 15:59) Home Medications: Home Medications Medication Instructions Recorded Confirmed Last Taken Type Acetaminophen 2 tab PO Q4H PRN MDD 3000 mg/day 04/22/18 04/22/18 Unknown History Albuterol Sulfate [Ventolin HFA] 2 puff IH Q4H PRN 04/22/18 04/22/18 Unknown History AtorvaSTATin [Lipitor] 20 mg PO QHS 04/22/18 04/22/18 Unknown History Carvedilol [Coreg] 3.125 mg PO BID 04/22/18 04/22/18 Unknown History Container,Empty [Nasal [place] 1 spray INNOSTRIL BID PRN 04/22/18 04/22/18 Unknown History Bottle] Docusate Sodium [Colace CAP] 1 tab PO TID 04/22/18 04/22/18 Unknown History Ferrous Gluconate 324 mg PO 3XW 04/22/18 04/22/18 Unknown History Lidocaine [Lidoderm] 1 each TP QAM 04/22/18 04/22/18 Unknown History Multivitamin [Multiple Vitamins] 1 each PO DAILY 04/22/18 04/22/18 Unknown History Nitroglycerin 0.4 mg SL Q5M PRN 04/22/18 04/22/18 Unknown History Pantoprazole [Protonix TAB] 40 mg PO BID #60 tablet 04/22/18 Unknown Rx Potassium Chloride [Klor-Con M10] 10 meq PO DAILY 04/22/18 04/22/18 Unknown History Sennosides [Senna Laxative] 2 tab PO BID 04/22/18 04/22/18 Unknown History Sodium Bicarbonate 2 tab PO DAILY 04/22/18 04/22/18 Unknown History Tamsulosin HCl [Flomax] 0.4 mg PO QHS 04/22/18 04/22/18 Unknown History Torsemide [Demadex] 10 mg PO QDAY 04/22/18 04/22/18 Unknown History Tramadol HCl [Ultram] 50 mg PO Q6H 04/22/18 04/22/18 Unknown History busPIRone [Buspar] 5 mg PO BID 04/22/18 04/22/18 Unknown History Apixaban [Eliquis] 5 mg PO BID #60 tablet 04/24/18 Unknown Rx Carvedilol [Coreg] 3.125 mg PO BID tablet 04/24/18 Unknown Rx Lispro Insulin [Humalog] 0 unit SUB-Q ACHS units 04/24/18 Unknown Rx Potassium Chloride [K-Dur] 10 meq PO QDAY tablet 04/24/18 Unknown Rx Active Medications: Generic Name Dose Route Start Last Admin Trade Name Freq PRN Reason Stop Dose Admin Acetaminophen 650 mg 04/17/18 22:36 04/22/18 22:51 Tylenol PO 650 mg Q4H PRN Administration Pain MILD(1-3)/Fever >100.5/SCHULZ Carvedilol 3.125 mg 04/18/18 22:00 04/23/18 21:35 Coreg PO 3.125 mg BID SUN Administration Dextrose 50 ml 04/17/18 22:36 D50w (25gm) Syringe IV PRN PRN Hypoglycemia Ceftriaxone Sodium 1 gm in 50 mls @ 100 mls/hr 04/18/18 10:00 04/23/18 09:58 Rocephin/Ns 1 Gm/50 Ml IV 100 mls/hr Q24HR SUN Administration Protocol Sodium Chloride 1,000 mls @ 50 mls/hr 04/19/18 12:00 04/22/18 22:52 Nacl 0.9% 1000 Ml IV 50 mls/hr DIRECT SUN Administration Insulin Human Lispro 0 unit 04/18/18 07:30 04/24/18 08:12 Humalog SUB-Q Not Given ACHS [facility] Protocol Morphine Sulfate 2 mg 04/18/18 08:36 04/24/18 03:57 Morphine IV 2 mg Q4H PRN Administration Pain, Moderate (4-6) Ondansetron HCl 4 mg 04/17/18 22:36 04/22/18 23:59 Zofran IV 4 mg Q8H PRN Administration Nausea And Vomiting Pantoprazole Sodium 40 mg 04/22/18 22:00 04/23/18 21:35 Protonix PO 40 mg BID SUN Administration Potassium Chloride 10 meq 04/19/18 10:00 04/23/18 09:59 K-Dur PO 10 meq QDAY SUN Administration Sodium Chloride 10 ml 04/18/18 10:00 04/23/18 21:37 Sodium Chloride Flush Syringe 10 Ml IV 10 ml BID SUN Administration Sodium Chloride 10 ml 04/17/18 22:36 Sodium Chloride Flush Syringe 10 Ml IV PRN PRN LINE FLUSH
[2018-04-24] MEDS: ZOFRAN IV PRN (09:22)
[2018-04-24] MEDS: COREG PO SCH ×2 (09:22→21:37)
[2018-04-24] MEDS: K-DUR PO SCH (09:22)
[2018-04-24] MEDS: PROTONIX PO SCH ×2 (09:26→21:37)
[2018-04-24] MEDS: ROCEPHIN/NS 1 GM/50 ML 1 GM/50 ML BAG IV SCH (09:27)
[2018-04-24] MEDS: SODIUM CHLORIDE FLUSH SYRINGE 10 ML IV SCH ×2 (09:29→21:40)
--- NOTE | 2018-04-24 11:42 | Progress Note ---
Assessment and Plan Assessment and plan: Severe anemia due to acute blood loss from acute GI bleed and epistaxis Total 8 units PRBC transfused Coagulopathy . INR improved after FFP and Vitamin K Continue to hold Coumadin Acute GI bleed EGD revealed tear at GE junction s/p cautery Continue regular diet Epistaxis due to coagulopathy., resolved patient stated he was having bleeding with clots from nose Atrial fibrillation, Coumadin on hold due to active bleeding Thrombocytopenia. Transfused 1 unit previously. Platelets currently stable CAD No chest pain Diabetes mellitus type 2. Fingerstick glucose Acute on Chronic systolic heart failure. Lasix iv prn ZULLY due to ATN Now resolved Nephrology following Severe Malnutrition, Patient tolerating diet Depression UTI Continue on ceftriaxone for now and discontinue at discharge to nursing facility. Full code status Dispo. Patient medically stable, awaiting SNF placement. Aspirin and Eliquis to be started as outpatient in 1 week History Interval history: No new issues overnight Hospitalist Physical - Constitutional Vitals: Temp Pulse Resp BP Pulse Ox 98.2 F 75 20 141/69 98 04/24/18 09:02 04/24/18 09:22 04/24/18 09:02 04/24/18 09:22 04/24/18 09:02 General appearance: Present: no acute distress - EENT Eyes: Present: PERRL, EOM intact ENT: hearing intact, clear oral mucosa, dentition normal - Neck Neck: Present: supple, normal ROM - Respiratory Respiratory effort: normal Respiratory: bilateral: CTA - Cardiovascular Rhythm: regular Heart Sounds: Present: S1 & S2. Absent: gallop, rub - Extremities Extremities: no ischemia, No edema, Full ROM - Abdominal General gastrointestinal: soft, non-tender, non-distended, normal bowel sounds - Integumentary Integumentary: Present: clear, warm, dry - Neurologic Neurologic: CNII-XII intact, moves all extremities Results - Labs CBC & Chem 7: 04/22/18 05:12 04/24/18 06:40 Labs: Laboratory Last Values WBC 6.2 K/mm3 (4.5-11.0) 04/22/18 05:12 RBC 3.27 M/mm3 (3.65-5.03) L 04/22/18 05:12 Hgb 10.4 gm/dl (11.8-15.2) L 04/22/18 05:12 Hct 30.5 % (35.5-45.6) L 04/22/18 05:12 MCV 93 fl (84-94) 04/22/18 05:12 MCH 32 pg (28-32) 04/22/18 05:12 MCHC 34 % (32-34) 04/22/18 05:12 RDW 15.1 % (13.2-15.2) 04/22/18 05:12 Plt Count 71 K/mm3 (140-440) L 04/22/18 05:12 Lymph % (Auto) 21.2 % (13.4-35.0) 04/19/18 08:27 [place] % (Auto) 8.7 % (0.0-7.3) H 04/19/18 08:27 Eos % (Auto) 0.4 % (0.0-4.3) 04/19/18 08:27 Baso % (Auto) 0.4 % (0.0-1.8) 04/19/18 08:27 Lymph # 2.1 K/mm3 (1.2-5.4) 04/19/18 08:27 [place] # 0.9 K/mm3 (0.0-0.8) H 04/19/18 08:27 Eos # 0.0 K/mm3 (0.0-0.4) 04/19/18 08:27 Baso # 0.0 K/mm3 (0.0-0.1) 04/19/18 08:27 Seg Neutrophils % 69.3 % (40.0-70.0) 04/19/18 08:27 Seg Neutrophils # 6.8 K/mm3 (1.8-7.7) 04/19/18 08:27 PT 17.8 Sec. (12.2-14.9) H 04/21/18 06:19 INR 1.42 (0.87-1.13) H 04/21/18 06:19 APTT 31.8 Sec. (24.2-36.6) 04/21/18 13:30 Fibrinogen 202 mg/dl (211-480) L 04/21/18 13:30 D-Dimer 613.63 ng/mlDDU (0-234) H 04/17/18 16:52 Sodium 142 mmol/L (137-145) 04/24/18 06:40 Potassium 3.6 mmol/L (3.6-5.0) 04/24/18 06:40 Chloride 110.8 mmol/L (98-107) H 04/24/18 06:40 Carbon Dioxide 20 mmol/L (22-30) L 04/24/18 06:40 Anion Gap 15 mmol/L 04/24/18 06:40 BUN 11 mg/dL (9-20) 04/24/18 06:40 Creatinine 0.8 mg/dL (0.8-1.5) 04/24/18 06:40 Estimated GFR > 60 ml/min 04/24/18 06:40 BUN/Creatinine Ratio 14 % 04/24/18 06:40 Glucose 102 mg/dL (75-100) H 04/24/18 06:40 POC Glucose 101 (70-105) 04/24/18 05:31 Calcium 7.8 mg/dL (8.4-10.2) L 04/24/18 06:40 Magnesium 1.80 mg/dL (1.7-2.3) 04/18/18 13:09 Iron 76 ug/dL (49-181) 04/21/18 13:30 TIBC 210 mcg/dL (250-450) L 04/21/18 13:30 Ferritin 236.2 ng/mL (13.0-400.0) 04/21/18 13:30 Total Bilirubin 0.60 mg/dL (0.1-1.2) 04/20/18 09:58 AST 20 units/L (5-40) 04/20/18 09:58 ALT 12 units/L (7-56) 04/20/18 09:58 Alkaline Phosphatase 46 units/L (35-129) 04/20/18 09:58 Total Creatine Kinase 34 units/L (55-170) L 04/18/18 13:09 CK-MB (CK-2) 2.0 ng/mL (0.0-4.0) 04/18/18 13:09 CK-MB (CK-2) Rel Index 5.8 (0-4) H 04/18/18 13:09 Troponin T 0.048 ng/mL (0.00-0.029) H D 04/18/18 13:09 NT-Pro-B Natriuret Pep 3465 pg/mL (0-900) H 04/20/18 09:58 Total Protein 4.7 g/dL (6.3-8.2) L 04/20/18 09:58 Albumin 2.5 g/dL (3.9-5) L 04/20/18 09:58 Albumin/Globulin Ratio 1.1 % 04/20/18 09:58 Triglycerides 69 mg/dL (2-149) 04/17/18 16:52 Cholesterol 89 mg/dL (50-199) 04/17/18 16:52 LDL Cholesterol Direct 46 mg/dL (50-130) L 04/17/18 16:52 HDL Cholesterol 35 mg/dL (40-59) L 04/17/18 16:52 Cholesterol/HDL Ratio 2.54 % 04/17/18 16:52 Vitamin B12 612.5 pg/mL (211-911) 04/21/18 13:30 Folate 8.55 ng/mL (7.3-26.0) 04/21/18 13:30 TSH 1.390 mlU/mL (0.270-4.200) 04/17/18 16:52 Free T4 1.51 ng/dL (0.76-1.46) H 04/17/18 16:52 Urine Color Straw (Yellow) 04/20/18 11:40 Urine Turbidity Clear (Clear) 04/20/18 11:40 Urine pH 6.0 (5.0-7.0) 04/20/18 11:40 Ur Specific [place] 1.005 (1.003-1.030) 04/20/18 11:40 Urine Protein <15 mg/dl mg/dL (Negative) 04/20/18 11:40 Urine Glucose (UA) Neg mg/dL (Negative) 04/20/18 11:40 Urine Ketones Neg mg/dL (Negative) 04/20/18 11:40 Urine Blood Neg (Negative) 04/20/18 11:40 Urine Nitrite Neg (Negative) 04/20/18 11:40 Urine Bilirubin Neg (Negative) 04/20/18 11:40 Urine Urobilinogen < 2.0 mg/dL (<2.0) 04/20/18 11:40 Ur Leukocyte Esterase Tr (Negative) 04/20/18 11:40 Urine WBC (Auto) 1.0 /HPF (0.0-6.0) 04/20/18 11:40 Urine RBC (Auto) 1.0 /HPF (0.0-6.0) 04/20/18 11:40 U Epithel Cells (Auto) < 1.0 /HPF (0-13.0) 04/20/18 11:40 Urine Bacteria (Auto) 1+ /HPF (Negative) 04/17/18 17:34 Urine Creatinine 13.1 mg/dL (0.1-20.0) 04/20/18 11:41 Urine Sodium 98 mmol/L 04/20/18 11:41 Fraction Sodium Excret 8.2 04/20/18 11:41 Blood Type A POSITIVE 04/20/18 19:00 Antibody Screen Negative 04/20/18 19:00 Crossmatch See Detail 04/20/18 19:00 Nutrition/Malnutrition Assess - Dietary Evaluation Nutrition/Malnutrition Findings: Nutrition Notes Start: 04/18/18 13:01 Freq: Status: Active Protocol: Document 04/22/18 16:52 RM (Rec: 04/22/18 17:12 RM [id number]) Nutrition Notes Initial or Follow up Reassessment Current Diagnosis CKD(stage I-IV) Coronary Artery Disease Diabetes Hypertension Heart Failure Other Pertinent Diagnosis COPD, Bilat AKA, GI Bleed Current Diet Renal Labs/Tests Reviewed Pertinent Medications Reviewed Height 5 ft 4 in Weight 46.3 kg Usual Body Weight 54.55 kg Summers Body Weight (kg) 59.09 BMI 17.5 Weight change and time frame 31% wt loss X 3-4 days, likely d/t fluid change Subjective/Other Information Pt does not appear to be 5'7". Pt stated that before his amputations he was 5'4". Pt stated that MED ASST he was eating bites of his meals X 2 weeks. Pt stated that his appetite is good now and he eats all of his meals. Noted lunch at beside w/most eaten except for salad d/t lack of teeth. Pt declined offer of [facility] Soft diet. Stated UBW was 120 lbs 3-4 days ago. Noted slight temporal wasting. Percent of energy/protein needs met: 96%/100% Burn Absent Trauma Absent #2 Nutrition Diagnosis Malnutrition Etiology GI bleed As Evidenced by Signs and Symptoms pt statement that MED ASST he ate bites of his meals X 2 weeks, temporal wasting #1 Nutrition Diagnosis Inadequate energy intake As Evidenced by Signs and Symptoms pt meeting 96% of calorie and 100% protein needs Diagnosis Progress(for reassessment Resolved documentation) Is patient on ventilator? No Is Patient Ambulatory and/or Out of Bed No [facility] 1420.104 Kcal/Kg value to use for calculation 36 Approximate Energy Requirements Using 1667 kcal/Kg Additional Notes PRO: 58-67g PRO (1.2-1.4 g/kg) Fluid: 1 ml/kcal Nutrition Intervention Change Diet Order: Continue current Add Supplement/Snack (indicate name/kcal Nepro Mixed Valent[place], Butter /protein ) Pecan BID Provides kCal: 850 Provides Protein (gm) 38 Goal #1 Continue to meet at least 75% of calorie and protein needs via PO and ONS intakes Goal #2 Weight maintenance/gain Anticipated Discharge Needs: Renal Follow-Up By: 04/24/18 Additional Comments Follow for PO and ONS intakes
--- NOTE | 2018-04-24 11:51 | Discharge Summary ---
Providers - Providers Date of Admission: 04/17/18 18:25 Date of discharge: 04/24/18 Attending physician: VIRGINIA GOLDSMITH 04/18/18 01:04 Consult to Physician [CONS] Routine Comment: Consulting Provider: ANN MUÑOZ Physician Instructions: Reason For Exam: ab ce 04/18/18 13:49 Consult to Physician [CONS] Routine Comment: Consulting Provider: FARAZ SALMERON Physician Instructions: Reason For Exam: Severe anemia, On Coumadin, coagulopathy 04/19/18 09:55 Consult to Physician [CONS] Routine Comment: Consulting Provider: JUSTINE NAVARRO Physician Instructions: Reason For Exam: ZULLY 04/20/18 13:41 Consult to Physician [CONS] Routine Comment: Consulting Provider: GARRY ALVAREZ Physician Instructions: Reason For Exam: Thrombocytopenia 04/22/18 15:25 Occupational Therapy Evaluate and Treat [CONS] Routine Comment: need for self care assessment vs placement Reason For Exam: Eval/treat - Physical Therapy Evaluation and Treat [CONS] Routine Comment: Patient lives alone, needs placement Reason For Exam: Eval. ability to self transfer, bilateral AKA Primary care physician: ADALBERTO UP Hospitalization Reason for admission: acute blood loss anemia and epistaxis Condition: Fair Hospital course: 62-year-old man with a history of hypertension, coronary artery disease, CHF, diabetes, chronic kidney disease, depression, asthma, COPD, A. fib on Coumadin comes emergency room with complaints of multiple episodes of nosebleed for 2 consecutive days prior to admission. His serum creatinine was noted to be 1.3 on admission and increase as high as 1.7 during the hospitalization. He was also found to be severely anemic with a hemoglobin of 5.3. The patient required a total of 8 units of PRBCs and 4 units of fresh frozen plasma. He had an EGD done which showed active bleeding from gastroesophageal junction which was injected with epinephrine with good results. The patient was admitted with diagnosis of acute blood loss anemia secondary to epistaxis and GI bleed, coagulopathy secondary to supratherapeutic Coumadin, acute kidney injury secondary to ATN and acute on chronic systolic heart failure. The patient was seen by nephrology, hematology/oncology, cardiology and GI in consultation. The GI bleed and epistaxis resolved. Patient's H&H stabilized after transfusion. The coagulopathy resolved with fresh frozen plasma and vitamin K. The patient also received 1 unit of platelets for thrombocytopenia. GI and cardiology recommended resolution of anticoagulation with Eliquis 5mg BID starting on 04/29/18. Other complications during hospital stay included a UTI which was treated with Rocephin. Case management was consulted and arrangements were made for SNF placement. Dedicated discharge time 38 minutes. Disposition: - TO HOME OR SELFCARE Time spent for discharge: 38 - Discharge Diagnoses (1) AICD (automatic cardioverter/defibrillator) present Status: Acute (2) Anemia Status: Acute Qualifiers: Anemia type: iron deficiency Iron deficiency anemia type: chronic blood loss Qualified Code(s): D50.0 - Iron deficiency anemia secondary to blood loss (chronic) (3) Diabetes mellitus Status: Acute (4) Epistaxis Status: Acute (5) Hypokalemia Status: Acute (6) Ischemic cardiomyopathy Status: Acute (7) Melena Status: Acute (8) S/P AKA (above knee amputation) bilateral Status: Acute (9) Severe anemia Status: Acute (10) Supratherapeutic INR Status: Acute (11) Symptomatic anemia Status: Acute (12) Thrombocytopenia Status: Acute (13) UTI (urinary tract infection) Status: Acute (14) CAD (coronary artery disease) Status: Chronic Qualifiers: Coronary Disease-Associated Artery/Lesion type: [place] artery (15) Hx of CABG Status: Chronic (16) PAF (paroxysmal atrial fibrillation) Status: Chronic (17) H/O gastric ulcer Status: Resolved Core Measure Documentation - Palliative Care Palliative Care/ Comfort Measures: Not Applicable - Core Measures Any of the following diagnoses?: none Exam - Constitutional Vitals: Temp Pulse Resp BP Pulse Ox 98.2 F 75 20 141/69 98 04/24/18 09:02 04/24/18 09:22 04/24/18 09:02 04/24/18 09:22 04/24/18 09:02 General appearance: Present: no acute distress, well-nourished - EENT Eyes: Present: PERRL ENT: hearing intact, clear oral mucosa - Neck Neck: Present: supple, normal ROM - Respiratory Respiratory effort: normal Respiratory: bilateral: CTA - Cardiovascular Heart Sounds: Present: S1 & S2. Absent: rub, click - Extremities Extremities: pulses symmetrical, No edema Peripheral Pulses: within normal limits - Abdominal General gastrointestinal: Present: soft, non-tender, non-distended, normal bowel sounds Male genitourinary: Present: normal - Integumentary Integumentary: Present: clear, warm, dry - Musculoskeletal Musculoskeletal: gait normal, strength equal bilaterally - Psychiatric Psychiatric: appropriate mood/affect, intact judgment & insight - Neurologic Neurologic: CNII-XII intact, moves all extremities Plan Activity: advance as tolerated Weight Bearing Status: Non-Weight Bearing Diet: low fat, low cholesterol, low salt Additional Instructions: Do not start eliquis until 04/29/18 Follow up with: ADALBERTO UP MD [Primary Care Provider] - 7 Days JUSTICE EDUARDO MD [Staff Physician] - 7 Days KELSEY ESCOTO MD [Staff Physician] - 7 Days GARRY ALVAREZ MD [Staff Physician] - 7 Days HETAL BOWIE MD [Staff Physician] - 7 Days Prescriptions: Apixaban [Eliquis] 5 mg PO BID #60 tablet Pantoprazole [Protonix TAB] 40 mg PO BID #60 tablet
[2018-04-24 12:14] LABS: Basophils % (Auto) 0.5 % (0.0-1.8); Eosinophils # (Auto) 0.2 K/mm3 (0.0-0.4); Eosinophils % (Auto) 2.9 % (0.0-4.3); Hematocrit 30.8 % (35.5-45.6); Hemoglobin 10.4 gm/dl (11.8-15.2); Lymphocytes # (Auto) 1.1 K/mm3 (1.2-5.4); Lymphocytes % (Auto) 15.3 % (13.4-35.0); Mean Corpuscular HGB Conc 34 % (32-34); Mean Corpuscular Volume 94 fl (84-94); Monocytes # (Auto) 0.7 K/mm3 (0.0-0.8); Monocytes % (Auto) 9.5 % (0.0-7.3); Red Blood Count 3.29 M/mm3 (3.65-5.03); Red Cell Distribution Width 15.3 % (13.2-15.2)
[2018-04-24 12:32] LABS: Platelet Count 83 K/mm3 (140-440)
[2018-04-25] MEDS: MORPHINE IV PRN ×5 (00:27→21:44)
[2018-04-25 06:43] LABS: BUN/Creatinine Ratio 13; Blood Urea Nitrogen 10 mg/dL (9-20); Calcium 7.8 mg/dL (8.4-10.2); Hemolysis Index 13
[2018-04-25] MEDS: HumaLOG SUB-Q SCH ×4 (07:30→21:58)
[2018-04-25] MEDS: COREG PO SCH ×2 (09:49→21:56)
[2018-04-25] MEDS: ROCEPHIN/NS 1 GM/50 ML 1 GM/50 ML BAG IV SCH (09:49)
[2018-04-25] MEDS: SODIUM CHLORIDE FLUSH SYRINGE 10 ML IV SCH ×2 (09:50→21:45)
[2018-04-25] MEDS: K-DUR PO SCH (09:50)
[2018-04-25] MEDS: PROTONIX PO SCH ×2 (09:50→21:44)
--- NOTE | 2018-04-25 10:28 | Progress Note ---
Assessment and Plan Assessment and plan: Severe anemia due to acute blood loss from acute GI bleed and epistaxis Total 8 units PRBC transfused Coagulopathy . INR improved after FFP and Vitamin K Continue to hold Coumadin Acute GI bleed EGD revealed tear at GE junction s/p cautery Continue regular diet Epistaxis due to coagulopathy., resolved patient stated he was having bleeding with clots from nose Atrial fibrillation, Coumadin on hold due to active bleeding Thrombocytopenia. Transfused 1 unit previously. Platelets currently stable CAD No chest pain Diabetes mellitus type 2. Fingerstick glucose Acute on Chronic systolic heart failure. Lasix iv prn ZULLY due to ATN Now resolved Nephrology following Severe Malnutrition, Patient tolerating diet Depression UTI Continue on ceftriaxone for now and discontinue at discharge to nursing facility. Full code status Dispo. Patient medically stable, awaiting [facility] placement. Eliquis to be started as outpatient on 04/29/18 - Patient Problems (1) AICD (automatic cardioverter/defibrillator) present Current Visit: Yes Status: Acute (2) Anemia Current Visit: Yes Status: Acute Qualifiers: Anemia type: iron deficiency Iron deficiency anemia type: chronic blood loss Qualified Code(s): D50.0 - Iron deficiency anemia secondary to blood loss (chronic) (3) Diabetes mellitus Current Visit: Yes Status: Acute (4) Epistaxis Current Visit: Yes Status: Acute (5) Hypokalemia Current Visit: Yes Status: Acute (6) Ischemic cardiomyopathy Current Visit: Yes Status: Acute (7) Melena Current Visit: Yes Status: Acute (8) S/P AKA (above knee amputation) bilateral Current Visit: Yes Status: Acute (9) Severe anemia Current Visit: Yes Status: Acute (10) Supratherapeutic INR Current Visit: Yes Status: Acute (11) Symptomatic anemia Current Visit: Yes Status: Acute (12) Thrombocytopenia Current Visit: Yes Status: Acute (13) UTI (urinary tract infection) Current Visit: Yes Status: Acute (14) CAD (coronary artery disease) Current Visit: Yes Status: Chronic Qualifiers: Coronary Disease-Associated Artery/Lesion type: [place] artery (15) Hx of CABG Current Visit: Yes Status: Chronic (16) PAF (paroxysmal atrial fibrillation) Current Visit: Yes Status: Chronic (17) H/O gastric ulcer Current Visit: Yes Status: Resolved History Interval history: No new issues overnight Hospitalist Physical - Constitutional Vitals: Temp Pulse Resp BP Pulse Ox 97.5 F L 85 18 135/79 100 04/25/18 05:39 04/25/18 05:39 04/25/18 05:39 04/25/18 05:39 04/25/18 05:39 General appearance: Present: no acute distress, well-nourished - EENT Eyes: Present: PERRL, EOM intact ENT: hearing intact, clear oral mucosa, dentition normal - Neck Neck: Present: supple, normal ROM - Respiratory Respiratory effort: normal Respiratory: bilateral: CTA - Cardiovascular Rhythm: regular Heart Sounds: Present: S1 & S2. Absent: gallop, rub - Extremities Extremities: no ischemia, No edema, Full ROM - Abdominal General gastrointestinal: soft, non-tender, non-distended, normal bowel sounds - Integumentary Integumentary: Present: clear, warm, dry - Neurologic Neurologic: CNII-XII intact, moves all extremities Results - Labs CBC & Chem 7: 04/24/18 11:44 04/25/18 05:00 Labs: Laboratory Last Values WBC 6.9 K/mm3 (4.5-11.0) 04/24/18 11:44 RBC 3.29 M/mm3 (3.65-5.03) L 04/24/18 11:44 Hgb 10.4 gm/dl (11.8-15.2) L 04/24/18 11:44 Hct 30.8 % (35.5-45.6) L 04/24/18 11:44 MCV 94 fl (84-94) 04/24/18 11:44 MCH 32 pg (28-32) 04/24/18 11:44 MCHC 34 % (32-34) 04/24/18 11:44 RDW 15.3 % (13.2-15.2) H 04/24/18 11:44 Plt Count 83 K/mm3 (140-440) L 04/24/18 11:44 Lymph % (Auto) 15.3 % (13.4-35.0) 04/24/18 11:44 [place] % (Auto) 9.5 % (0.0-7.3) H 04/24/18 11:44 Eos % (Auto) 2.9 % (0.0-4.3) 04/24/18 11:44 Baso % (Auto) 0.5 % (0.0-1.8) 04/24/18 11:44 Lymph # 1.1 K/mm3 (1.2-5.4) L 04/24/18 11:44 [place] # 0.7 K/mm3 (0.0-0.8) 04/24/18 11:44 Eos # 0.2 K/mm3 (0.0-0.4) 04/24/18 11:44 Baso # 0.0 K/mm3 (0.0-0.1) 04/24/18 11:44 Seg Neutrophils % 71.8 % (40.0-70.0) H 04/24/18 11:44 Seg Neutrophils # 4.9 K/mm3 (1.8-7.7) 04/24/18 11:44 PT 17.8 Sec. (12.2-14.9) H 04/21/18 06:19 INR 1.42 (0.87-1.13) H 04/21/18 06:19 APTT 31.8 Sec. (24.2-36.6) 04/21/18 13:30 Fibrinogen 202 mg/dl (211-480) L 04/21/18 13:30 D-Dimer 613.63 ng/mlDDU (0-234) H 04/17/18 16:52 Sodium 139 mmol/L (137-145) 04/25/18 05:00 Potassium 3.8 mmol/L (3.6-5.0) 04/25/18 05:00 Chloride 109.9 mmol/L (98-107) H 04/25/18 05:00 Carbon Dioxide 19 mmol/L (22-30) L 04/25/18 05:00 Anion Gap 14 mmol/L 04/25/18 05:00 BUN 10 mg/dL (9-20) 04/25/18 05:00 Creatinine 0.8 mg/dL (0.8-1.5) 04/25/18 05:00 Estimated GFR > 60 ml/min 04/25/18 05:00 BUN/Creatinine Ratio 13 % 04/25/18 05:00 Glucose 55 mg/dL (75-100) L 04/25/18 05:00 POC Glucose 60 (70-105) L 04/25/18 08:01 Calcium 7.8 mg/dL (8.4-10.2) L 04/25/18 05:00 Magnesium 1.80 mg/dL (1.7-2.3) 04/18/18 13:09 Iron 76 ug/dL (49-181) 04/21/18 13:30 TIBC 210 mcg/dL (250-450) L 04/21/18 13:30 Ferritin 236.2 ng/mL (13.0-400.0) 04/21/18 13:30 Total Bilirubin 0.60 mg/dL (0.1-1.2) 04/20/18 09:58 AST 20 units/L (5-40) 04/20/18 09:58 ALT 12 units/L (7-56) 04/20/18 09:58 Alkaline Phosphatase 46 units/L (35-129) 04/20/18 09:58 Total Creatine Kinase 34 units/L (55-170) L 04/18/18 13:09 CK-MB (CK-2) 2.0 ng/mL (0.0-4.0) 04/18/18 13:09 CK-MB (CK-2) Rel Index 5.8 (0-4) H 04/18/18 13:09 Troponin T 0.048 ng/mL (0.00-0.029) H D 04/18/18 13:09 NT-Pro-B Natriuret Pep 3465 pg/mL (0-900) H 04/20/18 09:58 Total Protein 4.7 g/dL (6.3-8.2) L 04/20/18 09:58 Albumin 2.5 g/dL (3.9-5) L 04/20/18 09:58 Albumin/Globulin Ratio 1.1 % 04/20/18 09:58 Triglycerides 69 mg/dL (2-149) 04/17/18 16:52 Cholesterol 89 mg/dL (50-199) 04/17/18 16:52 LDL Cholesterol Direct 46 mg/dL (50-130) L 04/17/18 16:52 HDL Cholesterol 35 mg/dL (40-59) L 04/17/18 16:52 Cholesterol/HDL Ratio 2.54 % 04/17/18 16:52 Vitamin B12 612.5 pg/mL (211-911) 04/21/18 13:30 Folate 8.55 ng/mL (7.3-26.0) 04/21/18 13:30 TSH 1.390 mlU/mL (0.270-4.200) 04/17/18 16:52 Free T4 1.51 ng/dL (0.76-1.46) H 04/17/18 16:52 Urine Color Straw (Yellow) 04/20/18 11:40 Urine Turbidity Clear (Clear) 04/20/18 11:40 Urine pH 6.0 (5.0-7.0) 04/20/18 11:40 Ur Specific [place] 1.005 (1.003-1.030) 04/20/18 11:40 Urine Protein <15 mg/dl mg/dL (Negative) 04/20/18 11:40 Urine Glucose (UA) Neg mg/dL (Negative) 04/20/18 11:40 Urine Ketones Neg mg/dL (Negative) 04/20/18 11:40 Urine Blood Neg (Negative) 04/20/18 11:40 Urine Nitrite Neg (Negative) 04/20/18 11:40 Urine Bilirubin Neg (Negative) 04/20/18 11:40 Urine Urobilinogen < 2.0 mg/dL (<2.0) 04/20/18 11:40 Ur Leukocyte Esterase Tr (Negative) 04/20/18 11:40 Urine WBC (Auto) 1.0 /HPF (0.0-6.0) 04/20/18 11:40 Urine RBC (Auto) 1.0 /HPF (0.0-6.0) 04/20/18 11:40 U Epithel Cells (Auto) < 1.0 /HPF (0-13.0) 04/20/18 11:40 Urine Bacteria (Auto) 1+ /HPF (Negative) 04/17/18 17:34 Urine Creatinine 13.1 mg/dL (0.1-20.0) 04/20/18 11:41 Urine Sodium 98 mmol/L 04/20/18 11:41 Fraction Sodium Excret 8.2 04/20/18 11:41 Blood Type A POSITIVE 04/20/18 19:00 Antibody Screen Negative 04/20/18 19:00 Crossmatch See Detail 04/20/18 19:00 Nutrition/Malnutrition Assess - Dietary Evaluation Nutrition/Malnutrition Findings: Nutrition Notes Start: 04/18/18 13:01 Freq: Status: Active Protocol: Document 04/24/18 16:39 RM (Rec: 04/24/18 16:44 RM [id number]) Nutrition Notes Initial or Follow up Reassessment Current Diagnosis CKD(stage I-IV) Coronary Artery Disease Diabetes Hypertension Heart Failure Other Pertinent Diagnosis COPD, Bilat AKA, GI Bleed Current Diet Renal Labs/Tests Reviewed Pertinent Medications Reviewed Height 5 ft 4 in Weight 46.9 kg [place] Body Weight (kg) 59.09 BMI 17.7 Subjective/Other Information Pt stated that his appetite is good and that he is eating all of his meals. Also stated that he is drinking the Nepro as a snack before bedtime. Percent of energy/protein needs met: 100%/100% Burn Absent Trauma Absent #2 Nutrition Diagnosis Malnutrition Diagnosis Progress(for reassessment Continues documentation) Is patient on ventilator? No Is Patient Ambulatory and/or Out of Bed No REE-([facility]-confined to bed) 1427.292 Kcal/Kg value to use for calculation 36 Approximate Energy Requirements Using 1688 kcal/Kg Calculation Used for Recommendations Kcal/kg Additional Notes PRO: 58-67g PRO (1.2-1.4 g/kg) Fluid: 1 ml/kcal Nutrition Intervention Change Diet Order: Continue current Add Supplement/Snack (indicate name/kcal Nepro Mixed [place], Butter /protein ) Pecan BID Provides kCal: 850 Provides Protein (gm) 38 Goal #1 Continue to meet at least 75% of calorie and protein needs via PO and ONS intakes Goal #2 Weight maintenance/gain Anticipated Discharge Needs: Renal Follow-Up By: 05/01/18 Additional Comments Follow for PO and ONS intakes
--- NOTE | 2018-04-25 13:54 | Hem/Onc Progress Note ---
Assessment and Plan 1. The patient has a history of hepatitis C. At admission, platelet was 160s and the lowest was 57. He received platelet transfusion. LFTs are not abnormal. At this time, there is no nosebleed and the elevated INR may have had a role in the nosebleed, this may be a consumption coagulopathy causing low platelet. Fibrinogen is not very low. We will observe the patient's platelet trend. 2. Elevated INR secondary to Coumadin. The patient is being followed by primary. The question arises if at some time he can be changed to Eliquis 2.5. 3. Gastrointestinal bleed. GI team following the patient. 4. History of hypertension. 5. History of coronary artery disease. 6. History of congestive heart failure. 7. History of diabetes. 8. History of chronic kidney disease. 9. History of depression. 10. History of chronic obstructive pulmonary disease/asthma. 11. History of atrial fibrillation. 12. Bilateral above knee amputation. 13. I will follow the patient's platelet trend. At this time, we will observe the patient. 04/22 - plt 71 - will follow trend - d/w dr Veras 04/23 - clinically stable - will follow labs 04/24 - plt better - OP follow up 04/25 - pt doing good - plt were improving - will follow as OP pt says waiting for placement - Patient Problems (1) Thrombocytopenia Current Visit: Yes Status: Acute (2) Anemia Current Visit: Yes Status: Acute Qualifiers: Anemia type: iron deficiency Iron deficiency anemia type: chronic blood loss Qualified Code(s): D50.0 - Iron deficiency anemia secondary to blood loss (chronic) Subjective Date of service: 04/25/18 Principal diagnosis: low platelets Objective - Constitutional Vitals: Last Vital Signs Temp 99.2 F 04/25/18 11:23 Pulse 86 04/25/18 11:23 Resp 18 04/25/18 11:23 BP 130/66 04/25/18 11:23 Pulse Ox 100 04/25/18 11:23 Pain Intensity (0-10): denies any pain General appearance: no acute distress Performance status: 3-limited selfcare - EENT Eyes: EOM intact ENT: clear oral mucosa Lymph node exam: negative cervical, negative supraclavicular - Neck Neck: normal ROM - Respiratory Respiratory effort: Positive: normal Respiratory: bilateral: CTA - Cardiovascular Heart Sounds: Present: S1 & S2 Extremity abnormal: other (b/l AKA) - Gastrointestinal General gastrointestinal: Present: soft, non-tender, hernia (nsmall - non obstructed) Rectal Exam: deferred - Genitourinary Male genitourinary: Present: deferred - Integumentary Integumentary: warm - Musculoskeletal Musculoskeletal: other (arm strength good - b/l AKA) - Psychiatric Psychiatric: appropriate mood/affect - Labs Lab Results: Laboratory Results - last 24 hr 04/24/18 04/24/18 04/25/18 16:46 21:58 05:00 Sodium 139 Potassium 3.8 Chloride 109.9 H Carbon Dioxide 19 L Anion Gap 14 BUN 10 Creatinine 0.8 Estimated GFR > 60 BUN/Creatinine Ratio 13 Glucose 55 L POC Glucose 141 H 181 H Calcium 7.8 L 04/25/18 04/25/18 08:01 11:27 Sodium Potassium Chloride Carbon Dioxide Anion Gap BUN Creatinine Estimated GFR BUN/Creatinine Ratio Glucose POC Glucose 60 L 111 H Calcium Medications & Allergies - Medications Allergies/Adverse Reactions: Allergies No Known Allergies Allergy (Verified 04/17/18 15:59) Home Medications: Home Medications Medication Instructions Recorded Confirmed Last Taken Type Acetaminophen 2 tab PO Q4H PRN MDD 3000 mg/day 04/22/18 04/22/18 Unknown History Albuterol Sulfate [Ventolin HFA] 2 puff IH Q4H PRN 04/22/18 04/22/18 Unknown History AtorvaSTATin [Lipitor] 20 mg PO QHS 04/22/18 04/22/18 Unknown History Carvedilol [Coreg] 3.125 mg PO BID 04/22/18 04/22/18 Unknown History Container,Empty [Nasal [place] 1 spray INNOSTRIL BID PRN 04/22/18 04/22/18 Unknown History Bottle] Docusate Sodium [Colace CAP] 1 tab PO TID 04/22/18 04/22/18 Unknown History Ferrous Gluconate 324 mg PO 3XW 04/22/18 04/22/18 Unknown History Lidocaine [Lidoderm] 1 each TP QAM 04/22/18 04/22/18 Unknown History Multivitamin [Multiple Vitamins] 1 each PO DAILY 04/22/18 04/22/18 Unknown History Nitroglycerin 0.4 mg SL Q5M PRN 04/22/18 04/22/18 Unknown History Pantoprazole [Protonix TAB] 40 mg PO BID #60 tablet 04/22/18 Unknown Rx Potassium Chloride [Klor-Con M10] 10 meq PO DAILY 04/22/18 04/22/18 Unknown History Sennosides [Senna Laxative] 2 tab PO BID 04/22/18 04/22/18 Unknown History Sodium Bicarbonate 2 tab PO DAILY 04/22/18 04/22/18 Unknown History Tamsulosin HCl [Flomax] 0.4 mg PO QHS 04/22/18 04/22/18 Unknown History Torsemide [Demadex] 10 mg PO QDAY 04/22/18 04/22/18 Unknown History Tramadol HCl [Ultram] 50 mg PO Q6H 04/22/18 04/22/18 Unknown History busPIRone [Buspar] 5 mg PO BID 04/22/18 04/22/18 Unknown History Apixaban [Eliquis] 5 mg PO BID #60 tablet 04/24/18 Unknown Rx Carvedilol [Coreg] 3.125 mg PO BID tablet 04/24/18 Unknown Rx Lispro Insulin [Humalog] 0 unit SUB-Q ACHS units 04/24/18 Unknown Rx Potassium Chloride [K-Dur] 10 meq PO QDAY tablet 04/24/18 Unknown Rx Active Medications: Generic Name Dose Route Start Last Admin Trade Name Freq PRN Reason Stop Dose Admin Acetaminophen 650 mg 04/17/18 22:36 04/22/18 22:51 Tylenol PO 650 mg Q4H PRN Administration Pain MILD(1-3)/Fever >100.5/SCHULZ Carvedilol 3.125 mg 04/18/18 22:00 04/25/18 09:49 Coreg PO 3.125 mg BID SUN Administration Dextrose 50 ml 04/17/18 22:36 D50w (25gm) Syringe IV PRN PRN Hypoglycemia Ceftriaxone Sodium 1 gm in 50 mls @ 100 mls/hr 04/18/18 10:00 04/25/18 09:49 Rocephin/Ns 1 Gm/50 Ml IV 100 mls/hr Q24HR SUN Administration Protocol Sodium Chloride 1,000 mls @ 50 mls/hr 04/19/18 12:00 04/22/18 22:52 Nacl 0.9% 1000 Ml IV 50 mls/hr DIRECT SUN Administration Insulin Human Lispro 0 unit 04/18/18 07:30 04/25/18 11:30 Humalog SUB-Q Not Given ACHS [facility] Protocol Morphine Sulfate 2 mg 04/18/18 08:36 04/25/18 09:53 Morphine IV 2 mg Q4H PRN Administration Pain, Moderate (4-6) Ondansetron HCl 4 mg 04/17/18 22:36 04/24/18 09:22 Zofran IV 4 mg Q8H PRN Administration Nausea And Vomiting Pantoprazole Sodium 40 mg 04/22/18 22:00 04/25/18 09:50 Protonix PO 40 mg BID SUN Administration Potassium Chloride 10 meq 04/19/18 10:00 04/25/18 09:50 K-Dur PO 10 meq QDAY SUN Administration Sodium Chloride 10 ml 04/18/18 10:00 04/25/18 09:50 Sodium Chloride Flush Syringe 10 Ml IV 10 ml BID SUN Administration Sodium Chloride 10 ml 04/17/18 22:36 Sodium Chloride Flush Syringe 10 Ml IV PRN PRN LINE FLUSH
[2018-04-26] MEDS: MORPHINE IV PRN ×2 (03:24→10:53)
--- NOTE | 2018-04-26 08:26 | Hem/Onc Progress Note ---
Assessment and Plan 1. The patient has a history of hepatitis C. At admission, platelet was 160s and the lowest was 57. He received platelet transfusion. LFTs are not abnormal. At this time, there is no nosebleed and the elevated INR may have had a role in the nosebleed, this may be a consumption coagulopathy causing low platelet. Fibrinogen is not very low. We will observe the patient's platelet trend. 2. Elevated INR secondary to Coumadin. The patient is being followed by primary. The question arises if at some time he can be changed to Eliquis 2.5. 3. Gastrointestinal bleed. GI team following the patient. 4. History of hypertension. 5. History of coronary artery disease. 6. History of congestive heart failure. 7. History of diabetes. 8. History of chronic kidney disease. 9. History of depression. 10. History of chronic obstructive pulmonary disease/asthma. 11. History of atrial fibrillation. 12. Bilateral above knee amputation. 13. I will follow the patient's platelet trend. At this time, we will observe the patient. 04/22 - plt 71 - will follow trend - d/w dr Veras 04/23 - clinically stable - will follow labs 04/24 - plt better - OP follow up 04/25 - pt doing good - plt were improving - will follow as OP pt says waiting for placement 04/26 - no bleeding - anticoag restart an option - Patient Problems (1) Thrombocytopenia Current Visit: Yes Status: Acute (2) Anemia Current Visit: Yes Status: Acute Qualifiers: Anemia type: iron deficiency Iron deficiency anemia type: chronic blood loss Qualified Code(s): D50.0 - Iron deficiency anemia secondary to blood loss (chronic) Subjective Date of service: 04/26/18 Principal diagnosis: low plt Interval history: h/o cough Objective - Constitutional Vitals: Last Vital Signs Temp 98.2 F 04/26/18 05:49 Pulse 90 04/26/18 05:49 Resp 18 04/26/18 05:49 BP 142/68 04/26/18 05:49 Pulse Ox 100 04/26/18 05:49 Pain Intensity (0-10): denies any pain General appearance: no acute distress Performance status: 3-limited selfcare - EENT Eyes: EOM intact ENT: clear oral mucosa Lymph node exam: negative cervical - Neck Neck: normal ROM - Respiratory Respiratory effort: Positive: normal Respiratory: bilateral: CTA - Cardiovascular Heart Sounds: Present: S1 & S2 Extremities: No edema - Gastrointestinal General gastrointestinal: Present: soft, non-tender Rectal Exam: deferred - Genitourinary Male genitourinary: Present: deferred - Integumentary Integumentary: warm - Musculoskeletal Musculoskeletal: other (b/l AKA) - Neurologic Neurologic: other (b/l AKA) - Psychiatric Psychiatric: appropriate mood/affect - Labs Lab Results: Laboratory Results - last 24 hr 04/25/18 04/25/18 04/25/18 11:27 16:29 21:41 POC Glucose 111 H 120 H 223 H 04/26/18 08:05 POC Glucose 72 Medications & Allergies - Medications Allergies/Adverse Reactions: Allergies No Known Allergies Allergy (Verified 04/17/18 15:59) Home Medications: Home Medications Medication Instructions Recorded Confirmed Last Taken Type Acetaminophen 2 tab PO Q4H PRN MDD 3000 mg/day 04/22/18 04/22/18 Unknown History Albuterol Sulfate [Ventolin HFA] 2 puff IH Q4H PRN 04/22/18 04/22/18 Unknown His tory AtorvaSTATin [Lipitor] 20 mg PO QHS 04/22/18 04/22/18 Unknown History Carvedilol [Coreg] 3.125 mg PO BID 04/22/18 04/22/18 Unknown History Container,Empty [Nasal [place] 1 spray INNOSTRIL BID PRN 04/22/18 04/22/18 Unknown History Bottle] Docusate Sodium [Colace CAP] 1 tab PO TID 04/22/18 04/22/18 Unknown History Ferrous Gluconate 324 mg PO 3XW 04/22/18 04/22/18 Unknown History Lidocaine [Lidoderm] 1 each TP QAM 04/22/18 04/22/18 Unknown History Multivitamin [Multiple Vitamins] 1 each PO DAILY 04/22/18 04/22/18 Unknown History Nitroglycerin 0.4 mg SL Q5M PRN 04/22/18 04/22/18 Unknown History Pantoprazole [Protonix TAB] 40 mg PO BID #60 tablet 04/22/18 Unknown Rx Potassium Chloride [Klor-Con M10] 10 meq PO DAILY 04/22/18 04/22/18 Unknown History Sennosides [Senna Laxative] 2 tab PO BID 04/22/18 04/22/18 Unknown History Sodium Bicarbonate 2 tab PO DAILY 04/22/18 04/22/18 Unknown History Tamsulosin HCl [Flomax] 0.4 mg PO QHS 04/22/18 04/22/18 Unknown History Torsemide [Demadex] 10 mg PO QDAY 04/22/18 04/22/18 Unknown History Tramadol HCl [Ultram] 50 mg PO Q6H 04/22/18 04/22/18 Unknown History busPIRone [Buspar] 5 mg PO BID 04/22/18 04/22/18 Unknown History Apixaban [Eliquis] 5 mg PO BID #60 tablet 04/24/18 Unknown Rx Carvedilol [Coreg] 3.125 mg PO BID tablet 04/24/18 Unknown Rx Lispro Insulin [Humalog] 0 unit SUB-Q ACHS units 04/24/18 Unknown Rx Potassium Chloride [K-Dur] 10 meq PO QDAY tablet 04/24/18 Unknown Rx Active Medications: Generic Name Dose Route Start Last Admin Trade Name Freq PRN Reason Stop Dose Admin Acetaminophen 650 mg 04/17/18 22:36 04/22/18 22:51 Tylenol PO 650 mg Q4H PRN Administration Pain MILD(1-3)/Fever >100.5/SCHULZ Carvedilol 3.125 mg 04/18/18 22:00 04/25/18 21:56 Coreg PO 3.125 mg BID SUN Administration Dextrose 50 ml 04/17/18 22:36 D50w (25gm) Syringe IV PRN PRN Hypoglycemia Ceftriaxone Sodium 1 gm in 50 mls @ 100 mls/hr 04/18/18 10:00 04/25/18 09:49 Rocephin/Ns 1 Gm/50 Ml IV 100 mls/hr Q24HR SUN Administration Protocol Sodium Chloride 1,000 mls @ 50 mls/hr 04/19/18 12:00 04/22/18 22:52 Nacl 0.9% 1000 Ml IV 50 mls/hr DIRECT SUN Administration Insulin Human Lispro 0 unit 04/18/18 07:30 04/25/18 21:58 Humalog SUB-Q 4 unit ACHS SUN Administration Protocol Morphine Sulfate 2 mg 04/18/18 08:36 04/26/18 03:24 Morphine IV 2 mg Q4H PRN Administration Pain, Moderate (4-6) Ondansetron HCl 4 mg 04/17/18 22:36 04/24/18 09:22 Zofran IV 4 mg Q8H PRN Administration Nausea And Vomiting Pantoprazole Sodium 40 mg 04/22/18 22:00 04/25/18 21:44 Protonix PO 40 mg BID SUN Administration Potassium Chloride 10 meq 04/19/18 10:00 04/25/18 09:50 K-Dur PO 10 meq QDAY SUN Administration Sodium Chloride 10 ml 04/18/18 10:00 04/25/18 21:45 Sodium Chloride Flush Syringe 10 Ml IV 10 ml BID SUN Administration Sodium Chloride 10 ml 04/17/18 22:36 Sodium Chloride Flush Syringe 10 Ml IV PRN PRN LINE FLUSH
[2018-04-26] MEDS: HumaLOG SUB-Q SCH ×2 (09:33→12:11)
--- NOTE | 2018-04-26 10:11 | Progress Note ---
Assessment and Plan Assessment and plan: Severe anemia due to acute blood loss from acute GI bleed and epistaxis Total 8 units PRBC transfused Coagulopathy . INR improved after FFP and Vitamin K Continue to hold Coumadin Acute GI bleed EGD revealed tear at GE junction s/p cautery Continue regular diet Epistaxis due to coagulopathy., resolved patient stated he was having bleeding with clots from nose Atrial fibrillation, Coumadin on hold due to active bleeding Thrombocytopenia. Transfused 1 unit previously. Platelets currently stable CAD No chest pain Diabetes mellitus type 2. Fingerstick glucose Acute on Chronic systolic heart failure. Lasix iv prn ZULLY due to ATN Now resolved Nephrology following Severe Malnutrition, Patient tolerating diet Depression UTI Continue on ceftriaxone for now and discontinue at discharge to nursing facility. Full code status Dispo. Patient medically stable, awaiting [facility] placement. Eliquis to be started as outpatient on 04/29/18 - Patient Problems (1) AICD (automatic cardioverter/defibrillator) present Current Visit: Yes Status: Acute (2) Anemia Current Visit: Yes Status: Acute Qualifiers: Anemia type: iron deficiency Iron deficiency anemia type: chronic blood loss Qualified Code(s): D50.0 - Iron deficiency anemia secondary to blood loss (chronic) (3) Diabetes mellitus Current Visit: Yes Status: Acute (4) Epistaxis Current Visit: Yes Status: Acute (5) Hypokalemia Current Visit: Yes Status: Acute (6) Ischemic cardiomyopathy Current Visit: Yes Status: Acute (7) Melena Current Visit: Yes Status: Acute (8) S/P AKA (above knee amputation) bilateral Current Visit: Yes Status: Acute (9) Severe anemia Current Visit: Yes Status: Acute (10) Supratherapeutic INR Current Visit: Yes Status: Acute (11) Symptomatic anemia Current Visit: Yes Status: Acute (12) Thrombocytopenia Current Visit: Yes Status: Acute (13) UTI (urinary tract infection) Current Visit: Yes Status: Acute (14) CAD (coronary artery disease) Current Visit: Yes Status: Chronic Qualifiers: Coronary Disease-Associated Artery/Lesion type: [place] artery (15) Hx of CABG Current Visit: Yes Status: Chronic (16) PAF (paroxysmal atrial fibrillation) Current Visit: Yes Status: Chronic (17) H/O gastric ulcer Current Visit: Yes Status: Resolved History Interval history: No new issues overnight. Patient complains of cough Hospitalist Physical - Constitutional Vitals: Temp Pulse Resp BP Pulse Ox 98.2 F 90 18 142/68 100 04/26/18 05:49 04/26/18 05:49 04/26/18 05:49 04/26/18 05:49 04/26/18 05:49 General appearance: Present: no acute distress, well-nourished - EENT Eyes: Present: PERRL, EOM intact ENT: hearing intact, clear oral mucosa, dentition normal - Neck Neck: Present: supple, normal ROM - Respiratory Respiratory effort: normal Respiratory: bilateral: CTA - Cardiovascular Rhythm: regular Heart Sounds: Present: S1 & S2. Absent: gallop, rub - Extremities Extremities: no ischemia, No edema, Full ROM - Abdominal General gastrointestinal: soft, non-tender, non-distended, normal bowel sounds - Integumentary Integumentary: Present: clear, warm, dry - Neurologic Neurologic: CNII-XII intact, moves all extremities Results - Labs CBC & Chem 7: 04/24/18 11:44 04/25/18 05:00 Labs: Laboratory Last Values WBC 6.9 K/mm3 (4.5-11.0) 04/24/18 11:44 RBC 3.29 M/mm3 (3.65-5.03) L 04/24/18 11:44 Hgb 10.4 gm/dl (11.8-15.2) L 04/24/18 11:44 Hct 30.8 % (35.5-45.6) L 04/24/18 11:44 MCV 94 fl (84-94) 04/24/18 11:44 MCH 32 pg (28-32) 04/24/18 11:44 MCHC 34 % (32-34) 04/24/18 11:44 RDW 15.3 % (13.2-15.2) H 04/24/18 11:44 Plt Count 83 K/mm3 (140-440) L 04/24/18 11:44 Lymph % (Auto) 15.3 % (13.4-35.0) 04/24/18 11:44 [place] % (Auto) 9.5 % (0.0-7.3) H 04/24/18 11:44 Eos % (Auto) 2.9 % (0.0-4.3) 04/24/18 11:44 Baso % (Auto) 0.5 % (0.0-1.8) 04/24/18 11:44 Lymph # 1.1 K/mm3 (1.2-5.4) L 04/24/18 11:44 [place] # 0.7 K/mm3 (0.0-0.8) 04/24/18 11:44 Eos # 0.2 K/mm3 (0.0-0.4) 04/24/18 11:44 Baso # 0.0 K/mm3 (0.0-0.1) 04/24/18 11:44 Seg Neutrophils % 71.8 % (40.0-70.0) H 04/24/18 11:44 Seg Neutrophils # 4.9 K/mm3 (1.8-7.7) 04/24/18 11:44 PT 17.8 Sec. (12.2-14.9) H 04/21/18 06:19 INR 1.42 (0.87-1.13) H 04/21/18 06:19 APTT 31.8 Sec. (24.2-36.6) 04/21/18 13:30 Fibrinogen 202 mg/dl (211-480) L 04/21/18 13:30 D-Dimer 613.63 ng/mlDDU (0-234) H 04/17/18 16:52 Sodium 139 mmol/L (137-145) 04/25/18 05:00 Potassium 3.8 mmol/L (3.6-5.0) 04/25/18 05:00 Chloride 109.9 mmol/L (98-107) H 04/25/18 05:00 Carbon Dioxide 19 mmol/L (22-30) L 04/25/18 05:00 Anion Gap 14 mmol/L 04/25/18 05:00 BUN 10 mg/dL (9-20) 04/25/18 05:00 Creatinine 0.8 mg/dL (0.8-1.5) 04/25/18 05:00 Estimated GFR > 60 ml/min 04/25/18 05:00 BUN/Creatinine Ratio 13 % 04/25/18 05:00 Glucose 55 mg/dL (75-100) L 04/25/18 05:00 POC Glucose 72 (70-105) 04/26/18 08:05 Calcium 7.8 mg/dL (8.4-10.2) L 04/25/18 05:00 Magnesium 1.80 mg/dL (1.7-2.3) 04/18/18 13:09 Iron 76 ug/dL (49-181) 04/21/18 13:30 TIBC 210 mcg/dL (250-450) L 04/21/18 13:30 Ferritin 236.2 ng/mL (13.0-400.0) 04/21/18 13:30 Total Bilirubin 0.60 mg/dL (0.1-1.2) 04/20/18 09:58 AST 20 units/L (5-40) 04/20/18 09:58 ALT 12 units/L (7-56) 04/20/18 09:58 Alkaline Phosphatase 46 units/L (35-129) 04/20/18 09:58 Total Creatine Kinase 34 units/L (55-170) L 04/18/18 13:09 CK-MB (CK-2) 2.0 ng/mL (0.0-4.0) 04/18/18 13:09 CK-MB (CK-2) Rel Index 5.8 (0-4) H 04/18/18 13:09 Troponin T 0.048 ng/mL (0.00-0.029) H D 04/18/18 13:09 NT-Pro-B Natriuret Pep 3465 pg/mL (0-900) H 04/20/18 09:58 Total Protein 4.7 g/dL (6.3-8.2) L 04/20/18 09:58 Albumin 2.5 g/dL (3.9-5) L 04/20/18 09:58 Albumin/Globulin Ratio 1.1 % 04/20/18 09:58 Triglycerides 69 mg/dL (2-149) 04/17/18 16:52 Cholesterol 89 mg/dL (50-199) 04/17/18 16:52 LDL Cholesterol Direct 46 mg/dL (50-130) L 04/17/18 16:52 HDL Cholesterol 35 mg/dL (40-59) L 04/17/18 16:52 Cholesterol/HDL Ratio 2.54 % 04/17/18 16:52 Vitamin B12 612.5 pg/mL (211-911) 04/21/18 13:30 Folate 8.55 ng/mL (7.3-26.0) 04/21/18 13:30 TSH 1.390 mlU/mL (0.270-4.200) 04/17/18 16:52 Free T4 1.51 ng/dL (0.76-1.46) H 04/17/18 16:52 Urine Color Straw (Yellow) 04/20/18 11:40 Urine Turbidity Clear (Clear) 04/20/18 11:40 Urine pH 6.0 (5.0-7.0) 04/20/18 11:40 Ur Specific [place] 1.005 (1.003-1.030) 04/20/18 11:40 Urine Protein <15 mg/dl mg/dL (Negative) 04/20/18 11:40 Urine Glucose (UA) Neg mg/dL (Negative) 04/20/18 11:40 Urine Ketones Neg mg/dL (Negative) 04/20/18 11:40 Urine Blood Neg (Negative) 04/20/18 11:40 Urine Nitrite Neg (Negative) 04/20/18 11:40 Urine Bilirubin Neg (Negative) 04/20/18 11:40 Urine Urobilinogen < 2.0 mg/dL (<2.0) 04/20/18 11:40 Ur Leukocyte Esterase Tr (Negative) 04/20/18 11:40 Urine WBC (Auto) 1.0 /HPF (0.0-6.0) 04/20/18 11:40 Urine RBC (Auto) 1.0 /HPF (0.0-6.0) 04/20/18 11:40 U Epithel Cells (Auto) < 1.0 /HPF (0-13.0) 04/20/18 11:40 Urine Bacteria (Auto) 1+ /HPF (Negative) 04/17/18 17:34 Urine Creatinine 13.1 mg/dL (0.1-20.0) 04/20/18 11:41 Urine Sodium 98 mmol/L 04/20/18 11:41 Fraction Sodium Excret 8.2 04/20/18 11:41 Blood Type A POSITIVE 04/20/18 19:00 Antibody Screen Negative 04/20/18 19:00 Crossmatch See Detail 04/20/18 19:00 Nutrition/Malnutrition Assess - Dietary Evaluation Nutrition/Malnutrition Findings: Nutrition Notes Start: 04/18/18 13:01 Freq: Status: Active Protocol: Document 04/24/18 16:39 RM (Rec: 04/24/18 16:44 RM [email or web address]) Nutrition Notes Initial or Follow up Reassessment Current Diagnosis CKD(stage I-IV) Coronary Artery Disease Diabetes Hypertension Heart Failure Other Pertinent Diagnosis COPD, Bilat AKA, GI Bleed Current Diet Renal Labs/Tests Reviewed Pertinent Medications Reviewed Height 5 ft 4 in Weight 46.9 kg [place] Body Weight (kg) 59.09 BMI 17.7 Subjective/Other Information Pt stated that his appetite is good and that he is eating all of his meals. Also stated that he is drinking the Nepro as a snack before bedtime. Percent of energy/protein needs met: 100%/100% Burn Absent Trauma Absent #2 Nutrition Diagnosis Malnutrition Diagnosis Progress(for reassessment Continues documentation) Is patient on ventilator? No Is Patient Ambulatory and/or Out of Bed No REE-([facility] [facility]-confined to bed) 1427.292 Kcal/Kg value to use for calculation 36 Approximate Energy Requirements Using 1688 kcal/Kg Calculation Used for Recommendations Kcal/kg Additional Notes PRO: 58-67g PRO (1.2-1.4 g/kg) Fluid: 1 ml/kcal Nutrition Intervention Change Diet Order: Continue current Add Supplement/Snack (indicate name/kcal Nepro Mixed [place], Butter /protein ) Pecan BID Provides kCal: 850 Provides Protein (gm) 38 Goal #1 Continue to meet at least 75% of calorie and protein needs via PO and ONS intakes Goal #2 Weight maintenance/gain Anticipated Discharge Needs: Renal Follow-Up By: 05/01/18 Additional Comments Follow for PO and ONS intakes
[2018-04-26] MEDS: ROCEPHIN/NS 1 GM/50 ML 1 GM/50 ML BAG IV SCH (10:53)
[2018-04-26] MEDS: K-DUR PO SCH (10:53)
[2018-04-26] MEDS: PROTONIX PO SCH (10:53)
[2018-04-26] MEDS: COREG PO SCH (10:54)
[2018-04-26 11:52] VITALS: BP 146/82
[2018-04-26] MEDS ORDERED: PERCOCET 5/325 PO PRN (11:59)
[2018-04-26] MEDS: SODIUM CHLORIDE FLUSH SYRINGE 10 ML IV SCH (12:12)
== END 2018-04-26 16:33 | DRG 368 ==
LOC: ED 15:12 → 4A 18:25 → 3A 04-24 15:33
PROVIDERS: ADMIT Internal Medicine; ATTEND Hospitalist
PROC: 30233N1 Transfusion of Nonautologous Red Blood Cells into Peripheral Vein, Percutaneous Approach (ICD-10-PCS; 2018-04-17)
PROC: 30233K1 Transfusion of Nonautologous Frozen Plasma into Peripheral Vein, Percutaneous Approach (ICD-10-PCS; 2018-04-18)
PROC: 0W3P8ZZ Control Bleeding in Gastrointestinal Tract, Via Natural or Artificial Opening Endoscopic (ICD-10-PCS; principal; 2018-04-19)
PROC: 30233R1 Transfusion of Nonautologous Platelets into Peripheral Vein, Percutaneous Approach (ICD-10-PCS; 2018-04-21)
DX: K22.6 Gastro-esophageal laceration-hemorrhage syndrome (principal); I50.23 Acute on chronic systolic (congestive) heart failure; N17.0 Acute kidney failure with tubular necrosis; E43 Unspecified severe protein-calorie malnutrition; E87.0 Hyperosmolality and hypernatremia; N39.0 Urinary tract infection, site not specified; D62 Acute posthemorrhagic anemia; Z68.1 Body mass index [BMI] 19.9 or less, adult; I13.0 Hypertensive heart and chronic kidney disease with heart failure and stage 1 through stage 4 chronic kidney disease, or unspecified chronic kidney disease; I48.92 Unspecified atrial flutter; I25.10 Atherosclerotic heart disease of native coronary artery without angina pectoris; I25.5 Ischemic cardiomyopathy; N18.9 Chronic kidney disease, unspecified; E11.22 Type 2 diabetes mellitus with diabetic chronic kidney disease; F32.9 Major depressive disorder, single episode, unspecified; B19.20 Unspecified viral hepatitis C without hepatic coma; D69.6 Thrombocytopenia, unspecified; J44.9 Chronic obstructive pulmonary disease, unspecified; I48.0 Paroxysmal atrial fibrillation; I48.2 Chronic atrial fibrillation; F17.210 Nicotine dependence, cigarettes, uncomplicated; E87.6 Hypokalemia; R79.1 Abnormal coagulation profile; T45.515A Adverse effect of anticoagulants, initial encounter; K44.9 Diaphragmatic hernia without obstruction or gangrene; Z79.01 Long term (current) use of anticoagulants; Z89.612 Acquired absence of left leg above knee; Z89.611 Acquired absence of right leg above knee; Z82.49 Family history of ischemic heart disease and other diseases of the circulatory system; Z95.5 Presence of coronary angioplasty implant and graft; Z95.1 Presence of aortocoronary bypass graft; Z95.810 Presence of automatic (implantable) cardiac defibrillator; Y92.89 Other specified places as the place of occurrence of the external cause; Z79.84 Long term (current) use of oral hypoglycemic drugs
CPT/HCPCS: 36415; 36430; 71045; 76770; 80048; 80053; 80061; 81001; 82550; 82553; 82565; 82570; 82607; 82728; 82747; 82962; 83550; 83735; 83880; 84295; 84300; 84439; 84443; 84484; 85014; 85018; 85025; 85027; 85379; 85384; 85610; 85730; 86850; 86900; 86901; 86920; 93005; 93010; 96365; 96367; 96375; G0378; C9113; J0171; J0696; J1170; J1815; J1940; J2270; J2354; J2405; J2704; J3010; J3430; J3475; J3480; J7030; J7040; J7050; P9016; P9017; P9035